=== PATIENT | male | born 1965 | race Caucasian/White ===

== ENCOUNTER 2019-08-15 09:05 | Inpatient (IN) | payer OTHER ==
[~2019-08-15] VITALS: Ht 183 cm; Wt 214.0 kg
--- NOTE | 2019-08-15 09:38 | History & Physical-Hospitalist ---
History of Present Illness HPI/Chief Complaint CC: New onset AF with elevated BNP and dyspnea HPI: This is a 54yoWM clinic patient of Valentin Lance who presented to the [facility] ER for dyspnea. Workup revealed new onset AF rate controlled with elevated BNP. Patient denies use of O2 and no CPAP and patient appears to have OHS since his BMI is 63. Patient denies CP troponin was negative. Patient reluctant to answer any of my questions. He lives with his mother. Source: patient, family, RN/MD Exam Limitations: no limitations Date Seen 08/15/19 Time Seen by a Provider: 11:00 Attending Physician Xochitl Luz Cheryl Arnp Referring Physician Date of Admission Home Medications & Allergies Home Medications Reviewed patient Home Medication Reconciliation performed by pharmacy medication reconciliations dermatology technician and/or nursing. Patients Allergies have been reviewed. Allergies Allergies Coded Allergies No Known Drug Allergies (Unverified08/15/19) Past Avywefx-Vdpaun-Mtxpbx Hx Past Med/Social Hx: Reviewed Nursing Past Med/Soc Hx, Reviewed and Corrections made Patient Social History Marrital Status: single Employed/Student: employed Alcohol Use: Denies Use Smoking Status: Former Smoker Recent Foreign Travel: No Contact w/other who traveled: No Past Medical History Cardiac: Hypertension Review of Systems Constitutional: see HPI Respiratory: dyspnea on exertion Cardiovascular: chest pain Physical Exam Physical Exam Vital Signs Vital Signs - First Documented 08/15/19 08/15/19 08/15/19 10:07 12:00 12:14 Temp 36.4 Pulse 85 Resp 14 B/P (MAP) 128/96 Pulse Ox 98 O2 Delivery Room Air O2 Flow Rate 1.00 FiO2 21 Capillary Refill : Height, Weight, BMI Height: '" Weight: lbs. oz. kg; BMI Method: General Appearance: No Apparent Distress, Chronically ill, Obese Eyes: Right Eye Normal Inspection, Right Eye PERRL HEENT: PERRL/EOMI, Normal ENT Inspection, Pharynx Normal, Moist Mucous Membranes Neck: Full Range of Motion, Normal Inspection, Non Tender Respiratory: Chest Non Tender, Lungs Clear, Normal Breath Sounds, No Accessory Muscle Use, No Respiratory Distress, Decreased Breath Sounds Cardiovascular: No Edema, No Gallop, No JVD, No Murmur, Normal Peripheral Pulses, Irregularly Irregular Gastrointestinal: Normal Bowel Sounds, No Organomegaly, No Pulsatile Mass, Non Tender, Soft Back: Normal Inspection, No CVA Tenderness, No Vertebral Tenderness Extremity: Normal Capillary Refill, Normal Inspection, Normal Range of Motion, Non Tender, No Calf Tenderness, No Pedal Edema Neurologic/Psychiatric: Alert, Oriented x3, No Motor/Sensory Deficits, Normal Mood/Affect Skin: Normal Color, Warm/Dry Lymphatic: No Adenopathy Results Results/Procedures Labs Laboratory Tests 08/15/19 12:21 Patient resulted labs reviewed. Assessment/Plan Admission Diagnosis Assessment: New onset AF with dyspnea Suspicious for OHS HTN DM Plan: Cardiology eval Admission Status: Inpatient Order (span 2 midnights) Reason for Inpatient Admission: New AF with BNP elevation Diagnosis/Problems Diagnosis/Problems (1) Atrial fibrillation with normal ventricular rate XOCHITL LUZ DO Aug 15, 2019 09:38
[2019-08-15 10:07] VITALS: BP 128/96
[2019-08-15 10:15] VITALS: BP 117/80
[2019-08-15] MEDS ORDERED: GLIP10TA13 PO (11:14)
[2019-08-15] MEDS ORDERED: FURO40TA4 PO (11:14)
[2019-08-15] MEDS ORDERED: METO100T12 PO (11:14)
[2019-08-15] MEDS ORDERED: LISI40TA PO (11:14)
[2019-08-15] MEDS ORDERED: PRAV40TA2 PO (11:14)
[2019-08-15] MEDS ORDERED: AMLO10TA7 PO (11:14)
[2019-08-15] MEDS ORDERED: METF-399 PO (11:14)
[2019-08-15] MEDS ORDERED: HYDR25TA4 PO (11:14)
[2019-08-15] MEDS: NS IV 1000 ML 1,000 ML IV SCH (11:37)
[2019-08-15] MEDS ORDERED: ASPI-983 PO (11:46)
[2019-08-15] MEDS ORDERED: MULT1TAB69 PO (11:46)
[2019-08-15] MEDS ORDERED: TURM538C PO (11:46)
[2019-08-15] MEDS ORDERED: GLUC-113 PO (11:46)
--- NOTE | 2019-08-15 11:46 | NUR ---
PATIENT STATES HE GAVE A LIST OF MEDICATIONS TO DAVID FROM HIS PHONE, HIS PHONE HAS SINCE DONE AN UPDATE AND HE IS NOT ABLE TO RETRIEVE THE LIST. HE STATES I WILL HAVE TO GET THE LIST FROM [facility] BECAUSE WITHOUT THE LIST ON HIS PHONE HE DOES NOT KNOW WHAT HE TAKES. I HAVE REQUESTED A LIST BE FAXED FROM [facility]. I UPDATED THE MED REC WITH WHAT HAS BEEN FILLED RECENTLY AT [facility] AND THE OT MEDS HE COULD REMEMBER TO LIST. I WILL FINALIZE THE MED REC WHEN I RECEIVE LIST FROM [facility]. THERE WAS NOT A MED LIST ON HIS CHART. Addendum: 08/15/19 at 1347 by ANSLEY SHEPHERD [facility] RECEIVED THE LIST FROM [facility] AT THIS TIME AND COMPARED IT WITH THE EXT MED HX. THE EXT MED HX SHOWS WHERE THE PATIENT HAS FILLED SEVERAL MEDICATIONS FOR 90 DAYS IN MAY AND THEN 10 DAYS LATER FILLED DOUBLE THE STRENGTH OF FUROSEMIDE AND IN JUNE FILLED DOUBLE THE STRENGTH OF LISINOPRIL, METFORMIN, AND GLIPIZIDE. HE STATES [facility] FILLED THE METFORMIN INCORRECTLY AND THEY WERE LOWERING HIS METFORMIN DOSE TO 500MG BID, HE DOES NOT KNOW WHY THE FILLED THE 1000MG BUT HE CUTS THEM IN HALF. OTHERWISE HE STATES HE TAKES THEM PRESCRIBED ON THE BOTTLES. THE MOST RECENTLY FILLED MEDS ON THE EXT MED HX MATCH THE LIST FROM [facility] EXCEPT FOR ON THE METOPROLOL. [facility] STATES 50MG TAB 2 TABS BID HOWEVER [facility] FILLED A 100MG TAB 2 TABS BID. I DISCUSSED THIS IN DETAIL WITH THE PATIENT AND HE IS PRETTY SURE HE TAKES IT PRESCRIBED ON THE BOTTLE. I UPDATED THE MED REC WITH THE MOST RECENTLY FILLED DIRECTIONS. THE TOPIRAMATE WAS LAST FILLED 100MG #90 11-18-18 - HE STATES HE HAS HAD 25MG TABS IN THE PAST WELL AND HAS BEEN PRESCRIBED THIS FOR WEIGHT LOSS. WHEN HE WAS TAKING IT DURING THE DAY IT PUT HIM IN A FOG SO FOR A LONG TIME HE STOPPED TAKING IT ALL TOGETHER. HE STATES NOW HE TAKES 100MG AT HS AND DOES NOT HAVE TROUBLE WITH THE FOG FEELING DURING THE DAY. HE HAD 25MG TABS LEFTOVER FROM BEFORE AND TOOK 4 OF THEM UNTIL THEY WERE GONE SO HE STATES HE IS NOT OUT OF THESE AND HAS BEEN TAKING THEM BUT THAT IS WHY HE HAS NOT FILLED THEM RECENTLY. HE TAKES THE FOLLOWING OTC: [employer] DAILY ASPIRIN 325MG DAILY GLUCOSAMINE AND CHONDROITIN TURMERIC DAILY
[2019-08-15 12:00] VITALS: BP 124/79
[2019-08-15 12:14] VITALS: BP 128/96
[2019-08-15 12:28] LABS: BASOPHILS % (AUTO) 0 % (0-10); EOSINOPHILS # (AUTO) 0.2 10^3/uL (0.0-0.3); EOSINOPHILS % (AUTO) 3 % (0-10); HEMATOCRIT 40 % (40-54); HEMOGLOBIN 12.8 G/DL (13.3-17.7); LYMPHOCYTES # (AUTO) 0.8 X 10^3 (1.0-4.0); LYMPHOCYTES % (AUTO) 11 % (12-44); MEAN CORPUSCULAR HEMOGLOBIN 29 PG (25-34); MEAN CORPUSCULAR HGB CONC 32 G/DL (32-36); MEAN CORPUSCULAR VOLUME 91 FL (80-99); MEAN PLATELET VOLUME 10.5 FL (7.4-10.4); MONOCYTES # (AUTO) 0.6 X 10^3 (0.0-1.0); MONOCYTES % (AUTO) 9 % (0-12); NEUTROPHILS # (AUTO) 5.3 X 10^3 (1.8-7.8); NEUTROPHILS % (AUTO) 76 % (42-75); PLATELET COUNT 218 10^3/uL (130-400); RED CELL DISTRIBUTION WIDTH 15.9 % (10.0-14.5)
--- NOTE | 2019-08-15 12:38 | NUR ---
VERBAL ORDERS RECEIVED FROM DR KEYS. WRITTEN DOWN AND REPEATED BACK TO DR KEYS.
[2019-08-15] MEDS ORDERED: FUROSEMIDE 40 MG/4 ML INJ (LASIX) IVP NR (12:45)
[2019-08-15] MEDS ORDERED: AMIODARONE FOR BOLUS 150 MG in D5W 100 ML IVPB 100 ML IV NR (12:45)
[2019-08-15 12:50] LABS: ALANINE AMINOTRANSFERASE 31 U/L (0-55); ALBUMIN 3.8 GM/DL (3.2-4.5); ALKALINE PHOSPHATASE 88 U/L (40-136); BILIRUBIN,TOTAL 0.3 MG/DL (0.1-1.0); BUN/CREATININE RATIO 20; CALCIUM 8.5 MG/DL (8.5-10.1); CARBON DIOXIDE 25 MMOL/L (21-32); CHLORIDE 103 MMOL/L (98-107); CREATININE SERUM 1.19 MG/DL (0.60-1.30); GFR ESTIMATED > 60; GLUCOSE 129 MG/DL (70-105); POTASSIUM 3.9 MMOL/L (3.6-5.0); SODIUM 138 MMOL/L (135-145)
[2019-08-15] MEDS: AMIODARONE INJECTION 450 MG in D5W IV SOLUTION (EXCEL) 250 ML IV SCH ×2 (12:59→21:05)
--- NOTE | 2019-08-15 13:14 | Consultation-Cardiology ---
HPI-Cardiology Cardiology Consultation: Date of Consultation 08/15/19 Date of Admission Attending Physician Xochitl Luz DO Admitting Physician Paula Blandon Consulting Physician Attila BAXTER MD HPI: Time Seen by a Provider: 12:30 Chief Complaint: Chest pain This is a 54-year-old gentleman who has history of diabetes and tobacco use. Morbidly obese. Presented to [facility] for shortness of breath as well as chest pain. He was found to have new onset atrial fibrillation. He was transferred to [facility] for further management. When I saw the patient he was not having any further chest pain. Shortness of breath had improved. No palpitations. Substernal chest pain. No significant radiation. No exacerbating or relieving factors. Moderate to severe intensity. Intermittent. No significant pertinent family history. Denies smoking however chews tobacco. Review of Systems-Cardiology Review of Systems Constitutional: As described under HPI; No As described under HPI, No no symptoms reported, No chills, No fever, No lightheadedness Eyes: No As described under HPI, No no symptoms reported, No blindness, No blurred vision, No contact lenses, No drainage, No decreased acuity, No foreign body sensation, No pain, No vision change Ears/Nose/Throat: No As described under HPI, No no symptoms reported, No chronic hearing loss, No ear discharge, No ear pain, No nasal drainage, No ulcerations Respiratory: No no symptoms reported; As described under HPI; No As described under HPI, No cough, No orthopnea; shortness of breath; No SOB with excertion Cardiovascular: No no symptoms reported; As described under HPI; No As described under HPI; chest pain; No edema, No irregular heart rate, No lightheadedness, No palpitations Gastrointestinal: No no symptoms reported, No As described under HPI, No abdomen distended, No abdominal pain, No blood streaked bowels, No constipation, No diarrhea, No nausea, No vomiting, No stool coloration changes Genitourinary: No As described under HPI, No burning, No dysuria, No discharge, No frequency, No flank pain, No hematuria, No urgency Skin: No rash, No skin related problems, No ulcerations Psychiatric/Neurological: No anxiety, No depression, No seizure, No focal weakness, No syncope Hematologic: No bleeding abnormalities EUJ-Nmqnzu-Zrhama Hx Patient Social History Recent Foreign Travel: No Recent Infectious Disease Expo: No Past Medical History PMH As described under Assessment. Allergies and Home Medications Allergies Coded Allergies: No Known Drug Allergies (Unverified , 08/15/19) Home Medications Amlodipine Besylate 10 Mg Tablet, 10 MG PO DAILY, (Reported) Aspirin 325 Mg Tablet.dr, 325 MG PO DAILY, (Reported) Furosemide 40 Mg Tablet, 40 MG PO DAILY, (Reported) Glipizide 10 Mg Tablet, 10 MG PO BID, (Reported) Gluc 2Kcl/Chondr/Maximo Hy/Hy AC 1 Each Capsule, 1 CAP PO DAILY, (Reported) Hydrochlorothiazide 25 Mg Tablet, 25 MG PO DAILY, (Reported) Lisinopril 40 Mg Tablet, 40 MG PO DAILY, (Reported) Metformin HCl 1,000 Mg Tablet, 500 MG PO BID, (Reported) TAKES 1/2 (1000MG) TABLET Metoprolol Tartrate 100 Mg Tablet, 200 MG PO BID, (Reported) TAKES 2 (100MG) TABLETS Multivitamin 1 Each Tablet, 1 TAB PO DAILY, (Reported) Pravastatin Sodium 40 Mg Tablet, 40 MG PO HS, (Reported) Topiramate 100 Mg Tablet, 100 MG PO HS, (Reported) Turmeric Root Extract 538 Mg Capsule, 538 MG PO DAILY, (Reported) Patient Home Medication List Home Medication List Reviewed: Yes Physical Exam-Cardiology Physical Exam Vital Signs/I&O 08/16/19 08/16/19 08/16/19 08/16/19 04:00 04:00 07:00 08:00 Temp 36.0 Pulse 83 105 Resp 16 B/P (MAP) 126/95 (105) Pulse Ox 96 98 96 O2 Delivery Nasal Cannula Nasal Cannula Nasal Cannula O2 Flow Rate 1.00 2.00 1.00 08/16/19 08/16/19 08/16/19 08/16/19 08:00 08:00 09:00 09:13 Temp 36.3 Pulse 81 Resp 14 B/P (MAP) 147/106 (120) Pulse Ox 100 100 O2 Delivery Nasal Cannula Nasal Cannula Nasal Cannula O2 Flow Rate 2.00 1.00 2.00 FiO2 97 08/16/19 08/16/19 08/16/19 08/16/19 09:17 10:00 12:00 12:00 Pulse 75 86 Resp 8 19 B/P (MAP) 166/106 (126) 138/102 (114) Pulse Ox 96 96 96 O2 Delivery Nasal Cannula Nasal Cannula Nasal Cannula Nasal Cannula O2 Flow Rate 1.00 1.00 1.00 1.00 08/16/19 12:00 Temp 36.1 08/16/19 00:00 Intake Total 650 ml Output Total 2500 ml Balance -1850 ml Capillary Refill : Constitutional: appears stated age; No apparent distress; well-developed, well- nourished HEENT: PERRL; No discharge; hearing is well preserved, oral hygience is good; No ulceration, No xanthelasmas are seen Neck: No carotid bruit; carotid pulses are 2 + bilaterally Respiratory: chest is bilaterally symmetric, lungs clear to auscultation Cardiovascular: irregularly irregular, S1 and S2 Gastrointestinal: soft, distended; No spleenomegaly Rectal: deferred Extremities: normal range of motion, non-tender, normal inspection; No clubbing, No cyanosis; no lower extremity edema bilateral; No significant edema Neurologic/Psychiatric: no motor/sensory deficits, alert, normal mood/affect, oriented x 3, power is 5/5 both on sides Skin: normal color, warm/dry; No rash, No ulcerations Data Review Labs Laboratory Tests 08/15/19 18:30: Troponin I 0.116H 08/15/19 20:52: Glucometer 184H 08/16/19 00:22: Troponin I 0.089H, White Blood Count 7.4, Red Blood Count 4.43, Hemoglobin 12.6L , Hematocrit 41, Mean Corpuscular Volume 91, Mean Corpuscular Hemoglobin 28, Mean Corpuscular Hemoglobin Concent 31L, Red Cell Distribution Width 16.1H, Platelet Count 239, Mean Platelet Volume 10.2, Neutrophils (%) (Auto) 76H, Lymphocytes (%) (Auto) 12, Monocytes (%) (Auto) 8, Eosinophils (%) (Auto) 3, B asophils (%) (Auto) 0, Neutrophils # (Auto) 5.7, Lymphocytes # (Auto) 0.9L, Monocytes # (Auto) 0.6, Eosinophils # (Auto) 0.3, Basophils # (Auto) 0.0, Sodium Level 140, Potassium Level 3.6, Chloride Level 101, Carbon Dioxide Level 26, A nion Gap 13, Blood Urea Nitrogen 24H, Creatinine 1.26, Estimat Glomerular Filtration Rate 60, BUN/Creatinine Ratio 19, Glucose Level 154H, Calcium Level 8.6, Corrected Calcium 8.8, Total Bilirubin 0.4, Aspartate Amino Transf (AST/SGOT) 16, Alanine Aminotransferase (ALT/SGPT) 31, Alkaline Phosphatase 82, Total Protein 7.0, Albumin 3.8 08/16/19 11:45: Glucometer 136H ECG Impression ECG Initial ECG Impression: Atrial Fibrillation A/P-Cardiology Assessment/Admission Diagnosis Chest pain, Diabetes, Acute congestive heart failure, New onset atrial fibrillation, Tobacco use, Hypertension, Hyperlipidemia Plan Chest pain, check serial troponin. EKG shows atrial fibrillation but no significant ST-T wave abnormalities. Echocardiogram. If positive troponin coronary angiography will be recommended. Diabetes, deferred to the primary team. Patient is at high risk for CAD. Acute congestive heart failure, Lasix. BNP is mildly elevated. Echocardiogram to check for systolic or diastolic congestive heart failure. New onset atrial fibrillation, Xarelto. Start amiodarone infusion. Cardizem CD for rate control. Tobacco use, strongly recommended to quit tobacco use Hypertension, Cardizem. Hyperlipidemia, continue statin therapy. Thank you for your consultation. Please call me if you have any questions. Obdulia Baxter MD, FACP, FACC, FSCAI, FHRS, CCDS Interventional Cardiology Cardiac Electrophysiology Vascular Medicine and Endovascular Interventions Clinical Quality Measures DVT/VTE Risk/Contraindication: Risk Factor Score Per Nursin RFS Level Per Nursing on Admit: 2=Moderate Attila BAXTER MD Aug 15, 2019 13:14
--- NOTE | 2019-08-15 13:21 | Pulmonary Consultation ---
History of Present Illness History of Present Illness Date Seen by Provider: Aug 15, 2019 Time Seen by Provider: 13:19 Date of Admission History of Present Illness 54yo morbidly obese pt presented from [facility] secondary to AFib RVR. Echo shows EF 45%. Pt has not ever had PSG. Allergies and Home Medications Allergies Coded Allergies: No Known Drug Allergies (Unverified , 08/15/19) Home Medications Amlodipine Besylate 10 Mg Tablet, 10 MG PO DAILY, (Reported) Aspirin 81 Mg Tablet.dr, 81 MG PO DAILY, (Reported) Furosemide 40 Mg Tablet, 40 MG PO DAILY, (Reported) Glipizide 10 Mg Tablet, 10 MG PO BID, (Reported) Gluc 2Kcl/Chondr/Maximo Hy/Hy AC 1 Each Capsule, 1 CAP PO DAILY, (Reported) Hydrochlorothiazide 25 Mg Tablet, 25 MG PO DAILY, (Reported) Lisinopril 40 Mg Tablet, 40 MG PO DAILY, (Reported) Metformin HCl 1,000 Mg Tablet, 1,000 MG PO BID, (Reported) Metoprolol Tartrate 100 Mg Tablet, 200 MG PO BID, (Reported) TAKES 2 (100MG) TABLETS Multivitamin 1 Each Tablet, 1 TAB PO DAILY, (Reported) Pravastatin Sodium 40 Mg Tablet, 40 MG PO HS, (Reported) Turmeric Root Extract 538 Mg Capsule, 538 MG PO DAILY, (Reported) Past Xlmjsbl-Fvloij-Gzlghn Hx Patient Social History Recent Foreign Travel: No Contact w/Someone Who Travel: No Recent Infectious Disease Expo: No Sepsis Event Evaluation Height, Weight, BMI Height: '" Weight: lbs. oz. kg; 63.54 BMI Method: Exam Exam Vital Signs Date Time Temp Pulse Resp B/P (MAP) Pulse Ox O2 Delivery O2 Flow Rate FiO2 08/15/19 12:27 76 08/15/19 12:14 36.4 85 98 21 08/15/19 12:00 75 124/79 (94) 96 Room Air 08/15/19 12:00 35.9 08/15/19 10:41 76 08/15/19 10:15 70 10 117/80 (92) 99 Room Air 08/15/19 10:07 36.4 85 14 128/96 98 Room Air Height & Weight Height: '" Weight: lbs. oz. kg; 63.54 BMI Method: Results Lab Laboratory Tests 08/15/19 12:21 Assessment/Plan Assessment/Plan Mobid obesity with OHS -Check ABG -Will need out pt testing Afib RVR -Currently on Amio per cardiology CHF EF 45% -QUAN Falcon DO Aug 15, 2019 13:21
[2019-08-15] MEDS ORDERED: ASPI325T32 PO (13:31)
[2019-08-15] MEDS ORDERED: TOPI100T11 PO (13:34)
[2019-08-15] MEDS ORDERED: RT-ALBUTEROL SULF 2.5 MG/3 ML PRE-MIX VIAL INH PRN (14:00)
--- NOTE | 2019-08-15 14:26 | Diagnostic Imaging Report ---
INDICATION: Dyspnea. TIME OF EXAM: 1:55 PM No prior studies are available for comparison. The heart is enlarged. Lungs are clear. No infiltrates or evidence of congestive failure is seen. No effusion or pneumothorax is detected. IMPRESSION: Cardiomegaly. No other significant abnormality is detected. Dictated by: Dictated on workstation # [id number]
[2019-08-15 14:47] LABS: ABG BASE EXCESS 3.2 MMOL/L (-2.5-2.5); ABG OXYGEN SATURATION 95 % (94-100); ABG PCO2 44 MMHG (35-45); ABG PH 7.41 (7.37-7.43); ABG PO2 69 MMHG (79-93)
[2019-08-15 14:48] LABS: ALLENS TEST POS; INSPIRED O2 1L; PATIENT TEMP 36.3; VENTILATOR NO
--- NOTE | 2019-08-15 15:22 | NUR ---
THIS NURSE NOTIFIED DR KEYS OF PT TROPONIN. NO NEW ORDERS AT THIS TIME. WILL CONTINUE TO MONITOR.
[2019-08-15] MEDS: RIVAROXABAN 20 MG TABLET (XARELTO) PO SCH (17:23)
[2019-08-15] MEDS ORDERED: RIVAROXABAN 15 MG TABLET (XARELTO) PO SCH (19:00)
[2019-08-15 20:00] VITALS: BP 159/93
[2019-08-16] VITALS (15 sets, daily range): BP systolic 119–170; BP diastolic 75–115
[2019-08-16] MEDS: NS IV 1000 ML 1,000 ML IV SCH ×2 (00:22→16:16)
[2019-08-16 00:37] LABS: BASOPHILS % (AUTO) 0 % (0-10); EOSINOPHILS # (AUTO) 0.3 10^3/uL (0.0-0.3); EOSINOPHILS % (AUTO) 3 % (0-10); HEMATOCRIT 41 % (40-54); HEMOGLOBIN 12.6 G/DL (13.3-17.7); LYMPHOCYTES # (AUTO) 0.9 X 10^3 (1.0-4.0); LYMPHOCYTES % (AUTO) 12 % (12-44); MEAN CORPUSCULAR HEMOGLOBIN 28 PG (25-34); MEAN CORPUSCULAR HGB CONC 31 G/DL (32-36); MEAN CORPUSCULAR VOLUME 91 FL (80-99); MEAN PLATELET VOLUME 10.2 FL (7.4-10.4); MONOCYTES # (AUTO) 0.6 X 10^3 (0.0-1.0); MONOCYTES % (AUTO) 8 % (0-12); NEUTROPHILS # (AUTO) 5.7 X 10^3 (1.8-7.8); NEUTROPHILS % (AUTO) 76 % (42-75); PLATELET COUNT 239 10^3/uL (130-400); RED CELL DISTRIBUTION WIDTH 16.1 % (10.0-14.5); WHITE BLOOD COUNT 7.4 10^3/uL (4.3-11.0)
[2019-08-16 01:01] LABS: ALBUMIN 3.8 GM/DL (3.2-4.5); BILIRUBIN,TOTAL 0.4 MG/DL (0.1-1.0); CALCIUM 8.6 MG/DL (8.5-10.1); CREATININE SERUM 1.26 MG/DL (0.60-1.30); POTASSIUM 3.6 MMOL/L (3.6-5.0)
--- NOTE | 2019-08-16 05:55 | Pulmonary Progress Note ---
Subjective Time Seen by a Provider: 05:55 Subjective/Events-last exam Still on Amio gtt. No complications noted. Sepsis Event Evaluation Height, Weight, BMI Height: '" Weight: lbs. oz. kg; 63.54 BMI Method: Exam Exam Vital Signs Date Time Temp Pulse Resp B/P (MAP) Pulse Ox O2 Delivery O2 Flow Rate FiO2 08/16/19 04:00 36.0 83 16 126/95 (105) 98 Nasal Cannula 2.00 08/16/19 04:00 96 Nasal Cannula 1.00 08/16/19 01:00 84 08/16/19 00:00 79 14 119/75 (90) 98 Nasal Cannula 2.00 08/16/19 00:00 96 Nasal Cannula 1.00 08/15/19 22:20 Nasal Cannula 2.00 08/15/19 21:00 Nasal Cannula 2.00 96 08/15/19 20:00 84 23 159/93 (115) 94 Room Air 08/15/19 20:00 36.3 08/15/19 20:00 96 Nasal Cannula 1.00 08/15/19 19:00 80 08/15/19 16:00 36.2 08/15/19 16:00 96 Nasal Cannula 1.00 08/15/19 16:00 90 32 97 Room Air 08/15/19 12:27 76 08/15/19 12:14 36.4 85 98 21 08/15/19 12:00 93 Nasal Cannula 1.00 08/15/19 12:00 75 124/79 (94) 96 Room Air 08/15/19 12:00 35.9 08/15/19 10:41 76 08/15/19 10:25 91 Room Air 08/15/19 10:15 70 10 117/80 (92) 99 Room Air 08/15/19 10:07 36.4 85 14 128/96 98 Room Air I & O 08/16/19 07:00 Intake Total 650 ml Output Total 2500 ml Balance -1850 ml Height & Weight Height: '" Weight: lbs. oz. kg; 63.54 BMI Method: General Appearance: No Apparent Distress, Chronically ill, Obese HEENT: PERRL/EOMI, Normal ENT Inspection, Pharynx Normal, Moist Mucous Membranes Neck: Full Range of Motion, Normal Inspection, Non Tender Respiratory: Chest Non Tender, Lungs Clear, Normal Breath Sounds, No Accessory Muscle Use, No Respiratory Distress, Decreased Breath Sounds Cardiovascular: No Edema, No Gallop, No JVD, No Murmur, Normal Peripheral Pulses, Irregularly Irregular Capillary Refill: Less Than 3 Seconds Extremity: Normal Capillary Refill, Normal Inspection, Normal Range of Motion, Non Tender, No Calf Tenderness, No Pedal Edema Neurologic/Psychiatric: Alert, Oriented x3, No Motor/Sensory Deficits, Normal Mood/Affect Skin: Normal Color, Warm/Dry Lymphatic: No Adenopathy Results Lab Laboratory Tests 08/15/19 12:21 08/16/19 00:22 Assessment/Plan Assessment/Plan Mobid obesity with OHS -ABG-- C02 44 -Will need out pt PSG Afib RVR -Currently on Amio per cardiology CHF EF 45% -QUAN Falcon DO Aug 16, 2019 05:55
[2019-08-16] MEDS: DILTIAZEM 120 MG (CARDIZEM CD) CAP PO SCH ×2 (08:00→12:10)
--- NOTE | 2019-08-16 09:05 | NUR ---
This nurse notified of patients blood pressure 152/102, order received to give patient amlodipine 5mg PO one time now.
[2019-08-16] MEDS ORDERED: amLODIPine 5 MG (NORVASC) TAB ONE (09:13)
[2019-08-16] MEDS ORDERED: amLODIPine 5 MG (NORVASC) TAB PO NR (09:15)
--- NOTE | 2019-08-16 11:15 | Progress Note - Hospitalist ---
Subjective HPI/CC On Admission Date Seen by Provider: Aug 16, 2019 Time Seen by Provider: 10:00 CC: New onset AF with elevated BNP and dyspnea HPI: This is a 54yoWM clinic patient of Valentin Natalio who presented to the [facility] ER f or dyspnea. Workup revealed new onset AF rate controlled with elevated BNP. Patient denies use of O2 and no CPAP and patient appears to have OHS since his BMI is 63. Patient denies CP troponin was negative. Patient reluctant to answer any of my questions. He lives with his mother. Subjective/Events-last exam patient complains of being hungry this Morning. In addition he notes that his back and feet hurt. He has been awake since 1230 this morning. Blood pressure is slightly elevated this morning. Review of Systems Cardiovascular: Edema Objective Exam Vital Signs Vital Signs Date Time Temp Pulse Resp B/P (MAP) Pulse Ox O2 Delivery O2 Flow Rate FiO2 08/17/19 12:00 94 Room Air 08/17/19 12:00 36.2 84 15 156/100 (118) 08/17/19 09:00 94 08/17/19 04:00 2.00 Capillary Refill : Less Than 3 Seconds General Appearance: No Apparent Distress, WD/WN, Obese HEENT: Normal ENT Inspection Neck: Limited Range of Motion Respiratory: Chest Non Tender, Lungs Clear, Normal Breath Sounds, No Accessory Muscle Use, No Respiratory Distress Cardiovascular: Irregularly Irregular Gastrointestinal: Soft, Distended Rectal: Deferred Back: Normal Inspection, No CVA Tenderness, No Vertebral Tenderness Extremity: Pedal Edema (with chronic venous stasis changes and superficial ulcerations) Neurologic/Psychiatric: Alert, Oriented x3, No Motor/Sensory Deficits, Normal Mood/Affect Results/Procedures Lab Laboratory Tests 08/17/19 03:21 Patient resulted labs reviewed. Assessment/Plan Assessment and Plan Assess & Plan/Chief Complaint new onset A. fib rate controlled currently-with elevated BNP Hypertension Type II diabetes Obstructive sleep apnea Morbid obesity Chronic venous insufficiency Peripheral neuropathy Plan per - will need evaluation for sleep apnea and possible nasal pillows. Patient would benefit from wound care consult because of chronic venous insufficiency and peripheral neuropathy. He is at high risk for complications. Possible CAD - heart cath today Clinical Quality Measures DVT/VTE Risk/Contraindication: Risk Factor Score Per Nursin RFS Level Per Nursing on Admit: 2=Moderate DONNA PICKARD MD Aug 16, 2019 11:15
[2019-08-16] MEDS: AMIODARONE INJECTION 450 MG in D5W IV SOLUTION (EXCEL) 250 ML IV SCH (12:11)
[2019-08-16] MEDS ORDERED: HEParin (CATH LAB) 2,000 ML IV ONE (12:33)
[2019-08-16] MEDS ORDERED: LIDOCAINE 1% INJ 20 ML 20 ML VIAL ONE (12:33)
[2019-08-16] MEDS ORDERED: NS IV 1000 ML 1,000 ML ONE (12:33)
[2019-08-16] MEDS ORDERED: fentaNYL INJECTION 100 MCG/2 ML AMP ONE ×2 (12:41→14:21)
[2019-08-16] MEDS ORDERED: MIDAZOLAM 5 MG/5 ML (VERSED) VIAL ONE ×2 (12:41→13:37)
--- NOTE | 2019-08-16 13:10 | NUR ---
Pt to dental laboratory technician via bed
[2019-08-16] MEDS ORDERED: HEParin 1000 UNIT/ML (10ML VIAL) FOR BOLUS ONE (13:52)
[2019-08-16] MEDS ORDERED: TICAGRELOR 90 MG TABLET (BRILINTA) PO ONE (14:02)
[2019-08-16] MEDS ORDERED: ASPIRIN 81 MG CHEW (CHILDREN'S ASA) ONE (14:02)
[2019-08-16] MEDS ORDERED: NITRO DRIP 25000 MCG/D5W 0 ML IV ONE (14:07)
--- NOTE | 2019-08-16 14:43 | Cardiac Procedure Note-CS/ASA ---
Pre-Procedure Note Pre-Op Procedure Note H&P Reviewed The H&P was reviewed, patient examined and no changes noted. Date H&P Reviewed: Aug 16, 2019 Time H&P Reviewed: 12:30 Conscious Sedation Pre-Proced Time 12:30 ASA Score 3 For ASA 3 and 4: Consider anesthesia and medical clearance. Also, for patients with a history of failed moderate sedation consider anesthesia. Airway Lungs Heart ASA score ASA 1: a normal healthy patient ASA 2: a patient with a mild systemic disease (mid diabetes, controlled hypertension, obesity ASA 3: a patient with a severe systemic disease that limits activity (angina, COPD, prior Myocardial infarction) ASA 4: a patient with an incapacitating disease that is a constant threat to life (CHF, renal failure) ASA 5: a moribund patient not expected to survive 24 hrs. (ruptured aneurysm) ASA 6: a declared brain- patient whose organs are being harvested. For emergent operations, add the letter E after the classification Mallampati Classification Grade 1 Sedation Plan Analgesia, Amnesia, Plan communicated to team members, Discussed options with patient/fam, Discussed risks with patient/fam The patient is an appropriate candidate to undergo the planned procedure, sedation, and anesthesia. The patient immediately re-assessed prior to indication. Attila KEYS MD Aug 16, 2019 14:43
--- NOTE | 2019-08-16 14:56 | Coronary Angiography & PCI ---
Coronary Angiography & PCI DATE OF PROCEDURE: 08/16/19 INDICATION: NSTEMI PREOPERATIVE DIAGNOSIS: Non-STEMI POSTOPERATIVE DIAGNOSIS: Severe RCA and OM1 stenosis treated successfully with drug-eluting stents. HISTORY: This is a 54-year-old gentleman with history of diabetes and chewing tobacco. He presents with non-STEMI. The patient also has new onset atrial fibrillation with controlled rate on Xarelto. Therefore, the patient was scheduled for coronary angiography. PROCEDURES PERFORMED: 1.Coronary angiography. 2.Left heart catheterization. 3.PCI to the distal RCA with drug-eluting stent. 4. PCI to the proximal OM1 with drug-eluting stent COMPLICATIONS: None. SPECIMENS: None. ESTIMATED BLOOD LOSS: 10 mL ANESTHESIA: Conscious sedation ANTICOAGULATION: IV heparin CONTRAST: 185 mL. FLUOROSCOPY: 8.8 minutes. FLOUROSCOPY DOSE: [id number] mgy. PROCEDURE DETAILS: The patient is a 54 male and was brought to the manager cardiac cath after informed consent was taken. All the risks and complications were explained in detail; this included the risk of bleeding, vascular damage, stroke, AR and even . The patient was draped and prepped in the usual sterile fashion. Arnaldo's test was abnormal therefore Access was gained in the right femoral artery with a 5 Emirati sheath. Coronary angiography and left heart catheterization was performed with a JR4 and JL4 catheter. FINDINGS: 1.Left main: Short left main. No disease. 2.LAD: No focal stenosis. Tapering of the LAD in the midsegment is noted with mild disease distally. 3.Left circumflex artery: Severe proximal OM1 stenosis. Stenosis severity 95 percent. There is mild disease distally in the same vessel. No other focal stenosis is noted. 4.RCA: Mild proximal disease. Severe distal stenosis. Stenosis severity 95 percent. Dominant RCA. 5.Left heart catheterization: LV pressure 138/17 mmHg. LVEDP 13 mmHg. Aortic pressure 120/82 mmHg. No gradient across the aortic valve. Borderline LV function with no clear wall motion abnormalities. RECOMMENDATIONS: 1. PCI to distal RCA is recommended. 2. PCI to proximal OM1 is recommended. INTERVENTION DETAILS: The patient was given aspirin 182 mg and Brilinta 180 mg before the PCI. We upgraded to a 6 Emirati sheath. A JR4 guide catheter, BMW guidewire, IV heparin for anticoagulation. ACT was over 220 seconds. The lesion in the distal RCA was crossed with the BMW wire. Direct stenting was performed with a science Linnea 3 x 28 mm stent at 18 priscilla for 40 seconds. Postdilatation was done with an NC Quantum 3.5 x 20 mm balloon. 3 inflations were done within the proximal and midsegment of the stent. These inflations were for 18 priscilla for 34 seconds, 18 priscilla for 26 seconds, 18 priscilla for 31 seconds. Excellent results with no vascular complications. JL4 guide catheter, BMW guidewire. The lesion in OM1 was crossed with the BMW guidewire. The lesion was direct stented with a science Linnea 3 x 15 mm drug- eluting stent at 18 priscilla for 18 seconds. Post-angiogram showed excellent results with no residue stenosis and KENIA-3 flow. The wire and balloon were taken out. Right femoral artery was closed with a minx device. The patient tolerated procedure well and did not have any complication. CONCLUSIONS: 1. Severe distal RCA and proximal OM1 stenosis treated with drug-eluting stents. 2. Continue aggressive secondary prevention measures. 3. Triple therapy including aspirin, xarelto, Plavix for one month followed by long-term Plavix and Xarelto. Obdulia Baxter MD, FACP, FACC, [facility] Interventional Cardiology Attila BAXTER MD Aug 16, 2019 14:56
--- NOTE | 2019-08-16 15:05 | NUR ---
Patient back to room CU4, patient arrived via bed with electronic lab technician RN. Patient is lying flat upon arrival. VSS. heart cath puncture site to right groin has a gauze and tegaderm dressing over it, dressing is clean dry and intact, Site is soft upon palpation. Patients mother is at bedside. Patient instructed on physicians order for bedrest for 4 hours, patient agreed. Bed in lowest position, wheels locked, call light is in reach. will continue to closely monitor
[2019-08-16] MEDS ORDERED: PATIENT MAY USE OWN MEDS, ALL PO SCH (15:15)
--- NOTE | 2019-08-16 15:25 | Cardiology Progress Note ---
Cardiology SOAP Progress Note Subjective: No further chest pain. Objective: I&O/Vital Signs 08/16/19 08/16/19 08/16/19 08/16/19 04:00 04:00 07:00 08:00 Temp 36.0 Pulse 83 105 Resp 16 B/P (MAP) 126/95 (105) Pulse Ox 96 98 96 O2 Delivery Nasal Cannula Nasal Cannula Nasal Cannula O2 Flow Rate 1.00 2.00 1.00 08/16/19 08/16/19 08/16/19 08/16/19 08:00 08:00 09:00 09:13 Temp 36.3 Pulse 81 Resp 14 B/P (MAP) 147/106 (120) Pulse Ox 100 100 O2 Delivery Nasal Cannula Nasal Cannula Nasal Cannula O2 Flow Rate 2.00 1.00 2.00 FiO2 97 08/16/19 08/16/19 08/16/19 08/16/19 09:17 10:00 12:00 12:00 Pulse 75 86 Resp 8 19 B/P (MAP) 166/106 (126) 138/102 (114) Pulse Ox 96 96 96 O2 Delivery Nasal Cannula Nasal Cannula Nasal Cannula Nasal Cannula O2 Flow Rate 1.00 1.00 1.00 1.00 08/16/19 12:00 Temp 36.1 08/16/19 00:00 Intake Total 650 ml Output Total 2500 ml Balance -1850 ml Constitutional: appears stated age; No apparent distress; well-developed, well- nourished Respiratory: chest is bilaterally symmetric, lungs clear to auscultation Cardiovascular: irregularly irregular, S1 and S2 Gastrointestional: soft, distended; No spleenomegaly Extremities: normal range of motion, non-tender, normal inspection; No clubbing, No cyanosis; no lower extremity edema bilateral; No significant edema Neurologic/Psychiatric: no motor/sensory deficits, alert, normal mood/affect, oriented x 3, power is 5/5 both on sides Skin: normal color, warm/dry; No rash, No ulcerations Results/Procedures: Labs Laboratory Tests 08/15/19 18:30: Troponin I 0.116H 08/15/19 20:52: Glucometer 184H 08/16/19 00:22: Troponin I 0.089H, White Blood Count 7.4, Red Blood Count 4.43, Hemoglobin 12.6L , Hematocrit 41, Mean Corpuscular Volume 91, Mean Corpuscular Hemoglobin 28, Mean Corpuscular Hemoglobin Concent 31L, Red Cell Distribution Width 16.1H, Platelet Count 239, Mean Platelet Volume 10.2, Neutrophils (%) (Auto) 76H, Lymphocytes (%) (Auto) 12, Monocytes (%) (Auto) 8, Eosinophils (%) (Auto) 3, Basophils (%) (Auto) 0, Neutrophils # (Auto) 5.7, Lymphocytes # (Auto) 0.9L, Monocytes # (Auto) 0.6, Eosinophils # (Auto) 0.3, Basophils # (Auto) 0.0, Sodium Level 140, Potassium Level 3.6, Chloride Level 101, Carbon Dioxide Level 26, Anion Gap 13, Blood Urea Nitrogen 24H, Creatinine 1.26, Estimat Glomerular Filtration Rate 60, BUN/Creatinine Ratio 19, Glucose Level 154H, Calcium Level 8.6, Corrected Calcium 8.8, Total Bilirubin 0.4, Aspartate Amino Transf ( AST/SGOT) 16, Alanine Aminotransferase (ALT/SGPT) 31, Alkaline Phosphatase 82, Total Protein 7.0, Albumin 3.8 08/16/19 11:45: Glucometer 136H A/P: Assessment/Dx: Non-STEMI Diabetes, Acute systolic congestive heart failure, New onset atrial fibrillation, Tobacco use, Hypertension, Hyperlipidemia Plan: Non-STEMI, coronary angiography today. Informed consent taken. Diabetes, deferred to the primary team. Acute congestive heart failure, Lasix. BNP is mildly elevated. Echocardiogram done 08/15/2019 showed an EF of 40-45 percent. Moderate to severe left atrial dilatation. New onset atrial fibrillation, Xarelto. On amiodarone infusion. Still in atrial fibrillation. Change Cardizem to metoprolol 50 mg. Tobacco use, strongly recommended to quit tobacco use Hypertension, metoprolol/NEGRITO inhibitor. Hyperlipidemia, high-dose statin therapy. Thank you for your consultation. Please call me if you have any questions. Obdulia Baxter MD, FACP, FACC, FSCAI, FHRS, CCDS Interventional Cardiology Cardiac Electrophysiology Vascular Medicine and Endovascular Interventions Attila BAXTER MD Aug 16, 2019 15:25
[2019-08-16] MEDS ORDERED: RIVAROXABAN 20 MG TABLET (XARELTO) PO SCH (17:00)
[2019-08-16] MEDS: RIVAROXABAN 20 MG TABLET (XARELTO) PO SCH (17:17)
--- NOTE | 2019-08-16 17:18 | NUR ---
Telephone orders received from to hold 1700 xarelto dose today, to order Brilinta 90mg to begin at 0800 tomorrow 08/17/2019 and to hold morning aspirin dose for now.
[2019-08-16] MEDS ORDERED: meTOprolol TARTRATE 50 MG (LOPRESSOR) TAB ONE (20:04)
[2019-08-16] MEDS: CLOPIDOGREL 75 MG (PLAVIX) TABLET PO SCH (20:12)
[2019-08-16] MEDS ORDERED: meTOproloL SUCCINATE 50 MG (TOPROL XL) TAB PO ONE (20:14)
[2019-08-16] MEDS ORDERED: meTOproloL SUCCINATE 50 MG (TOPROL XL) TAB PO SCH (20:15)
--- NOTE | 2019-08-16 20:34 | NUR ---
PT'S B/P 160/115 WITH HR 98, THIS RN CALLED DR. KEYS AT THIS TIME. NEW ORDER RECEIVED FOR 50 MG PO METOPROLOL. THIS RN ALSO VERIFIED WITH DR. KEYS THAT PT HAS PLAVIX, BRILINTA AND XARELTO ON HIS E-MAR. VERIFIED THOSE WERE CORRECT BUT THAT ONLY THE PLAVIX WILL BE GIVEN TONIGHT.
[2019-08-16] MEDS ORDERED: NICOTINE 21 MG (NICODERM) PATCH ONE (21:33)
[2019-08-16] MEDS: NICOTINE 21 MG (NICODERM) PATCH TD SCH (21:38)
[2019-08-17 00:20] VITALS: BP 138/90
[2019-08-17] MEDS: NS IV 1000 ML 1,000 ML IV SCH ×2 (02:40→10:10)
[2019-08-17 03:44] LABS: HEMOGLOBIN 12.6 G/DL (13.3-17.7); MEAN PLATELET VOLUME 10.5 FL (7.4-10.4); WHITE BLOOD COUNT 6.7 10^3/uL (4.3-11.0)
[2019-08-17 04:00] VITALS: BP 132/86
[2019-08-17 04:03] LABS: BUN/CREATININE RATIO 15; CALCIUM 8.5 MG/DL (8.5-10.1); CARBON DIOXIDE 23 MMOL/L (21-32); CHLORIDE 104 MMOL/L (98-107); CREATININE SERUM 1.08 MG/DL (0.60-1.30); GFR ESTIMATED > 60; GLUCOSE 181 MG/DL (70-105); POTASSIUM 3.9 MMOL/L (3.6-5.0); SODIUM 138 MMOL/L (135-145)
[2019-08-17] MEDS ORDERED: TICAGRELOR 90 MG TABLET (BRILINTA) PO SCH (08:00)
[2019-08-17] MEDS: NICOTINE 21 MG (NICODERM) PATCH TD SCH (08:10)
[2019-08-17] MEDS: CLOPIDOGREL 75 MG (PLAVIX) TABLET PO SCH (08:10)
--- NOTE | 2019-08-17 08:21 | Pulmonary Progress Note ---
Sepsis Event Evaluation Height, Weight, BMI Height: '" Weight: lbs. oz. kg; 63.54 BMI Method: Exam Exam Vital Signs Date Time Temp Pulse Resp B/P (MAP) Pulse Ox O2 Delivery O2 Flow Rate FiO2 08/17/19 07:00 105 08/17/19 04:00 93 Nasal Cannula 2.00 08/17/19 04:00 36.6 92 16 132/86 (101) 93 Nasal Cannula 2.00 08/17/19 01:00 83 08/17/19 00:20 37.0 98 18 138/90 (106) 94 Room Air 08/17/19 00:00 92 Room Air 08/16/19 21:00 Room Air 97 08/16/19 20:33 85 18 170/90 (116) 93 Room Air 08/16/19 20:00 93 Room Air 08/16/19 20:00 36.7 08/16/19 20:00 93 17 170/90 (116) 94 Room Air 08/16/19 19:30 98 20 160/115 (130) 94 Room Air 08/16/19 19:00 110 08/16/19 19:00 93 20 160/115 (130) 94 Room Air 08/16/19 18:00 90 17 157/113 (128) 96 Nasal Cannula 1.00 08/16/19 17:00 92 27 149/108 (122) 95 Nasal Cannula 1.00 08/16/19 16:30 87 13 137/97 (110) 96 Nasal Cannula 1.00 08/16/19 16:00 36.6 08/16/19 16:00 95 Nasal Cannula 1.00 08/16/19 16:00 85 14 131/111 (118) 95 Nasal Cannula 1.00 08/16/19 15:45 96 19 96 Room Air 08/16/19 15:30 84 19 139/93 (108) 95 Room Air 08/16/19 15:15 89 25 96 Room Air 08/16/19 15:05 102 08/16/19 15:00 96 123/82 (96) Room Air 08/16/19 12:00 36.1 08/16/19 12:00 86 19 138/102 (114) 96 Nasal Cannula 1.00 08/16/19 12:00 96 Nasal Cannula 1.00 08/16/19 10:00 75 8 166/106 (126) 96 Nasal Cannula 1.00 08/16/19 09:17 Nasal Cannula 1.00 08/16/19 09:13 100 Nasal Cannula 2.00 08/16/19 09:00 Nasal Cannula 1.00 97 l I & O 08/17/19 07:00 Intake Total 1990 ml Output Total 650 ml Balance 1340 ml Height & Weight Height: '" Weight: lbs. oz. kg; 63.54 BMI Method: General Appearance: No Apparent Distress, WD/WN, Obese HEENT: Normal ENT Inspection Neck: Limited Range of Motion Respiratory: Chest Non Tender, Lungs Clear, Normal Breath Sounds, No Accessory Muscle Use, No Respiratory Distress Cardiovascular: Irregularly Irregular Capillary Refill: Less Than 3 Seconds Extremity: Pedal Edema (with chronic venous stasis changes and superficial ulcerations) Neurologic/Psychiatric: Alert, Oriented x3, No Motor/Sensory Deficits, Normal Mood/Affect Skin: Normal Color, Warm/Dry Lymphatic: No Adenopathy Results Lab Laboratory Tests 08/15/19 12:21 08/16/19 00:22 08/17/19 03:21 Assessment/Plan Assessment/Plan Mobid obesity with OHS -ABG-- C02 44 -Will need out pt PSG Afib RVR -cardiology following CHF EF 45% -QUAN Falcon DO Aug 17, 2019 08:21
[2019-08-17] MEDS ORDERED: meTOproloL SUCCINATE 50 MG (TOPROL XL) TAB PO SCH (09:00)
[2019-08-17] MEDS ORDERED: lisINopril 40 MG (PRINIVIL) TABLET PO SCH (09:00)
[2019-08-17] MEDS ORDERED: ASPIRIN E.C. 81 MG (ECOTRIN) TAB PO SCH (09:00)
[2019-08-17] MEDS ORDERED: lisINopril 5 MG (PRINIVIL) TABLET PO SCH (09:00)
[2019-08-17 09:44] LABS: CHOLESTEROL 143 MG/DL (< 200); HDL CHOLESTEROL 34 MG/DL (40-60); TRIGLYCERIDES 164 MG/DL (<150); VLDL CHOLESTEROL 33 MG/DL (5-40)
--- NOTE | 2019-08-17 11:08 | Progress Note - Hospitalist ---
Subjective HPI/CC On Admission Date Seen by Provider: Aug 17, 2019 Time Seen by Provider: 09:15 CC: New onset AF with elevated BNP and dyspnea HPI: This is a 54yoWM clinic patient of Valentin Lance who presented to the [facility] ER f or dyspnea. Workup revealed new onset AF rate controlled with elevated BNP. Patient denies use of O2 and no CPAP and patient appears to have OHS since his BMI is 63. Patient denies CP troponin was negative. Patient reluctant to answer any of my questions. He lives with his mother. Subjective/Events-last exam patient feels better this morning. He had 2 drug eluting stents placed yesterday; one in the left circumflex and one in the RCA. he does admit to chewing tobacco and agrees to pursue cessation. He would like to go home today. He remains in A. fib with good rate control. He is off amiodarone.. Blood pressure is improved. Dr. Ross will pursue an overnight sleep study as an outpatient to see if we can get patient set up for a CPAP mask (although the patient is somewhat dedicated to his isabel) medications are reviewed Review of Systems Musculoskeletal: back pain Objective Exam Vital Signs Vital Signs Date Time Temp Pulse Resp B/P (MAP) Pulse Ox O2 Delivery O2 Flow Rate FiO2 08/17/19 12:00 94 Room Air 08/17/19 12:00 36.2 84 15 156/100 (118) 08/17/19 09:00 94 08/17/19 04:00 2.00 Capillary Refill : Less Than 3 Seconds General Appearance: No Apparent Distress, WD/WN, Obese HEENT: Normal ENT Inspection Respiratory: Chest Non Tender, Lungs Clear, Normal Breath Sounds, No Accessory Muscle Use, No Respiratory Distress Cardiovascular: Irregularly Irregular, Other (chronic venous stasis changes) Gastrointestinal: Normal Bowel Sounds, No Pulsatile Mass, Non Tender, Distended Rectal: Deferred Extremity: Inflammation, Pedal Edema Neurologic/Psychiatric: Alert, Oriented x3, No Motor/Sensory Deficits, Normal Mood/Affect Results/Procedures Lab Laboratory Tests 08/17/19 03:21 Patient resulted labs reviewed. Imaging: Reviewed Imaging Report Assessment/Plan Assessment and Plan Assess & Plan/Chief Complaint new onset A. fib rate controlled currently-with elevated BNP coronary artery disease status post 2 drug-eluting stents to the RCA and the left circumflex CHF systolic with an ejection fraction of 45 perce Hypertension Type II diabetes-consideration should be given to changing to SGLT2 medication and/ or byetta as an outpatient if patient can afford Obstructive sleep apnea Morbid obesity Chronic venous insufficiency Peripheral neuropathy Plan per - will need outpatient evaluation for sleep apnea and possible nasal pillows. Patient would benefit from wound care consult because of chronic venous insufficiency and peripheral neuropathy. He is at high risk for complications. Clinical Quality Measures DVT/VTE Risk/Contraindication: Risk Factor Score Per Nursin RFS Level Per Nursing on Admit: 2=Moderate DONNA PICKARD MD Aug 17, 2019 11:08
[2019-08-17 12:00] VITALS: BP 156/100
[2019-08-17] MEDS ORDERED: ASPI325T32 PO (12:57)
[2019-08-17] MEDS ORDERED: RIVA20TA2 PO (12:57)
[2019-08-17] MEDS ORDERED: CLOP75TA28 PO (12:57)
[2019-08-17] MEDS ORDERED: ATOR80TA76 PO (12:57)
--- NOTE | 2019-08-17 13:40 | Discharge Summary ---
Discharge Summary Hospital Course Was the Problem List Reviewed?: Yes Problems/Dx: (1) Atrial fibrillation with normal ventricular rate Status: Acute Hospital Course Date of Admission: Aug 15, 2019 at 09:55 Admission Diagnosis : atrial fibrillation Chest pain Hypertension Family Physician/Provider: Valentin Lance Date of Discharge: 08/17/19 Discharge Diagnosis: [ atrial fibrillation Coronary artery disease status post placement of 2 drug-eluting stents Hypertension Obstructive sleep apnea Type II diabetes Morbid obesity Tobaccoism] Hospital Course: [ ]the patient was admitted in the ICU on telemetry. He was placed on an amiodarone drip without cardioversion. The patient did have an elevated troponin with a depressed ejection fraction of 45 percent so was taken to heart catheter where it was found that he had greater than 95 percent stenosis of the left circumflex artery and the RCA. these lesions were amenable to intervention and a drug-eluting stent was placed in each vessel. The patient tolerated this well. The patient has been instructed to stop chewing tobacco and to follow-up with Dr. Ross for outpatient testing for obstructive sleep apnea. In addition, it is discussed with him the possibility of changing his diabetes medicines for better weight control. He is instructed to hold his metformin for 48 hours. He remained in atrial fibrillation throughout the hospitalization, but had good rate control. He is discharged on previous antihypertensive medications except for the Norvasc. Dr. Batxer-we will see the patient in follow-up in one month and if he has not converted spontaneously then Dr. Baxter will attempt cardioversion. The patient was discharged in stable and improved condition Labs and Pending Lab Test: Laboratory Tests 08/16/19 20:41: Glucometer 163H 08/17/19 03:21: White Blood Count 6.7, Red Blood Count 4.48, Hemoglobin 12.6L, Hematocrit 41, Mean Corpuscular Volume 92, Mean Corpuscular Hemoglobin 28, Mean Corpuscular Hemoglobin Concent 31L, Red Cell Distribution Width 16.0H, Platelet Count 212, Mean Platelet Volume 10.5H, Sodium Level 138, Potassium Level 3.9, Chloride L evel 104, Carbon Dioxide Level 23, Anion Gap 11, Blood Urea Nitrogen 16, Creatinine 1.08, Estimat Glomerular Filtration Rate > 60, BUN/Creatinine Ratio 15, Glucose Level 181H, Calcium Level 8.5, Triglycerides Level 164H, Cholesterol Level 143, LDL Cholesterol Direct 86, VLDL Cholesterol 33, HDL Cholesterol 34L 1/19/20 11:33: Glucometer 162H Home Meds Active Clopidogrel (Clopidogrel Bisulfate) 75 Mg Tablet 75 Mg PO DAILY 90 Days Xarelto Tablet (Rivaroxaban) 20 Mg Tablet 20 Mg PO DAILY@1700 90 Days Atorvastatin Calcium 80 Mg Tablet 80 Mg PO HS 90 Days Aspirin EC (Aspirin) 325 Mg Tablet. 81 Mg PO DAILY 90 Days Reported Topiramate 100 Mg Tablet 100 Mg PO HS Multivitamins (Multivitamin) 1 Each Tablet 1 Tab PO DAILY Turmeric (Turmeric Root Extract) 538 Mg Capsule 538 Mg PO DAILY Glucosamine & Chondroitin Cap (Gluc 2Kcl/Chondr/Maximo Hy/Hy AC) 1 Each Capsule 1 Cap PO DAILY Metoprolol Tartrate 100 Mg Tablet 200 Mg PO BID TAKES 2 (100MG) TABLETS Glipizide 10 Mg Tablet 10 Mg PO BID Furosemide 40 Mg Tablet 40 Mg PO DAILY Metformin HCl 1,000 Mg Tablet 500 Mg PO BID TAKES 1/2 (1000MG) TABLET Hydrochlorothiazide 25 Mg Tablet 25 Mg PO DAILY Lisinopril 40 Mg Tablet 40 Mg PO DAILY Assessment/Pt Instructions atrial fibrillation with fair rate control Coronary artery disease status post drug-eluting stents Hypertension Type II diabetes Obstructive sleep apnea Chronic venous insufficiency Morbid obesity Discharge Planning: >30 minutes discharge planning Discharge Instructions Discharge Diet: ADA Diet, Cardiac Diet Pneumonia Vaccine Order Indica: Yes Consultations DR. Vandana Baxter Discharge Physical Examination Vital Signs Vital Signs Date Time Temp Pulse Resp B/P (MAP) Pulse Ox O2 Delivery O2 Flow Rate FiO2 08/17/19 12:00 94 Room Air 08/17/19 12:00 36.2 84 15 156/100 (118) 08/17/19 09:00 94 08/17/19 04:00 2.00 General Appearance: No Apparent Distress, WD/WN, Obese HEENT: Normal ENT Inspection Respiratory: Chest Non Tender, Lungs Clear, Normal Breath Sounds, No Accessory Muscle Use, No Respiratory Distress Cardiovascular: No Gallop, No Murmur Gastrointestinal: Normal Bowel Sounds, Non Tender, Soft Extremity: Pedal Edema, Other (chronic venous stasis changes) Skin: Normal Color, Warm/Dry Neurologic/Psychiatric: Alert, Oriented x3, No Motor/Sensory Deficits, Normal Mood/Affect, kiln hand II-XII Norm as Tested Allergies: Coded Allergies: No Known Drug Allergies (Unverified , 08/15/19) Discharge Summary Date of Admission Aug 15, 2019 at 09:55 Date of Discharge July Discharge Date: Aug 17, 2019 Discharge Time: 14:00 Admission Diagnosis Assessment: New onset AF with dyspnea Suspicious for OHS HTN DM Plan: Cardiology, pulmonary consults Consults/Procedures Consulations DR. Vee Ross Procedures Echocardiogram Heart Cath Discharge Diagnosis new onset A. fib rate controlled currently-with elevated BNP coronary artery disease status post 2 drug-eluting stents to the RCA and the left circumflex CHF systolic with an ejection fraction of 45 perce Hypertension Type II diabetes-consideration should be given to changing to SGLT2 medication and/ or byetta as an outpatient if patient can afford Obstructive sleep apnea Morbid obesity Chronic venous insufficiency Peripheral neuropathy Plan per and Vandana- will need outpatient evaluation for sleep apnea and possible nasal pillows. Patient would benefit from wound care consult because of chronic venous insufficiency and peripheral neuropathy. He is at high risk for complications. (1) Atrial fibrillation with normal ventricular rate Status: Acute Clinical Quality Measures AMI/AHF: Ejection Fraction: Above/Equal to 40 D/C Medications Addressed: Som inhibitors, Beta nicolasa, Diuretic D/C Inst. for HF given: No DVT/VTE Risk/Contraindication: VTE Addressed: Yes Risk Factor Score Per Nursin RFS Level Per Nursing on Admit: 2=Moderate Smoking Cessation Counseling: Counseling-Symptomatic: 3-10 Minutes DONNA PICKARD MD Aug 17, 2019 13:35
--- NOTE | 2019-08-17 14:05 | Cardiology Progress Note ---
Cardiology SOAP Progress Note Subjective: No further chest pain. Mild shortness of breath. Objective: I&O/Vital Signs 08/17/19 08/17/19 08/17/19 08/17/19 04:00 04:00 07:00 08:00 Temp 36.6 Pulse 92 105 Resp 16 B/P (MAP) 132/86 (101) Pulse Ox 93 93 94 O2 Delivery Nasal Cannula Nasal Cannula Room Air O2 Flow Rate 2.00 2.00 08/17/19 08/17/19 08/17/19 08/17/19 09:00 12:00 12:00 13:00 Temp 36.2 Pulse 84 96 Resp 15 B/P (MAP) 156/100 (118) Pulse Ox 94 94 O2 Delivery Room Air Room Air Room Air FiO2 94 08/17/19 00:00 Intake Total 1750 ml Output Total 650 ml Balance 1100 ml Constitutional: appears stated age; No apparent distress; well-developed, well- nourished Respiratory: chest is bilaterally symmetric, lungs clear to auscultation Cardiovascular: irregularly irregular, S1 and S2 Gastrointestional: soft, distended; No spleenomegaly Extremities: normal range of motion, non-tender, normal inspection; No clubbing, No cyanosis; no lower extremity edema bilateral; No significant edema Neurologic/Psychiatric: no motor/sensory deficits, alert, normal mood/affect, oriented x 3, power is 5/5 both on sides Skin: normal color, warm/dry; No rash, No ulcerations Results/Procedures: Labs Laboratory Tests 08/16/19 20:41: Glucometer 163H 08/17/19 03:21: White Blood Count 6.7, Red Blood Count 4.48, Hemoglobin 12.6L, Hematocrit 41, Mean Corpuscular Volume 92, Mean Corpuscular Hemoglobin 28, Mean Corpuscular Hemoglobin Concent 31L, Red Cell Distribution Width 16.0H, Platelet Count 212, Mean Platelet Volume 10.5H, Sodium Level 138, Potassium Level 3.9, Chloride Level 104, Carbon Dioxide Level 23, Anion Gap 11, Blood Urea Nitrogen 16, Creatinine 1.08, Estimat Glomerular Filtration Rate > 60, BUN/Creatinine Ratio 15, Glucose Level 181H, Calcium Level 8.5, Triglycerides Level 164H, Cholesterol Level 143, LDL Cholesterol Direct 86, VLDL Cholesterol 33, HDL Cholesterol 34L 08/17/19 11:33: Glucometer 162H A/P: Assessment/Dx: Non-STEMI Diabetes, Acute systolic congestive heart failure, New onset atrial fibrillation, Tobacco use, Hypertension, Hyperlipidemia, Likely obstructive sleep apnea, Morbid obesity Plan: Non-STEMI, coronary angiography 08/16/2019 showed severe proximal OM1 stenosis treated with a drug-eluting stent. Severe distal RCA stenosis treated with a drug-eluting stent. Aspirin, Plavix, Xarelto for a month followed by Plavix and Xarelto long-term. Patient can be discharged today to follow-up in office in a month. Diabetes, deferred to the primary team. Acute congestive heart failure, Lasix. BNP is mildly elevated. Echocardiogram done 08/15/2019 showed an EF of 40-45 percent. Moderate to severe left atrial dilatation. New onset atrial fibrillation, Xarelto. DC amiodarone. Persistent atrial fibrillation. Metoprolol. Uninterrupted Xarelto for the next one month and then consider cardioversion. However chances of long-term rhythm control is modest considering morbid obesity, severe obstructive sleep apnea, moderate to severe left atrial dilatation. Tobacco use, strongly recommended to quit tobacco use Hypertension, metoprolol/NEGRITO inhibitor. Hyperlipidemia, high-dose statin therapy. Thank you for your consultation. Please call me if you have any questions. Obdulia Baxter MD, FACP, FACC, FSCAI, RS, CCDS Interventional Cardiology Cardiac Electrophysiology Vascular Medicine and Endovascular Interventions Clinical Quality Measures Smoking Cessation Counseling: Counseling-Symptomatic: 3-10 Minutes Attila BAXTER MD Aug 17, 2019 14:05
[2019-08-17] MEDS ORDERED: glipiZIDE 5 MG (GLUCOTROL) TAB PO SCH (16:30)
[2019-08-17] MEDS ORDERED: toPIRamate 100 MG (TOPAMAX) TAB PO SCH (21:00)
[2019-08-17] MEDS ORDERED: NON-FORMULARY MEDICATION 1 EA EA (Glipizide 10 MG) PO SCH (21:00)
[2019-08-18] MEDS ORDERED: lisINopril 40 MG (PRINIVIL) TABLET PO SCH (09:00)
== END 2019-08-17 13:45 | disposition home or self-care (01) | DRG 246 ==
LOC: ICU 09:55
PROVIDERS: ADMIT Internal Medicine; ATTEND Internal Medicine
PROC: 027135Z Dilation of Coronary Artery, Two Arteries with Two Drug-eluting Intraluminal Devices, Percutaneous Approach (ICD-10-PCS; principal; 2019-08-16)
PROC: 4A023N7 Measurement of Cardiac Sampling and Pressure, Left Heart, Percutaneous Approach (ICD-10-PCS; 2019-08-16)
PROC: B2111ZZ Fluoroscopy of Multiple Coronary Arteries using Low Osmolar Contrast (ICD-10-PCS; 2019-08-16)
PROC: B2151ZZ Fluoroscopy of Left Heart using Low Osmolar Contrast (ICD-10-PCS; 2019-08-16)
DX: I21.4 Non-ST elevation (NSTEMI) myocardial infarction (principal); I11.0 Hypertensive heart disease with heart failure; I50.21 Acute systolic (congestive) heart failure; I25.10 Atherosclerotic heart disease of native coronary artery without angina pectoris; I48.91 Unspecified atrial fibrillation; E66.2 Morbid (severe) obesity with alveolar hypoventilation; Z68.44 Body mass index [BMI] 60.0-69.9, adult; E11.42 Type 2 diabetes mellitus with diabetic polyneuropathy; Z79.84 Long term (current) use of oral hypoglycemic drugs; F17.220 Nicotine dependence, chewing tobacco, uncomplicated; I87.2 Venous insufficiency (chronic) (peripheral); E78.5 Hyperlipidemia, unspecified
CPT/HCPCS: 36415; 71045; 80048; 80053; 80061; 82805; 82962; 83880; 84484; 85025; 85027; 85347; 93005; 93306; 93458

== ENCOUNTER 2019-10-01 09:15 | Emergency (ER) | payer OTHER ==
[~2019-10-01] VITALS: Ht 182 cm; Wt 212.4 kg
[~2019-10-01 09:15] MED LIST: AMLO10TA7 PO; ASPI-983 PO; ASPI325T32 PO; ATOR80TA76 PO; CLOP75TA28 PO; FURO40TA4 PO; GLIP10TA13 PO; GLUC-113 PO; HYDR25TA4 PO; LISI40TA PO; METF-399 PO; METO100T12 PO; MULT1TAB69 PO; PRAV40TA2 PO; RIVA20TA2 PO; TOPI100T11 PO; TURM538C PO
--- NOTE | 2019-10-01 09:55 | ED EENT ---
History of Present Illness General Chief Complaint: Nasal Problems Stated Complaint: NOSE BLEED-12 HRS Nursing Triage Note: ARRIVED VIA AMB TO TRIAGE WITH COMPLAINTS OF A NOSE BLEED X12 HOURS. PT DID NOT TAKE HIS BP MED THIS AM. Source: patient Exam Limitations: no limitations History of Present Illness Date Seen by Provider: Oct 01, 2019 Time Seen by Provider: 09:55 Initial Comments 54-year-old male presents with a nosebleed. Patient reports that started about 12 hours ago. That is been a slow trickle that he is had difficulty getting it to stop. Patient does not have any lightheadedness. Denies any trauma. No other systemic complaints. Allergies and Home Medications Allergies Coded Allergies: No Known Drug Allergies (Unverified , 08/15/19) Home Medications Aspirin 325 Mg Tablet.dr, 81 MG PO DAILY Prescribed by: NISHA REYES on 08/17/19 1257 Atorvastatin Calcium 80 Mg Tablet, 80 MG PO HS Prescribed by: NISHA REYES on 08/17/19 1257 Cephalexin 500 Mg Tablet, 500 MG PO TID Prescribed by: JOELLE CARVAJAL on 10/01/19 1122 Clopidogrel Bisulfate 75 Mg Tablet, 75 MG PO DAILY Prescribed by: NISHA REYES on 08/17/19 1257 Furosemide 40 Mg Tablet, 40 MG PO DAILY, (Reported) Glipizide 10 Mg Tablet, 10 MG PO BID, (Reported) Gluc 2Kcl/Chondr/Maximo Hy/Hy AC 1 Each Capsule, 1 CAP PO DAILY, (Reported) Hydrochlorothiazide 25 Mg Tablet, 25 MG PO DAILY, (Reported) Lisinopril 40 Mg Tablet, 40 MG PO DAILY, (Reported) Metformin HCl 1,000 Mg Tablet, 500 MG PO BID, (Reported) TAKES 1/2 (1000MG) TABLET Metoprolol Tartrate 100 Mg Tablet, 200 MG PO BID, (Reported) TAKES 2 (100MG) TABLETS Multivitamin 1 Each Tablet, 1 TAB PO DAILY, (Reported) Rivaroxaban 20 Mg Tablet, 20 MG PO DAILY@1700 Prescribed by: NISHA REYES on 08/17/19 1257 Topiramate 100 Mg Tablet, 100 MG PO HS, (Reported) Turmeric Root Extract 538 Mg Capsule, 538 MG PO DAILY, (Reported) Patient Home Medication List Home Medication List Reviewed: Yes Review of Systems Review of Systems Constitutional: No chills, No fever, No weakness Ears: No Symptoms Reported Nose: epistaxis Mouth: no symptoms reported Throat: no symptoms reported Respiratory: no symptoms reported Cardiovascular: no symptoms reported Gastrointestinal: no symptoms reported Skin: no symptoms reported Neurological: No Symptoms Reported Past Ytfixmb-Xmevjl-Ivmsev Hx Past Med/Social Hx: Reviewed Nursing Past Med/Soc Hx Patient Social History Recent Foreign Travel: No Contact w/Someone Who Travel: No Recent Infectious Disease Expo: No Past Medical History Hypertension Physical Exam Vital Signs Vital Signs - First Documented 10/01/19 09:37 Temp 36.2 Pulse 107 Resp 16 B/P (MAP) 163/108 (126) Pulse Ox 94 O2 Delivery Room Air Height, Weight, BMI Height: '" Weight: lbs. oz. kg; 64.00 BMI Method: General Appearance: no apparent distress Eyes: bilateral eye normal inspection Nose: active bleeding (right nare) Cardiovascular: normal peripheral pulses, regular rate, rhythm Respiratory: chest non-tender, lungs clear, normal breath sounds Gastrointestinal: non tender Neurologic/Psychiatric: trimmer press clippings II-XII nml as tested, alert, normal mood/affect, oriented x 3 Skin: normal color, warm/dry Procedures/Interventions Nasal : Nasal Location: Right Clots Cleared from Nasal: Patient Blowing Nasal Drops Instilled: Afrin Inspection with: Otoscope Nasal Procedures: Rapid Rhino Progress Patient had a Rhino Rocket placed. Patient did have quite a bit discomfort. However is well positioned. This time there is no acute complications. Rhino Rocket was soaked in [place] a prior to insertion Progress/Results/Core Measures Results/Orders My Orders Orders - CARVAJAL,JOELLE L DO Oxymetazoline 0.05% Nasal [place] (Afrin 0. (10/01/19 21:00) Oxymetazoline 0.05% Nasal [place] (Afrin 0. (10/01/19 10:03) Tranexamic Acid Injection (Cyklokapron I (10/01/19 11:00) Medications Given in ED Current Medications Medications Dose Ordered Sig/Mark Route Start Time Stop Time Status Last Admin Dose Admin Tranexamic Acid 20 mg ONCE ONCE IV 10/01/19 11:00 10/01/19 11:01 DC 10/01/19 11:05 20 MG Vital Signs/I&O 10/01/19 09:37 Temp 36.2 Pulse 107 Resp 16 B/P (MAP) 163/108 (126) Pulse Ox 94 O2 Delivery Room Air Blood Pressure Mean: 126 Progress Progress Note : Time: 11:24 Progress Note We were unable to get bleeding controlled with pressure, Afrin. Patient has onto anticoagulants. Replaced and a Rhino Rocket with [place] a. He will be placed on Keflex 500 mg 3 times a day. We did call and make him an appointment with Dr. Soto's office at 345pm on Sunday.10/03/19 Departure Impression Primary Impression: Epistaxis Disposition: HOME, SELF-CARE Condition: Stable Departure-Patient Inst. Referrals: HONG SANCHEZ (PCP) Primary Care Physician Patient Instructions: Nosebleeds (DC) Add. Discharge Instructions: Please follow-up at the ENT office at 345 on Sunday. Please arrive approximately 30 minutes early. All discharge instructions reviewed with patient and/or family. Voiced understanding. Scripts Cephalexin (Cephalexin) 500 Mg Tablet 500 MG PO TID, #9 TAB 0 Refills Prov: JOELLE CARVAJAL DO 10/01/19 JOELLE CARVAJAL DO Oct 01, 2019 09:55
[2019-10-01] MEDS ORDERED: OXYMETAZOLINE (AFRIN) 0.05% NA 30 ML BTL ONE (10:03)
--- NOTE | 2019-10-01 10:52 | NUR ---
REPORT GIVEN TO TWILA CHIANG
[2019-10-01] MEDS ORDERED: TRANEXAMIC ACID 100 MG/ML 10 ML INJECTION IV ONE (11:00)
[2019-10-01] MEDS ORDERED: CEPH500T PO (11:22)
[2019-10-01 11:43] VITALS: BP 152/88
[2019-10-01] MEDS ORDERED: OXYMETAZOLINE (AFRIN) 0.05% NA 30 ML BTL SCH (21:00)
--- OUTSIDE RECORDS SUMMARY | 2019-10-06 05:46 | XMS REPORT ---
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 618281364193 7 Problem Daytime sleepiness R40.0 Active 1 99390070102 Problem Morbid obesity due to excess calories E66.01 Active 904581963 Problem Hypertension, essential I10 Active 44458335 Problem Type 2 diabetes mellitus without complications E11 .9 Active 658212497 ALLERGIES No Information ENCOUNTERS Encounter Location Date Diagnosis [place] [address] [address] Jul, Coronary artery disease of [place] artery of [place] heart with stable angina pectoris I25.118 ; Family history of colon cancer Z80.0 and Colon cancer screening Z12.11 [place] [address] [address] May, [place] [address] [address] May, Controlled type 2 diabetes mellitus with out complication, without long-term current use of insulin E11.9 [place] [address] [address] May, Controlled type 2 diabetes mellitus with out complication, without long-term current use of insulin E11.9 and Hypertension, benign I10 [place] [address] [address] Jan, [place] [address] [address] Dec, [place] [address] [address] Dec, Type 2 diabetes mellitus without complic ations E11.9 ; Primary insomnia F51.01 and Morbid obesity E66.01 [place] [address] [address] Oct, [place] [address] [address] Oct, [place] [address] [address] Oct, [place] [address] [address] Aug, BMI 50.0-59.9, adult Z68.43 and Morbid o besity due to excess calories E66.01 [place] [address] [address] Jul, Morbid obesity due to excess calories E6 6.01 [place] [address] [address] Jun, Morbid obesity due to excess calories E6 6.01 [place] [address] [address] May, Type 2 diabetes mellitus without complic ations E11.9 and Morbid obesity due to excess calories E66.01 [place] [address] [address] Apr, Type 2 diabetes mellitus without complic ations E11.9 [place] [address] [address] Mar, Hypertension, benign I10 [place] [address] [address] 10 Mar, 2018 Localized edema R60.0 ; Controlled type 2 diabetes mellitus without complication, without long-term current use of insulin E11.9 and Morbid obesity due to excess calories E66.01 [place] [address] [address] Feb, Type 2 diabetes mellitus without complic ations E11.9 and Edema of both legs R60.0 [place] [address] [address] Feb, Type 2 diabetes mellitus without complic ations E11.9 and Edema of both legs R60.0 [place] [address] [address] Oct, Controlled type 2 diabetes mellitus with out complication, without long-term current use of insulin E11.9 and Localized edema R60.0 [place] [address] [address] Sep, Hypertension, essential I10 [place] [address] [address] Apr, Controlled type 2 diabetes mellitus with out complication, without long-term current use of insulin E11.9 [place] [address] [address] Feb, Morbid obesity due to excess calories E6 6.01 [place] [address] [address] Jan, Hypertension, essential I10 and Morbid o besity due to excess calories E66.01 [place] [address] [address] Dec, Controlled type 2 diabetes mellitus with out complication, without long-term current use of insulin E11.9 ; Morbid obesity due to excess calories E66.01 ; Daytime sleepiness R40.0 and Pain in left knee M25.562 [place] [address] [address] Dec, Controlled type 2 diabetes mellitus with out complication, without long-term current use of insulin E11.9 ; Morbid obesity due to excess calories E66.01 ; Daytime sleepiness R40.0 and Pain in left knee M25.562 [place] [address] [place] [address] Jun, Hypertension, benign I10 and Controlled type 2 diabetes mellitus without complication, without long-term current use of insulin E11.9 [facility] [address] [place] [address] [id number] [place] [address] Jan, Uncontrolled type 2 diabetes mellitus wi thout complication, without long-term current use of insulin E11.65 and Hypertension, benign I10 [facility] [address] [address] Jan, Pain in joint, ankle and foot 719.47 ; D iabetes mellitus without mention of complication, type II or unspecified type, not stated as uncontrolled 250.00 and Essential hypertension, benign 401.1 [facility] [address] [address] Jan, Pain in joint, ankle and foot 719.47 ; D iabetes mellitus without mention of complication, type II or unspecified type, not stated as uncontrolled 250.00 and Essential hypertension, benign 401.1 [facility] [address] [id number] [place] [address] Oct, [facility] [address] [address] Oct, [facility] [address] [address] Aug, [facility] [address] [place] [id number] [place] [address] Aug, [facility] [address] [place] [id number] [place] [address] Aug, [facility] [address] [address] Aug, [facility] [address] [address] Jun, [facility] [address] [place] [id number] [place] [address] Jun, [facility] [address] [address] [id number] [place] [address] Jun, [facility] [address] [facility] [id number] [place] [address] Jun, [facility] [address] [id number] [place] [address] May, [facility] [address] [id number] [place] [address] May, [facility] [address] [id number] [place] [address] Dec, [facility] [address] [id number] [place] [address] Dec, [facility] [address] [id number] [place] [address] Dec, [facility] [address] [id number] [place] [address] Dec, [facility] [address] [id number] [place] [address] November, [facility] [address] [id number] [place] [address] November, [facility] [address] [id number] [place] [address] November, [facility] [address] [id number] [place] [address] November, [facility] [address] [id number] [place] [address] November, [facility] [address] [id number] [place] [address] November, [facility] [address] [id number] [place] [address] November, [facility] [address] [id number] [place] [address] November, [facility] [address] [id number] [place] [address] November, [facility] [address] [id number] [place] [address] November, [facility] [address] [id number] [place] [address] Oct, [facility] [address] [id number] [place] [address] Oct, [facility] [address] [id number] [place] [address] Oct, [facility] [address] [id number] [place] [address] Aug, [facility] [address] [id number] [place] [address] Aug, [facility] [address] [id number] [place] [address] Jul, [facility] [address] [place] [id number] [place] [address] Jul, [facility] [address] [id number] [place] [address] Jul, [facility] [address] [place] [id number] [place] [address] Jul, [facility] [address] [id number] [place] [address] Jun, [facility] [address] [id number] [place] [address] Jun, [facility] [address] [id number] [place] [address] Jun, [facility] [address] [id number] [place] [address] Jun, [facility] [address] [id number] [place] [address] Jun, [facility] [address] [id number] [place] [address] Jun, [facility] [address] [id number] [place] [address] Jun, IMMUNIZATIONS No Known Immunizations SOCIAL HISTORY Never Assessed REASON FOR VISIT PLAN OF CARE VITAL SIGNS MEDICATIONS No Known Medications RESULTS No Results PROCEDURES Procedure Date Ordered Result Body Site THER/PROPH/DIAG INJ, SC/IM Aug 28, 2013 INSTRUCTIONS MEDICATIONS ADMINISTERED No Known Medications MEDICAL (GENERAL) HISTORY Type Description Date Medical History Hypertension Medical History Diabetes type 2 Medical History Hyperlipidemia Medical History testicular hypofuction Surgical History heart stent 07/2019 Hospitalization History Arm fracture 1972
--- OUTSIDE RECORDS SUMMARY | 2019-10-06 05:46 | XMS REPORT ---
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 Active 859801789393 7 Problem Daytime sleepiness R40.0 Active 1 69840530656 Problem Morbid obesity due to excess calories E66.01 Active 485705103 Problem Hypertension, essential I10 Active 50497289 Problem Type 2 diabetes mellitus without complications E11 .9 Active 205905108 ALLERGIES No Information ENCOUNTERS Encounter Location Date Diagnosis [place] [address] [address] Jul, Coronary artery disease of [place] artery of [place] heart with stable angina pectoris I25.118 ; Family history of colon cancer Z80.0 and Colon cancer screening Z12.11 [place] [address] [address] May, [place] [address] [address] May, Controlled type 2 diabetes mellitus with out complication, without long-term current use of insulin E11.9 [place] [address] [address] May, Controlled type 2 diabetes mellitus with out complication, without long-term current use of insulin E11.9 and Hypertension, benign I10 [place] [address] [address] Jan, [facility] [address] [address] Dec, [place] [address] [address] Dec, Type 2 diabetes mellitus without complic ations E11.9 ; Primary insomnia F51.01 and Morbid obesity E66.01 [place] [address] [address] Oct, [place] [address] [address] Oct, [place] [address] [address] Oct, [place] [address] [address] Aug, BMI 50.0-59.9, adult Z68.43 and Morbid o besity due to excess calories E66.01 [place] [address] [address] Jul, Morbid obesity due to excess calories E6 6.01 [place] [address] [address] Jun, Morbid obesity due to excess calories E6 6.01 [place] [address] [address] May, Type 2 diabetes mellitus without complic ations E11.9 and Morbid obesity due to excess calories E66.01 [place] [address] [address] Apr, Type 2 diabetes mellitus without complic ations E11.9 [place] [address] [address] Mar, Hypertension, benign I10 [place] [address] [address] Mar, Localized edema R60.0 ; Controlled type 2 diabetes mellitus without complication, without long-term current use of insulin E11.9 and Morbid obesity due to excess calories E66.01 [place] [address] [address] Feb, Type 2 diabetes mellitus without complic ations E11.9 and Edema of both legs R60.0 [place] [address] [address] Feb, Type 2 diabetes mellitus without complic ations E11.9 and Edema of both legs R60.0 [place] [address] [address] Oct, Controlled type 2 diabetes mellitus with out complication, without long-term current use of insulin E11.9 and Localized edema R60.0 [place] [address] [address] Sep, Hypertension, essential I10 [place] [address] [address] Apr, Controlled type 2 diabetes mellitus with out complication, without long-term current use of insulin E11.9 [place] [address] [address] Feb, Morbid obesity due to excess calories E6 6.01 [place] [address] [address] Jan, Hypertension, essential I10 and Morbid o besity due to excess calories E66.01 [place] [address] [address] Dec, Controlled type 2 diabetes mellitus with out complication, without long-term current use of insulin E11.9 ; Morbid obesity due to excess calories E66.01 ; Daytime sleepiness R40.0 and Pain in left knee M25.562 [place] [address] [address] Dec, Controlled type 2 diabetes mellitus with out complication, without long-term current use of insulin E11.9 ; Morbid obesity due to excess calories E66.01 ; Daytime sleepiness R40.0 and Pain in left knee M25.562 [facility] [address] [address] Jun, Hypertension, benign I10 and Controlled type 2 diabetes mellitus without complication, without long-term current use of insulin E11.9 [facility] [address] [address] Jan, Uncontrolled type 2 diabetes mellitus wi thout complication, without long-term current use of insulin E11.65 and Hypertension, benign I10 [facility] [address] [address] Jan, Pain in joint, ankle and foot 719.47 ; D iabetes mellitus without mention of complication, type II or unspecified type, not stated as uncontrolled 250.00 and Essential hypertension, benign 401.1 [place] [address] [address] Jan, Pain in joint, ankle and foot 719.47 ; D iabetes mellitus without mention of complication, type II or unspecified type, not stated as uncontrolled 250.00 and Essential hypertension, benign 401.1 [facility] [address] [address] Oct, [facility] [address] [address] Oct, [facility] [address] [address] Aug, [facility] [address] [address] Aug, [facility] [address] [address] Aug, [facility] [address] [address] Aug, [facility] [address] [address] Jun, [facility] [address] [address] Jun, [facility] [address] [facility] [id number] [place] [place] [address] Jun, [facility] [address] [facility] [facility] [id number] [place] [address] Jun, [facility] [address] [id number] [place] [address] May, [facility] [address] [id number] [place] [address] May, [facility] [address] [id number] [place] [address] Dec, [facility] [address] [id number] [place] [address] Dec, [facility] [address] [id number] [place] [address] Dec, [facility] [address] [id number] [place] [address] Dec, [facility] [address] [id number] [place] [address] November, [facility] [address] [id number] [place] [address] November, [facility] [address] [id number] [place] [address] November, [facility] [address] [id number] [place] [address] November, [facility] [address] [id number] [place] [address] November, [facility] [address] [id number] [place] [address] November, [facility] [address] [id number] [place] [address] November, [facility] [address] [id number] [place] [address] November, [facility] [address] [id number] [place] [address] November, [facility] [address] [id number] [place] [address] November, [facility] [address] [id number] [place] [address] Oct, [facility] [address] [id number] [place] [address] Oct, [facility] [address] [id number] [place] [address] Oct, [facility] [address] [id number] [place] [address] Aug, [facility] [address] [id number] [place] [address] Aug, [facility] [address] [id number] [place] [address] Jul, [facility] [address] [id number] [place] [address] Jul, [facility] [address] [id number] [place] [address] Jul, [facility] [address] [id number] [place] [address] Jul, [facility] [address] [id number] [place] [address] Jun, [facility] [address] [id number] [place] [address] Jun, [facility] [address] [id number] [place] [address] Jun, [facility] [address] [place] [id number] [place] [address] Jun, [facility] [address] [id number] [place] [address] Jun, [facility] [address] [id number] [place] [address] Jun, [facility] [address] [id number] [place] [address] Jun, IMMUNIZATIONS No Known Immunizations SOCIAL HISTORY Never Assessed REASON FOR VISIT PLAN OF CARE VITAL SIGNS Height 73 in 2013-09-24 Weight 445.4 lbs 2013-09-24 Temperature 97.9 degrees Fahrenheit 2013-09-24 Blood pressure systolic 172 mmHg 2013-09-24 Blood pressure diastolic 110 mmHg 2013-09-24 MEDICATIONS No Known Medications RESULTS No Results PROCEDURES Procedure Date Ordered Result Body Site THER/PROPH/DIAG INJ, SC/IM Sep 24, 2013 INSTRUCTIONS MEDICATIONS ADMINISTERED No Known Medications MEDICAL (GENERAL) HISTORY Type Description Date Medical History Hypertension Medical History Diabetes type 2 Medical History Hyperlipidemia Medical History testicular hypofuction Surgical History heart stent 07/2019 Hospitalization History Arm fracture 1972
--- OUTSIDE RECORDS SUMMARY | 2019-10-06 05:46 | XMS REPORT ---
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 Active 803063516315 7 Problem Daytime sleepiness R40.0 Active 1 79872431095 Problem Morbid obesity due to excess calories E66.01 Active 811413708 Problem Hypertension, essential I10 Active 16032104 Problem Type 2 diabetes mellitus without complications E11 .9 Active 355019536 ALLERGIES No Information ENCOUNTERS Encounter Location Date Diagnosis [place] [address] [address] Jul, Coronary artery disease of [place] artery of [place] heart with stable angina pectoris I25.118 ; Family history of colon cancer Z80.0 and Colon cancer screening Z12.11 [place] [address] [address] May, [place] [address] [address] May, Controlled type 2 diabetes mellitus with out complication, without long-term current use of insulin E11.9 [place] [address] [address] May, Controlled type 2 diabetes mellitus with out complication, without long-term current use of insulin E11.9 and Hypertension, benign I10 [place] [address] [address] Jan, [facility] [address] [address] Dec, [place] [address] [address] Dec, Type 2 diabetes mellitus without complic ations E11.9 ; Primary insomnia F51.01 and Morbid obesity E66.01 [place] [address] [address] Oct, [place] [address] [address] Oct, [place] [address] [address] Oct, [place] [address] [address] Aug, BMI 50.0-59.9, adult Z68.43 and Morbid o besity due to excess calories E66.01 [place] [address] [address] Jul, Morbid obesity due to excess calories E6 6.01 [place] [address] [address] Jun, Morbid obesity due to excess calories E6 6.01 [place] [address] [address] May, Type 2 diabetes mellitus without complic ations E11.9 and Morbid obesity due to excess calories E66.01 [place] [address] [address] Apr, Type 2 diabetes mellitus without complic ations E11.9 [place] [address] [address] Mar, Hypertension, benign I10 [place] [address] [address] Mar, Localized edema R60.0 ; Controlled type 2 diabetes mellitus without complication, without long-term current use of insulin E11.9 and Morbid obesity due to excess calories E66.01 [place] [address] [address] Feb, Type 2 diabetes mellitus without complic ations E11.9 and Edema of both legs R60.0 [place] [address] [address] Feb, Type 2 diabetes mellitus without complic ations E11.9 and Edema of both legs R60.0 [place] [address] [address] Oct, Controlled type 2 diabetes mellitus with out complication, without long-term current use of insulin E11.9 and Localized edema R60.0 [place] [address] [address] Sep, Hypertension, essential I10 [place] [address] [address] Apr, Controlled type 2 diabetes mellitus with out complication, without long-term current use of insulin E11.9 [place] [address] [address] Feb, Morbid obesity due to excess calories E6 6.01 [place] [address] [address] Jan, Hypertension, essential I10 and Morbid o besity due to excess calories E66.01 [place] [address] [address] Dec, Controlled type 2 diabetes mellitus with out complication, without long-term current use of insulin E11.9 ; Morbid obesity due to excess calories E66.01 ; Daytime sleepiness R40.0 and Pain in left knee M25.562 [place] [address] [address] Dec, Controlled type 2 diabetes mellitus with out complication, without long-term current use of insulin E11.9 ; Morbid obesity due to excess calories E66.01 ; Daytime sleepiness R40.0 and Pain in left knee M25.562 [facility] [address] [address] Jun, Hypertension, benign I10 and Controlled type 2 diabetes mellitus without complication, without long-term current use of insulin E11.9 [facility] [address] [address] Jan, Uncontrolled type 2 diabetes mellitus wi thout complication, without long-term current use of insulin E11.65 and Hypertension, benign I10 [facility] [address] [address] Jan, Pain in joint, ankle and foot 719.47 ; D iabetes mellitus without mention of complication, type II or unspecified type, not stated as uncontrolled 250.00 and Essential hypertension, benign 401.1 [place] [address] [address] Jan, Pain in joint, ankle and foot 719.47 ; D iabetes mellitus without mention of complication, type II or unspecified type, not stated as uncontrolled 250.00 and Essential hypertension, benign 401.1 [facility] [address] [address] Oct, [facility] [address] [address] Oct, [facility] [address] [address] Aug, [facility] [address] [address] Aug, [facility] [address] [address] Aug, [facility] [address] [address] Aug, [facility] [address] [address] Jun, [facility] [address] [address] Jun, [facility] [address] [facility] [id number] [place] [address] Jun, [facility] [address] [facility] [id number] [place] [address] Jun, [facility] [address] [id number] [place] [address] May, [facility] [address] [id number] [place] [address] May, [facility] [address] [id number] [place] [address] Dec, [facility] [address] [id number] [place] [address] Dec, [facility] [address] [id number] [place] [address] Dec, [facility] [address] [id number] [place] [address] Dec, [facility] [address] [id number] [place] [address] November, [facility] [address] [id number] [place] [address] November, [facility] [address] [id number] [place] [address] November, [facility] [address] [id number] [place] [address] November, [facility] [address] [id number] [place] [address] November, [facility] [address] [id number] [place] [address] November, [facility] [address] [id number] [place] [address] November, [facility] [address] [id number] [place] [address] November, [facility] [address] [id number] [place] [address] November, [facility] [address] [id number] [place] [address] November, [facility] [address] [id number] [place] [address] Oct, [facility] [address] [id number] [place] [address] Oct, [facility] [address] [id number] [place] [address] Oct, [facility] [address] [id number] [place] [address] Aug, [facility] [address] [id number] [place] [address] Aug, [facility] [address] [id number] [place] [address] Jul, [facility] [address] [id number] [place] [address] Jul, [facility] [address] [id number] [place] [address] Jul, [facility] [address] [id number] [place] [address] Jul, [facility] [address] [id number] [place] [address] Jun, [facility] [address] [id number] [place] [address] Jun, [facility] [address] [id number] [place] [address] Jun, [facility] [address] [place] [id number] [place] [address] Jun, [facility] [address] [id number] [place] [address] Jun, [facility] [address] [id number] [place] [address] Jun, [facility] [address] [facility] [id number] [place] [address] Jun, IMMUNIZATIONS No Known Immunizations SOCIAL HISTORY Never Assessed REASON FOR VISIT PLAN OF CARE VITAL SIGNS MEDICATIONS No Known Medications RESULTS No Results PROCEDURES Procedure Date Ordered Result Body Site THER/PROPH/DIAG INJ, SC/IM December 16, 2013 INSTRUCTIONS MEDICATIONS ADMINISTERED No Known Medications MEDICAL (GENERAL) HISTORY Type Description Date Medical History Hypertension Medical History Diabetes type 2 Medical History Hyperlipidemia Medical History testicular hypofuction Surgical History heart stent 07/2019 Hospitalization History Arm fracture 1972
--- OUTSIDE RECORDS SUMMARY | 2019-10-06 05:46 | XMS REPORT ---
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 Active 988278271894 7 Problem Daytime sleepiness R40.0 Active 1 57015125553 Problem Morbid obesity due to excess calories E66.01 Active 073264723 Problem Hypertension, essential I10 Active 26146902 Problem Type 2 diabetes mellitus without complications E11 .9 Active 684604238 ALLERGIES No Information ENCOUNTERS Encounter Location Date Diagnosis [place] [address] [address] Jul, 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 ; Family history of colon cancer Z80.0 and Colon cancer screening Z12.11 [place] [address] [address] May, [place] [address] [address] May, Controlled type 2 diabetes mellitus with out complication, without long-term current use of insulin E11.9 [place] [address] [address] May, Controlled type 2 diabetes mellitus with out complication, without long-term current use of insulin E11.9 and Hypertension, benign I10 [place] [address] [address] Jan, [facility] [address] [address] Dec, [place] [address] [address] Dec, Type 2 diabetes mellitus without complic ations E11.9 ; Primary insomnia F51.01 and Morbid obesity E66.01 [place] [address] [address] Oct, [place] [address] [address] Oct, [place] [address] [address] Oct, [place] [address] [address] Aug, BMI 50.0-59.9, adult Z68.43 and Morbid o besity due to excess calories E66.01 [place] [address] [address] Jul, Morbid obesity due to excess calories E6 6.01 [place] [address] [address] Jun, Morbid obesity due to excess calories E6 6.01 [place] [address] [address] May, Type 2 diabetes mellitus without complic ations E11.9 and Morbid obesity due to excess calories E66.01 [place] [address] [address] Apr, Type 2 diabetes mellitus without complic ations E11.9 [place] [address] [address] Mar, Hypertension, benign I10 [place] [address] [address] Mar, Localized edema R60.0 ; Controlled type 2 diabetes mellitus without complication, without long-term current use of insulin E11.9 and Morbid obesity due to excess calories E66.01 [place] [address] [address] Feb, Type 2 diabetes mellitus without complic ations E11.9 and Edema of both legs R60.0 [place] [address] [address] Feb, Type 2 diabetes mellitus without complic ations E11.9 and Edema of both legs R60.0 [place] [address] [address] Oct, Controlled type 2 diabetes mellitus with out complication, without long-term current use of insulin E11.9 and Localized edema R60.0 [place] [address] [address] Sep, Hypertension, essential I10 [place] [address] [address] Apr, Controlled type 2 diabetes mellitus with out complication, without long-term current use of insulin E11.9 [place] [address] [address] Feb, Morbid obesity due to excess calories E6 6.01 [place] [address] [address] Jan, Hypertension, essential I10 and Morbid o besity due to excess calories E66.01 [place] [address] [address] Dec, Controlled type 2 diabetes mellitus with out complication, without long-term current use of insulin E11.9 ; Morbid obesity due to excess calories E66.01 ; Daytime sleepiness R40.0 and Pain in left knee M25.562 [place] [address] [address] Dec, Controlled type 2 diabetes mellitus with out complication, without long-term current use of insulin E11.9 ; Morbid obesity due to excess calories E66.01 ; Daytime sleepiness R40.0 and Pain in left knee M25.562 [facility] [address] [address] Jun, Hypertension, benign I10 and Controlled type 2 diabetes mellitus without complication, without long-term current use of insulin E11.9 [facility] [address] [address] Jan, Uncontrolled type 2 diabetes mellitus wi thout complication, without long-term current use of insulin E11.65 and Hypertension, benign I10 [facility] [address] [address] Jan, Pain in joint, ankle and foot 719.47 ; D iabetes mellitus without mention of complication, type II or unspecified type, not stated as uncontrolled 250.00 and Essential hypertension, benign 401.1 [place] [address] [address] Jan, Pain in joint, ankle and foot 719.47 ; D iabetes mellitus without mention of complication, type II or unspecified type, not stated as uncontrolled 250.00 and Essential hypertension, benign 401.1 [facility] [address] [address] Oct, [facility] [address] [address] Oct, [facility] [address] [address] Aug, [facility] [address] [address] Aug, [facility] [address] [address] Aug, [facility] [address] [address] Aug, [facility] [address] [address] Jun, [facility] [address] [address] Jun, [facility] [address] [facility] [id number] [facility] [place] [address] Jun, [facility] [address] [facility] [id number] [facility] [place] [address] Jun, [facility] [address] [id number] [facility] [place] [address] May, [facility] [address] [id number] [place] [address] May, [facility] [address] [id number] [place] [address] Dec, [facility] [address] [id number] [place] [address] Dec, [facility] [address] [id number] [place] [address] Dec, [facility] [address] [id number] [place] [address] Dec, [facility] [address] [id number] [place] [address] November, [facility] [address] [id number] [place] [address] November, [facility] [address] [id number] [place] [address] November, [facility] [address] [id number] [place] [address] November, [facility] [address] [id number] [place] [address] November, [facility] [address] [id number] [place] [address] November, [facility] [address] [id number] [place] [address] November, [facility] [address] [id number] [place] [address] November, [facility] [address] [id number] [place] [address] November, [facility] [address] [id number] [place] [address] November, [facility] [address] [id number] [place] [address] Oct, [facility] [address] [id number] [place] [address] Oct, [facility] [address] [id number] [place] [address] Oct, [facility] [address] [id number] [place] [address] Aug, [facility] [address] [id number] [place] [address] Aug, [facility] [address] [id number] [place] [address] Jul, [facility] [address] [id number] [place] [address] Jul, [facility] [address] [id number] [place] [address] Jul, [facility] [address] [id number] [place] [address] Jul, [facility] [address] [id number] [place] [address] Jun, [facility] [address] [id number] [place] [address] Jun, [facility] [address] [id number] [place] [address] Jun, [facility] [address] [place] [id number] [place] [address] Jun, [facility] [address] [id number] [place] [address] Jun, [facility] [address] [id number] [place] [address] Jun, [facility] [address] [facility] [id number] [place] [address] Jun, IMMUNIZATIONS No Known Immunizations SOCIAL HISTORY Never Assessed REASON FOR VISIT PLAN OF CARE VITAL SIGNS MEDICATIONS No Known Medications RESULTS No Results PROCEDURES No Known procedures INSTRUCTIONS MEDICATIONS ADMINISTERED No Known Medications MEDICAL (GENERAL) HISTORY Type Description Date Medical History Hypertension Medical History Diabetes type 2 Medical History Hyperlipidemia Medical History testicular hypofuction Surgical History heart stent 07/2019 Hospitalization History Arm fracture 1972
--- OUTSIDE RECORDS SUMMARY | 2019-10-06 05:47 | XMS REPORT ---
Author Author Benny PEÑALOZA Organization [facility] Address [address] [place] [address] Care Team Providers Care Dovetailer Name Role Phone ANABELA GERMÁN Unavailable PROBLEMS Type Condition ICD9-CM Code BNW21-CN Code Onset Dates Condition S tatus SNOMED Code Problem Hypertension, benign I10 Active 98766535 Problem Type 2 diabetes mellitus without complications E11 .9 Active 445957324 Problem Primary insomnia F51.01 Active 397 2004 Problem Controlled type 2 diabetes m ellitus without complication, without long- term current use of insulin E11.9 Active 962831755 Problem Daytime sleepiness R40.0 Active 1 14973430103 Problem Morbid obesity due to excess calories E66.01 Active 526290088 Problem Hypertension, essential I10 Active 95645531 ALLERGIES No Information ENCOUNTERS Encounter Location Date Diagnosis [facility] [address] [place] [id number] [place] [address] Jan, [facility] [address] [facility] [id number] [address] [place] [address] Dec, [facility] [address] [place] [id number] [address] [place] [address] Dec, Type 2 diabetes mellitus wit hout complications E11.9 ; Primary insomnia F51.01 and Morbid obesity E66.01 [facility] [address] [facility] [id number] [address] [place] [address] Oct, [facility] [address] [place] [id number] [address] [place] [address] Oct, [facility] [address] [place] [id number] [address] [place] [address] Oct, [facility] [address] [facility] [id number] [address] [place] [address] Aug, BMI 50.0-59.9, adult Z68.43 and Morbid obesity due to excess calories E66.01 [place] [address] [facility] [id number] [address] [place] [address] Jul, Morbid obesity due to excess calories E66.01 [place] [address] [facility] [id number] [address] [place] [address] Jun, Morbid obesity due to excess calories E66.01 [place] [address] [facility] [id number] [address] [place] [address] May, Type 2 diabetes mellitus wit hout complications E11.9 and Morbid obesity due to excess calories E66.01 [place] [address] [place] [id number] [address] [place] [address] Apr, Type 2 diabetes mellitus wit hout complications E11.9 [place] [address] [place] [id number] [address] [place] [address] Mar, Hypertension, benign I10 [place] [address] [facility] [id number] [address] [place] [address] 10 Mar, 2018 Localized edema R60.0 ; Cont rolled type 2 diabetes mellitus without complication, without long-term current use of insulin E11.9 and Morbid obesity due to excess calories E66.01 [place] [address] [place] [id number] [address] [place] [address] Feb, Type 2 diabetes mellitus wit hout complications E11.9 and Edema of both legs R60.0 [place] [address] [facility] [id number] [address] [place] [address] Feb, Type 2 diabetes mellitus wit hout complications E11.9 and Edema of both legs R60.0 [place] [address] [facility] [id number] [address] [place] [address] Oct, Controlled type 2 diabetes m ellitus without complication, without long-term current use of insulin E11.9 and Localized edema R60.0 [place] [address] [place] [id number] [address] [place] [address] Sep, Hypertension, essential I10 [place] [address] [id number] [address] [place] [address] Apr, Controlled type 2 diabetes m malik without complication, without long-term current use of insulin E11.9 [place] [address] [id number] [address] [place] [address] Feb, Morbid obesity due to excess calories E66.01 [place] [address] [id number] [address] [place] [address] Jan, Hypertension, essential I10 and Morbid obesity due to excess calories E66.01 [place] [address] [id number] [address] [place] [address] Dec, Controlled type 2 diabetes m malik without complication, without long-term current use of insulin E11.9 ; Morbid obesity due to excess calories E66.01 ; Daytime sleepiness R40.0 and Pain in left knee M25.562 [place] [address] [id number] [address] [place] [address] Dec, Controlled type 2 diabetes [place] gan without complication, without long-term current use of insulin E11.9 ; Morbid obesity due to excess calories E66.01 ; Daytime sleepiness R40.0 and Pain in left knee M25.562 [place] [address] [id number] [address] [place] [address] Jun, Hypertension, benign I10 and Controlled type 2 diabetes mellitus without complication, without long-term current use of insulin E11.9 [place] [address] [id number] [address] [place] [address] Jan, Uncontrolled type 2 diabetes mellitus without complication, without long-term current use of insulin E11.65 and Hypertension, benign I10 [place] [address] [id number] [address] [place] [address] Jan, Pain in joint, ankle and kaylee t 719.47 ; Diabetes mellitus without mention of complication, type II or unspecified type, not stated as uncontrolled 250.00 and Essential hypertension, benign 401.1 [facility] [address] [id number] [address] [place] [address] Jan, Pain in joint, ankle and kaylee t 719.47 ; Diabetes mellitus without mention of complication, type II or unspecified type, not stated as uncontrolled 250.00 and Essential hypertension, benign 401.1 [facility] [address] [id number] [address] [place] [address] Oct, [facility] [address] [id number] [address] [place] [address] Oct, [facility] [address] [id number] [address] [place] [address] Aug, [facility] [address] [id number] [address] [place] [address] Aug, [facility] [address] [id number] [address] [place] [address] Aug, [facility] [address] [id number] [address] [place] [address] Aug, [facility] [address] [id number] [address] [place] [address] Jun, [facility] [address] [id number] [address] [place] [address] Jun, [facility] [address] [id number] [address] [place] [address] Jun, [facility] [address] [id number] [address] [place] [address] Jun, [facility] [address] [id number] [address] [place] [address] May, [facility] [address] [id number] [address] [place] [address] May, [facility] [address] [id number] [address] [place] [address] Dec, [facility] [address] [id number] [address] [place] [address], [place] [address] Dec, [facility] [address] [id number] [address] [place] [address], [place] [address] Dec, [facility] [address] [id number] [address] [place] [address], [place] [address] Dec, [facility] [address] [id number] [address] [place] [address], [place] [address] November, [facility] [address] [id number] [address] [place] [address], [place] [address] November, [facility] [address] [id number] [address] [place] [address], [place] [address] November, [facility] [address] [id number] [address] [place] [address], [place] [address] November, [facility] [address] [id number] [address] [place] [address], [place] [address] November, [facility] [address] [id number] [address] [place] [address], [place] [address] November, [facility] [address] [id number] [address] [place] [address], [place] [address] November, [facility] [address] [id number] [address] [place] [address], [place] [address] November, [facility] [address] [id number] [address] [place] [address], [place] [address] November, [facility] [address] [id number] [address] [place] [address], [place] [address] November, [facility] [address] [id number] [address] [place] [address], [place] [address] Oct, [facility] [address] [id number] [address] [place] [address], [place] [address] Oct, [facility] [address] [id number] [address] [place] [address] Oct, [facility] [address] [id number] [address] [place] [address] Aug, [facility] [address] [id number] [address] [place] [address] Aug, [facility] [address] [id number] [address] [place] [address] Jul, [facility] [address] [id number] [address] [place] [address] Jul, [facility] [address] [id number] [address] [place] [address] Jul, [facility] [address] [id number] [address] [place] [address] Jul, [facility] [address] [id number] [address] [place] [address] Jun, [facility] [address] [id number] [address] [place] [address] Jun, [facility] [address] [id number] [address] [place] [address] Jun, [facility] [address] [id number] [address] [place] [address] Jun, [facility] [address] [id number] [address] [place] [address] Jun, [facility] [address] [id number] [address] [place] [address] Jun, [facility] [address] [id number] [address] [place] [address] Jun, IMMUNIZATIONS No Known Immunizations SOCIAL HISTORY Never Assessed REASON FOR VISIT PLAN OF CARE VITAL SIGNS Height 73 in 2014-01-16 Weight 437.7 lbs 2014-01-16 Temperature 98.3 degrees Fahrenheit 2014-01-16 Heart Rate 80 bpm 2014-01-16 Respiratory Rate 20 2014-01-16 Blood pressure systolic 182 mmHg 2014-01-16 Blood pressure diastolic 98 mmHg 2014-01-16 MEDICATIONS Unknown Medications RESULTS No Results PROCEDURES Procedure Date Ordered Result Body Site THER/PROPH/DIAG INJ, SC/IM January 16, 2014 GLYCATED HEMOGLOBIN TEST January 16, 2014 INSTRUCTIONS MEDICATIONS ADMINISTERED No Known Medications MEDICAL (GENERAL) HISTORY Type Description Date Medical History Hypertension Medical History Diabetes type 2 Medical History Hyperlipidemia Medical History testicular hypofuction Surgical History No Surgical history information Hospitalization History Arm fracture 1972
--- OUTSIDE RECORDS SUMMARY | 2019-10-06 05:47 | XMS REPORT ---
Author Author Benny PEÑALOZA Organization [facility] Address [address] [place] [address] Care Team Providers Care Medical Records Receptionist Name Role Phone GERMÁN PEÑALOZA Unavailable PROBLEMS Type Condition ICD9-CM Code UTU09-IR Code Onset Dates Condition S tatus SNOMED Code Problem Hypertension, benign I10 Active 95705034 Problem Type 2 diabetes mellitus without complications E11 .9 Active 776527714 Problem Primary insomnia F51.01 Active 397 2004 Problem Controlled type 2 diabetes m ellitus without complication, without long- term current use of insulin E11.9 Active 012143524 Problem Daytime sleepiness R40.0 Active 1 73730194841 Problem Morbid obesity due to excess calories E66.01 Active 256269032 Problem Hypertension, essential I10 Active 32799230 ALLERGIES No Information ENCOUNTERS Encounter Location Date Diagnosis [place] [address] [address] May, [place] [address] [address] May, Controlled type 2 diabetes mellitus with out complication, without long-term current use of insulin E11.9 [place] [address] [address] May, Controlled type 2 diabetes mellitus with out complication, without long-term current use of insulin E11.9 and Hypertension, benign I10 [place] [address] [address] Jan, [place] [address] [address] Dec, [place] [address] [address] Dec, Type 2 diabetes mellitus without complic ations E11.9 ; Primary insomnia F51.01 and Morbid obesity E66.01 [place] [address] [address] Oct, [place] [address] [address] Oct, [place] [address] [address] Oct, [place] [address] [address] Aug, BMI 50.0-59.9, adult Z68.43 and Morbid o besity due to excess calories E66.01 [place] [address] [address] Jul, Morbid obesity due to excess calories E6 6.01 [place] [address] [address] Jun, Morbid obesity due to excess calories E6 6.01 [place] [address] [address] May, Type 2 diabetes mellitus without complic ations E11.9 and Morbid obesity due to excess calories E66.01 [place] [address] [address] Apr, Type 2 diabetes mellitus without complic ations E11.9 [place] [address] [address] Mar, Hypertension, benign I10 [place] [address] [address] 10 Mar, 2018 Localized edema R60.0 ; Controlled type 2 diabetes mellitus without complication, without long-term current use of insulin E11.9 and Morbid obesity due to excess calories E66.01 [place] [address] [address] Feb, Type 2 diabetes mellitus without complic ations E11.9 and Edema of both legs R60.0 [place] [address] [address] Feb, Type 2 diabetes mellitus without complic ations E11.9 and Edema of both legs R60.0 [place] [address] [place] [id number] Oct, Controlled type 2 diabetes mellitus with out complication, without long-term current use of insulin E11.9 and Localized edema R60.[address] [address] Sep, Hypertension, essential I10 [address] [address] Apr, Controlled type 2 diabetes mellitus with out complication, without long-term current use of insulin E11.[address] [address] Feb, Morbid obesity due to excess calories E6 6.[address] [address] Jan, Hypertension, essential I10 and Morbid o besity due to excess calories E66.[address] [address] Dec, Controlled type 2 diabetes mellitus with out complication, without long-term current use of insulin E11.9 ; Morbid obesity due to excess calories E66.01 ; Daytime sleepiness R40.0 and Pain in left knee M25.[address] [address] Dec, Controlled type 2 diabetes mellitus with out complication, without long-term current use of insulin E11.9 ; Morbid obesity due to excess calories E66.01 ; Daytime sleepiness R40.0 and Pain in left knee M25.[address] [address] Jun, Hypertension, benign I10 and Controlled type 2 diabetes mellitus without complication, without long-term current use of insulin E11.[address] [address] Jan, Uncontrolled type 2 diabetes mellitus wi out complication, without long-term current use of insulin E11.65 and Hypertension, benign I10 [facility] [address] [address] Jan, Pain in joint, ankle and foot 719.47 ; D iabetes mellitus without mention of complication, type II or unspecified type, not stated as uncontrolled 250.00 and Essential hypertension, benign 401.1 [facility] [address] [address] Jan, Pain in joint, ankle and foot 719.47 ; D iabetes mellitus without mention of complication, type II or unspecified type, not stated as uncontrolled 250.00 and Essential hypertension, benign 401.1 [facility] [address] [address] Oct, [facility] [address] [address] Oct, [facility] [address] [address] Aug, [facility] [address] [address] Aug, [facility] [address] [address] Aug, [facility] [address] [address] Aug, [facility] [address] [address] Jun, [facility] [address] [address] Jun, [facility] [address] [address] Jun, [facility] [address] [address] Jun, [facility] [address] [address] May, [facility] [address] [id number] [place] [address] May, [facility] [address] [facility] [id number] [place] [address] Dec, [facility] [address] [id number] [place] [address] Dec, [facility] [address] [id number] [place] [address] Dec, [facility] [address] [id number] [facility] [place] [address] Dec, [facility] [address] [id number] [place] [address] November, [facility] [address] [id number] [place] [address] November, [facility] [address] [id number] [place] [address] November, [facility] [address] [id number] [place] [address] November, [facility] [address] [id number] [place] [address] November, [facility] [address] [id number] [place] [address] November, [facility] [address] [id number] [place] [address] November, [facility] [address] [facility] [id number] [place] [address] November, [facility] [address] [id number] [place] [address] November, [facility] [address] [id number] [place] [address] November, [facility] [address] [id number] [place] [address] Oct, [facility] [address] [place] [id number] [place] [address] Oct, [facility] [address] [place] [id number] [place] [address] Oct, [facility] [address] [place] [id number] [place] [address] Aug, [facility] [address] [place] [id number] [place] [address] Aug, [facility] [address] [place] [id number] [place] [address] Jul, [facility] [address] [place] [id number] [place] [address] Jul, [facility] [address] [place] [id number] [place] [address] Jul, [facility] [address] [place] [id number] [place] [address] Jul, [facility] [address] [place] [id number] [place] [address] Jun, [facility] [address] [place] [id number] [place] [address] Jun, [facility] [address] [place] [id number] [place] [address] Jun, [facility] [address] [place] [id number] [place] [address] Jun, [facility] [address] [place] [id number] [place] [address] Jun, [facility] [address] [place] [id number] [place] [address] Jun, [facility] [address] [place] [id number] [place] [address] Jun, IMMUNIZATIONS No Known Immunizations SOCIAL HISTORY Never Assessed REASON FOR VISIT PLAN OF CARE VITAL SIGNS MEDICATIONS Unknown Medications RESULTS No Results PROCEDURES No Known procedures INSTRUCTIONS MEDICATIONS ADMINISTERED No Known Medications MEDICAL (GENERAL) HISTORY Type Description Date Medical History Hypertension Medical History Diabetes type 2 Medical History Hyperlipidemia Medical History testicular hypofuction Surgical History No Surgical history information Hospitalization History Arm fracture 1972
--- OUTSIDE RECORDS SUMMARY | 2019-10-06 05:47 | XMS REPORT ---
Author Author Benny PEÑALOZA Organization [facility] Address [address] [place] [address] Care Team Providers Care Malt Specifications Control Assistant Name Role Phone ANABELA GERMÁN Unavailable PROBLEMS Type Condition ICD9-CM Code NBC10-HR Code Onset Dates Condition S tatus SNOMED Code Problem Hypertension, benign I10 Active 89633587 Problem Type 2 diabetes mellitus without complications E11 .9 Active 137898489 Problem Primary insomnia F51.01 Active 397 2004 Problem Controlled type 2 diabetes m ellitus without complication, without long- term current use of insulin E11.9 Active 418557339 Problem Daytime sleepiness R40.0 Active 1 76658978777 Problem Morbid obesity due to excess calories E66.01 Active 507265629 Problem Hypertension, essential I10 Active 41429999 ALLERGIES No Information ENCOUNTERS Encounter Location Date Diagnosis [facility] [address] [place] [id number] [place] [address] Jan, [facility] [address] [facility] [id number] [address] [place] [address] Dec, [facility] [address] [place] [id number] [place] [address] Dec, Type 2 diabetes mellitus wit hout complications E11.9 ; Primary insomnia F51.01 and Morbid obesity E66.01 [facility] [address] [facility] [id number] [address] [place] [address] Oct, [facility] [address] [place] [id number] [place] [address] Oct, [facility] [address] [place] [id number] [place] [address] Oct, [facility] [address] [facility] [id number] [address] [place] [address] Aug, BMI 50.0-59.9, adult Z68.43 and Morbid obesity due to excess calories E66.01 [place] [address] [facility] [id number] [address] [place] [address] Jul, Morbid obesity due to excess calories E66.01 [place] [address] [facility] [id number] [address] [place] [address] Jun, Morbid obesity due to excess calories E66.01 [place] [address] [facility] [id number] [address] [place] [address] May, Type 2 diabetes mellitus wit hout complications E11.9 and Morbid obesity due to excess calories E66.01 [place] [address] [place] [id number] [place] [address] Apr, Type 2 diabetes mellitus wit hout complications E11.9 [place] [address] [place] [id number] [place] [address] Mar, Hypertension, benign I10 [place] [address] [facility] [id number] [address] [place] [address] 10 Mar, 2018 Localized edema R60.0 ; Cont rolled type 2 diabetes mellitus without complication, without long-term current use of insulin E11.9 and Morbid obesity due to excess calories E66.01 [place] [address] [place] [id number] [place] [address] Feb, Type 2 diabetes mellitus wit hout complications E11.9 and Edema of both legs R60.0 [place] [address] [facility] [id number] [address] [place] [address] Feb, Type 2 diabetes mellitus wit hout complications E11.9 and Edema of both legs R60.0 [place] [address] [facility] [id number] [address] [place] [address] Oct, Controlled type 2 diabetes m ellitus without complication, without long-term current use of insulin E11.9 and Localized edema R60.0 [place] [address] [place] [id number] [place] [address] Sep, Hypertension, essential I10 [place] [address] [id number] [address] [place] [address] Apr, Controlled type 2 diabetes m malik without complication, without long-term current use of insulin E11.9 [place] [address] [id number] [address] [place] [address] Feb, Morbid obesity due to excess calories E66.01 [place] [address] [id number] [address] [place] [address] Jan, Hypertension, essential I10 and Morbid obesity due to excess calories E66.01 [place] [address] [id number] [address] [place] [address] Dec, Controlled type 2 diabetes m malik without complication, without long-term current use of insulin E11.9 ; Morbid obesity due to excess calories E66.01 ; Daytime sleepiness R40.0 and Pain in left knee M25.562 [place] [address] [id number] [address] [place] [address] Dec, Controlled type 2 diabetes [place] gan without complication, without long-term current use of insulin E11.9 ; Morbid obesity due to excess calories E66.01 ; Daytime sleepiness R40.0 and Pain in left knee M25.562 [place] [address] [id number] [address] [place] [address] Jun, Hypertension, benign I10 and Controlled type 2 diabetes mellitus without complication, without long-term current use of insulin E11.9 [place] [address] [id number] [address] [place] [address] Jan, Uncontrolled type 2 diabetes mellitus without complication, without long-term current use of insulin E11.65 and Hypertension, benign I10 [place] [address] [id number] [address] [place] [address] Jan, Pain in joint, ankle and kaylee t 719.47 ; Diabetes mellitus without mention of complication, type II or unspecified type, not stated as uncontrolled 250.00 and Essential hypertension, benign 401.1 [facility] [address] [id number] [address] [place] [address] Jan, Pain in joint, ankle and kaylee t 719.47 ; Diabetes mellitus without mention of complication, type II or unspecified type, not stated as uncontrolled 250.00 and Essential hypertension, benign 401.1 [facility] [address] [id number] [address] [place] [address] Oct, [facility] [address] [id number] [address] [place] [address] Oct, [facility] [address] [id number] [address] [place] [address] Aug, [facility] [address] [id number] [address] [place] [address] Aug, [facility] [address] [id number] [address] [place] [address] Aug, [facility] [address] [id number] [address] [place] [address] Aug, [facility] [address] [id number] [address] [place] [address] Jun, [facility] [address] [id number] [address] [place] [address] Jun, [facility] [address] [id number] [address] [place] [address] Jun, [facility] [address] [id number] [address] [place] [address] Jun, [facility] [address] [id number] [address] [place] [address] May, [facility] [address] [id number] [address] [place] [address] May, [facility] [address] [id number] [address] [place] [address] Dec, [facility] [address] [id number] [address] [place] [address], [place] [address] Dec, [facility] [address] [id number] [address] [place] [address], [place] [address] Dec, [facility] [address] [id number] [address] [place] [address], [place] [address] Dec, [facility] [address] [id number] [address] [place] [address], [place] [address] November, [facility] [address] [id number] [address] [place] [address], [place] [address] November, [facility] [address] [id number] [address] [place] [address], [place] [address] November, [facility] [address] [id number] [address] [place] [address], [place] [address] November, [facility] [address] [id number] [address] [place] [address], [place] [address] November, [facility] [address] [id number] [address] [place] [address], [place] [address] November, [facility] [address] [id number] [address] [place] [address], [place] [address] November, [facility] [address] [id number] [address] [place] [address], [place] [address] November, [facility] [address] [id number] [address] [place] [address], [place] [address] November, [facility] [address] [id number] [address] [place] [address], [place] [address] November, [facility] [address] [id number] [address] [place] [address], [place] [address] Oct, [facility] [address] [id number] [address] [place] [address], [place] [address] Oct, [facility] [address] [id number] [address] [place] [address] Oct, [facility] [address] [id number] [address] [place] [address] Aug, [facility] [address] [id number] [address] [place] [address] Aug, [facility] [address] [id number] [address] [place] [address] Jul, [facility] [address] [id number] [address] [place] [address] Jul, [facility] [address] [id number] [address] [place] [address] Jul, [facility] [address] [id number] [address] [place] [address] Jul, [facility] [address] [id number] [address] [place] [address] Jun, [facility] [address] [id number] [address] [place] [address] Jun, [facility] [address] [id number] [address] [place] [address] Jun, [facility] [address] [id number] [address] [place] [address] Jun, [facility] [address] [id number] [address] [place] [address] Jun, [facility] [address] [id number] [address] [place] [address] Jun, [facility] [address] [id number] [address] [place] [address] Jun, IMMUNIZATIONS No Known Immunizations SOCIAL HISTORY [...]
--- OUTSIDE RECORDS SUMMARY | 2019-10-06 05:47 | XMS REPORT ---
Author Author Benny PEÑALOZA Organization [facility] Address [address] [place] [address] Care Team Providers Care [employer] Instructor Name Role Phone ANABELA GERMÁN Unavailable PROBLEMS Type Condition ICD9-CM Code SUP38-UE Code Onset Dates Condition S tatus SNOMED Code Problem Hypertension, benign I10 Active 22428975 Problem Type 2 diabetes mellitus without complications E11 .9 Active 161046927 Problem Primary insomnia F51.01 Active 397 2004 Problem Controlled type 2 diabetes m ellitus without complication, without long- term current use of insulin E11.9 Active 526100320 Problem Daytime sleepiness R40.0 Active 1 02472078490 Problem Morbid obesity due to excess calories E66.01 Active 608281155 Problem Hypertension, essential I10 Active 82894812 ALLERGIES No Information ENCOUNTERS Encounter Location Date Diagnosis [facility] [address] [place] [id number] [address] [place] [address] Jan, [facility] [address] [facility] [id number] [address] [place] [address] Dec, [facility] [address] [id number] [address] [place] [address] Dec, Type 2 diabetes mellitus wit hout complications E11.9 ; Primary insomnia F51.01 and Morbid obesity E66.01 [facility] [address] [facility] [id number] [address] [place] [address] Oct, [facility] [address] [id number] [address] [place] [address] Oct, [facility] [address] [id number] [address] [place] [address] Oct, [facility] [address] [facility] [id number] [address] [place] [address] Aug, BMI 50.0-59.9, adult Z68.43 and Morbid obesity due to excess calories E66.01 [place] [address] [facility] [id number] [address] [place] [address] Jul, Morbid obesity due to excess calories E66.01 [place] [address] [facility] [id number] [address] [place] [address] Jun, Morbid obesity due to excess calories E66.01 [place] [address] [facility] [id number] [address] [place] [address] May, Type 2 diabetes mellitus wit hout complications E11.9 and Morbid obesity due to excess calories E66.01 [place] [address] [id number] [address] [place] [address] Apr, Type 2 diabetes mellitus wit hout complications E11.9 [place] [address] [id number] [address] [place] [address] Mar, Hypertension, benign I10 [place] [address] [facility] [id number] [address] [place] [address] 10 Mar, 2018 Localized edema R60.0 ; Cont rolled type 2 diabetes mellitus without complication, without long-term current use of insulin E11.9 and Morbid obesity due to excess calories E66.01 [place] [address] [place] [id number] [address] [place] [address] Feb, Type 2 diabetes mellitus wit hout complications E11.9 and Edema of both legs R60.0 [place] [address] [facility] [id number] [address] [place] [address] Feb, Type 2 diabetes mellitus wit hout complications E11.9 and Edema of both legs R60.0 [place] [address] [facility] [id number] [address] [place] [address] Oct, Controlled type 2 diabetes m ellitus without complication, without long-term current use of insulin E11.9 and Localized edema R60.0 [place] [address] [place] [id number] [address] [place] [address] Sep, Hypertension, essential I10 [place] [address] [id number] [address] [place] [address] Apr, Controlled type 2 diabetes m malik without complication, without long-term current use of insulin E11.9 [place] [address] [id number] [address] [place] [address] Feb, Morbid obesity due to excess calories E66.01 [place] [address] [id number] [address] [place] [phone] Jan, Hypertension, essential I10 and Morbid obesity due to excess calories E66.01 [place] [address] [id number] [address] [place] [address] Dec, Controlled type 2 diabetes m malik without complication, without long-term current use of insulin E11.9 ; Morbid obesity due to excess calories E66.01 ; Daytime sleepiness R40.0 and Pain in left knee M25.562 [place] [address] [id number] [address] [place] [address] Dec, Controlled type 2 diabetes [place] [address] without complication, without long-term current use of insulin E11.9 ; Morbid obesity due to excess calories E66.01 ; Daytime sleepiness R40.0 and Pain in left knee M25.562 [place] [address] [id number] [address] [place] [address] Jun, Hypertension, benign I10 and Controlled type 2 diabetes mellitus without complication, without long-term current use of insulin E11.9 [place] [address] [id number] [address] [place] [address] Jan, Uncontrolled type 2 diabetes mellitus without complication, without long-term current use of insulin E11.65 and Hypertension, benign I10 [place] [address] [id number] [address] [place] [address] Jan, Pain in joint, ankle and kaylee t 719.47 ; Diabetes mellitus without mention of complication, type II or unspecified type, not stated as uncontrolled 250.00 and Essential hypertension, benign 401.1 [facility] [address] [id number] [address] [place] [address] Jan, Pain in joint, ankle and kaylee t 719.47 ; Diabetes mellitus without mention of complication, type II or unspecified type, not stated as uncontrolled 250.00 and Essential hypertension, benign 401.1 [facility] [address] [id number] [address] [place] [address] Oct, [facility] [address] [id number] [address] [place] [address] Oct, [facility] [address] [id number] [address] [place] [address] Aug, [facility] [address] [id number] [address] [place] [address] Aug, [facility] [address] [id number] [address] [place] [address] Aug, [facility] [address] [id number] [address] [place] [address] Aug, [facility] [address] [id number] [address] [place] [address] Jun, [facility] [address] [id number] [address] [place] [address] Jun, [facility] [address] [id number] [address] [place] [address] Jun, [facility] [address] [id number] [address] [place] [address] Jun, [facility] [address] [id number] [address] [place] [address] May, [facility] [address] [id number] [address] [place] [address] May, [facility] [address] [id number] [address] [place] [address] Dec, [facility] [address] [id number] [address] [place] [address], [place] [address] Dec, [facility] [address] [id number] [address] [place] [address], [place] [address] Dec, [facility] [address] [id number] [address] [place] [address], [place] [address] Dec, [facility] [address] [id number] [address] [place] [address], [place] [address] November, [facility] [address] [id number] [address] [place] [address], [place] [address] November, [facility] [address] [id number] [address] [place] [address], [place] [address] November, [facility] [address] [id number] [address] [place] [address], [place] [address] November, [facility] [address] [id number] [address] [place] [address], [place] [address] November, [facility] [address] [id number] [address] [place] [address], [place] [address] November, [facility] [address] [id number] [address] [place] [address], [place] [address] November, [facility] [address] [id number] [address] [place] [address], [place] [address] November, [facility] [address] [id number] [address] [place] [address], [place] [address] November, [facility] [address] [id number] [address] [place] [address], [place] [address] November, [facility] [address] [id number] [address] [place] [address], [place] [address] Oct, [facility] [address] [id number] [address] [place] [address], [place] [address] Oct, [facility] [address] [id number] [address] [place] [address] Oct, [facility] [address] [id number] [address] [place] [address] Aug, [facility] [address] [id number] [address] [place] [address] Aug, [facility] [address] [id number] [address] [place] [address] Jul, [facility] [address] [id number] [address] [place] [address] Jul, [facility] [address] [id number] [address] [place] [address] Jul, [facility] [address] [id number] [address] [place] [address] Jul, [facility] [address] [id number] [address] [place] [address] Jun, [facility] [address] [id number] [address] [place] [address] Jun, [facility] [address] [id number] [address] [place] [address] Jun, [facility] [address] [id number] [address] [place] [address] Jun, [facility] [address] [id number] [address] [place] [address] Jun, [facility] [address] [id number] [address] [place] [address] Jun, [facility] [address] [id number] [address] [place] [address] Jun, IMMUNIZATIONS No Known Immunizations SOCIAL HISTORY [...]
--- OUTSIDE RECORDS SUMMARY | 2019-10-06 05:47 | XMS REPORT ---
Author Author Benny Cerda Doctor Organization [facility] Address Unknown Phone Unavailable Care Team Providers Care Real Estate Underwriter Name Role Phone Migration, Doctor Unavailable Unavailable PROBLEMS Type Condition ICD9-CM Code FBK87-FU Code Onset Dates Condition S tatus SNOMED Code Problem Hypertension, essential I10 Active 04838454 Problem Type 2 diabetes mellitus without complications E11 .9 Active 917654389 Problem Hypertension, benign I10 Active 61835108 Problem Controlled type 2 diabetes m ellitus without complication, without long- term current use of insulin E11.9 Active 707604670 Problem Daytime sleepiness R40.0 Active 1 14215857267 Problem Morbid obesity due to excess calories E66.01 Active 743459222 ALLERGIES No Information ENCOUNTERS Encounter Location Date Diagnosis [facility] [address] [facility] [id number] [address] [place] [address] Dec, [facility] [address] [facility] [id number] [address] [place] [address] Oct, [facility] [address] [facility] [id number] [address] [place] [address] Oct, [facility] [address] [facility] [id number] [address] [place] [address] Oct, [facility] [address] [facility] [id number] [address] [place] [address] Aug, BMI 50.0-59.9, adult Z68.43 and Morbid obesity due to excess calories E66.01 [facility] [address] [facility] [id number] [address] [place] [address] Jul, Morbid obesity due to excess calories E66.01 [facility] [address] [facility] [id number] [address] [place] [address] Jun, Morbid obesity due to excess calories E66.01 [facility] [address] [id number] [address] [place] [address] May, Type 2 diabetes mellitus wit hout complications E11.9 and Morbid obesity due to excess calories E66.01 [facility] [address] [id number] [address] [place] [address] 08 Apr, 2018 Type 2 diabetes mellitus wit hout complications E11.9 [facility] [address] [id number] [address] [place] [address] Mar, Hypertension, benign I10 [facility] [address] [id number] [address] [place] [address] Mar, Localized edema R60.0 ; Cont rolled type 2 diabetes mellitus without complication, without long-term current use of insulin E11.9 and Morbid obesity due to excess calories E66.01 [facility] [address] [facility] [id number] [address] [place] [address] Feb, Type 2 diabetes mellitus wit hout complications E11.9 and Edema of both legs R60.0 [facility] [address] [id number] [address] [place] [address] Feb, Type 2 diabetes mellitus wit hout complications E11.9 and Edema of both legs R60.0 [facility] [address] [id number] [address] [place] [address] Oct, Controlled type 2 diabetes m ellitus without complication, without long-term current use of insulin E11.9 and Localized edema R60.0 [facility] [address] [id number] [address] [place] [phone] Sep, Hypertension, essential I10 [facility] [address] [id number] [address] [place] [address] Apr, Controlled type 2 diabetes m ellitus without complication, without long-term current use of insulin E11.9 [facility] [address] [id number] [address] [place] [address] Feb, Morbid obesity due to excess calories E66.01 [facility] [address] [id number] [address] [place] [address] Jan, Hypertension, essential I10 and Morbid obesity due to excess calories E66.01 [place] [address] [facility] [id number] [address] [place] [address] Dec, Controlled type 2 diabetes m malik without complication, without long-term current use of insulin E11.9 ; Morbid obesity due to excess calories E66.01 ; Daytime sleepiness R40.0 and Pain in left knee M25.562 [place] [address] [facility] [id number] [address] [place] [address] Dec, Controlled type 2 diabetes m malik without complication, without long-term current use of insulin E11.9 ; Morbid obesity due to excess calories E66.01 ; Daytime sleepiness R40.0 and Pain in left knee M25.562 [place] [address] [place] [id number] [address] [place] [address] Jun, Hypertension, benign I10 and Controlled type 2 diabetes mellitus without complication, without long-term current use of insulin E11.9 [place] [address] [facility] [id number] [address] [place] [address] Jan, Uncontrolled type 2 diabetes mellitus without complication, without long-term current use of insulin E11.65 and Hypertension, benign I10 [place] [id number] [place] [address] Jan, Pain in joint, ankle and kaylee t 719.47 ; Diabetes mellitus without mention of complication, type II or unspecified type, not stated as uncontrolled 250.00 and Essential hypertension, benign 401.1 [place] [address] [facility] [id number] [address] [place] [address] Jan, Pain in joint, ankle and kaylee t 719.47 ; Diabetes mellitus without mention of complication, type II or unspecified type, not stated as uncontrolled 250.00 and Essential hypertension, benign 401.1 [place] [address] [place] [id number] [address] [place] [address] Oct, [facility] [address] [id number] [address] [place] [address], [place] [address] Oct, [facility] [address] [id number] [address] [place] [address], [place] [address] Aug, 2014 [facility] [address] [id number] [address] [place] [address], [place] [address] Aug, 2014 [facility] [address] [id number] [address] [place] [address], [place] [address] Aug, 2014 [facility] [address] [id number] [address] [place] [address], [place] [address] Aug, 2014 [facility] [address] [id number] [address] [place] [address], [place] [address] Jun, [facility] [address] [id number] [address] [place] [address], [place] [address] Jun, [facility] [address] [id number] [address] [place] [address], [place] [address] Jun, [facility] [address] [id number] [address] [place] [address], [place] [address] Jun, [facility] [address] [id number] [address] [place] [address], [place] [address] May, [facility] [address] [id number] [address] [place] [address], [place] [address] May, [facility] [address] [id number] [address] [place] [address], [place] [address] Dec, [facility] [address] [id number] [address] [place] [address], [place] [address] Dec, [facility] [address] [id number] [address] [place] [address], [place] [address] Dec, [facility] [address] [id number] [address] [place] [address], [place] [address] Dec, [facility] [address] [id number] [address] [place] [address], [place] [address] November, [facility] [address] [id number] [address] [place] [address], [place] [address] November, [facility] [address] [id number] [address] [place] [address], [place] [address] November, [facility] [address] [id number] [address] [place] [address], [place] [address] November, [facility] [address] [id number] [address] [place] [address], [place] [address] November, [facility] [address] [id number] [address] [place] [address], [place] [address] November, [facility] [address] [id number] [address] [place] [address], [place] [address] November, [facility] [address] [id number] [address] [place] [address], [place] [address] November, [facility] [address] [id number] [address] [place] [address], [place] [address] November, [facility] [address] [id number] [address] [place] [address], [place] [address] November, [facility] [address] [id number] [address] [place] [address], [place] [address] Oct, [facility] [address] [id number] [address] [place] [address], [place] [address] Oct, [facility] [address] [id number] [address] [place] [address], [place] [address] Oct, [facility] [address] [id number] [address] [place] [address], [place] [address] Aug, [facility] [address] [id number] [address] [place] [address], [place] [address] Aug, [facility] [address] [id number] [address] [place] [address], [place] [address] Jul, [facility] [address] [id number] [address] [place] [address] Jul, [facility] [address] [id number] [address] [place] [address] Jul, [facility] [address] [id number] [address] [place] [address] Jul, [facility] [address] [id number] [address] [place] [address] Jun, [facility] [address] [id number] [address] [place] [address] Jun, [facility] [address] [id number] [address] [place] [address] Jun, [facility] [address] [id number] [address] [place] [address] Jun, [facility] [address] [id number] [address] [place] [address] Jun, [facility] [address] [id number] [address] [place] [address] Jun, [facility] [address] [id number] [address] [place] [phone] Jun, IMMUNIZATIONS No Known Immunizations SOCIAL HISTORY Never Assessed REASON FOR VISIT EMR-[facility] [place] PLAN OF CARE VITAL SIGNS MEDICATIONS Unknown Medications RESULTS No Results PROCEDURES No Known procedures INSTRUCTIONS MEDICATIONS ADMINISTERED No Known Medications MEDICAL (GENERAL) HISTORY Type Description Date Medical History Hypertension Medical History Diabetes type 2 Medical History Hyperlipidemia Medical History testicular hypofuction Surgical History No know Surgical history Hospitalization History Arm fracture 1972
--- OUTSIDE RECORDS SUMMARY | 2019-10-06 05:47 | XMS REPORT ---
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 372306130027 7 Problem Daytime sleepiness R40.0 Active 1 84635859782 Problem Morbid obesity due to excess calories E66.01 Active 285321494 Problem Hypertension, essential I10 Active 02138572 Problem Type 2 diabetes mellitus without complications E11 .9 Active 315044560 ALLERGIES No Information ENCOUNTERS Encounter Location Date Diagnosis [place] [address] [address] Jul, Coronary artery disease of [place] artery of [place] heart with stable angina pectoris I25.118 ; Family history of colon cancer Z80.0 and Colon cancer screening Z12.11 [place] [address] [address] May, [place] [address] [address] May, Controlled type 2 diabetes mellitus with out complication, without long-term current use of insulin E11.9 [place] [address] [address] May, Controlled type 2 diabetes mellitus with out complication, without long-term current use of insulin E11.9 and Hypertension, benign I10 [place] [address] [address] Jan, [facility] [address] [address] Dec, [place] [address] [address] Dec, Type 2 diabetes mellitus without complic ations E11.9 ; Primary insomnia F51.01 and Morbid obesity E66.01 [place] [address] [address] Oct, [place] [address] [address] Oct, [place] [address] [address] Oct, [place] [address] [address] Aug, BMI 50.0-59.9, adult Z68.43 and Morbid o besity due to excess calories E66.01 [place] [address] [address] Jul, Morbid obesity due to excess calories E6 6.01 [place] [address] [address] Jun, Morbid obesity due to excess calories E6 6.01 [place] [address] [address] May, Type 2 diabetes mellitus without complic ations E11.9 and Morbid obesity due to excess calories E66.01 [place] [address] [address] Apr, Type 2 diabetes mellitus without complic ations E11.9 [place] [address] [address] Mar, Hypertension, benign I10 [place] [address] [address] Mar, Localized edema R60.0 ; Controlled type 2 diabetes mellitus without complication, without long-term current use of insulin E11.9 and Morbid obesity due to excess calories E66.01 [place] [address] [address] Feb, Type 2 diabetes mellitus without complic ations E11.9 and Edema of both legs R60.0 [place] [address] [address] Feb, Type 2 diabetes mellitus without complic ations E11.9 and Edema of both legs R60.0 [place] [address] [address] Oct, Controlled type 2 diabetes mellitus with out complication, without long-term current use of insulin E11.9 and Localized edema R60.0 [place] [address] [address] Sep, Hypertension, essential I10 [place] [address] [address] Apr, Controlled type 2 diabetes mellitus with out complication, without long-term current use of insulin E11.9 [place] [address] [address] Feb, Morbid obesity due to excess calories E6 6.01 [place] [address] [address] Jan, Hypertension, essential I10 and Morbid o besity due to excess calories E66.01 [place] [address] [address] Dec, Controlled type 2 diabetes mellitus with out complication, without long-term current use of insulin E11.9 ; Morbid obesity due to excess calories E66.01 ; Daytime sleepiness R40.0 and Pain in left knee M25.562 [place] [address] [address] Dec, Controlled type 2 diabetes mellitus with out complication, without long-term current use of insulin E11.9 ; Morbid obesity due to excess calories E66.01 ; Daytime sleepiness R40.0 and Pain in left knee M25.562 [facility] [address] [address] Jun, Hypertension, benign I10 and Controlled type 2 diabetes mellitus without complication, without long-term current use of insulin E11.9 [facility] [address] [address] Jan, Uncontrolled type 2 diabetes mellitus wi thout complication, without long-term current use of insulin E11.65 and Hypertension, benign I10 [facility] [address] [address] Jan, Pain in joint, ankle and foot 719.47 ; D iabetes mellitus without mention of complication, type II or unspecified type, not stated as uncontrolled 250.00 and Essential hypertension, benign 401.1 [place] [address] [address] Jan, Pain in joint, ankle and foot 719.47 ; D iabetes mellitus without mention of complication, type II or unspecified type, not stated as uncontrolled 250.00 and Essential hypertension, benign 401.1 [facility] [address] [address] Oct, [facility] [address] [address] Oct, [facility] [address] [address] Aug, [facility] [address] [address] Aug, [facility] [address] [address] Aug, [facility] [address] [address] Aug, [facility] [address] [address] Jun, [facility] [address] [address] Jun, [facility] [address] [facility] [id number] [place] [address] Jun, [facility] [address] [facility] [id number] [place] [address] Jun, [facility] [address] [id number] [place] [address] May, [facility] [address] [id number] [place] [address] May, [facility] [address] [id number] [place] [address] Dec, [facility] [address] [id number] [place] [address] Dec, [facility] [address] [id number] [place] [address] Dec, [facility] [address] [id number] [place] [address] Dec, [facility] [address] [id number] [place] [address] November, [facility] [address] [id number] [place] [address] November, [facility] [address] [id number] [place] [address] November, [facility] [address] [id number] [place] [address] November, [facility] [address] [id number] [place] [address] November, [facility] [address] [id number] [place] [address] November, [facility] [address] [id number] [place] [address] November, [facility] [address] [id number] [place] [address] November, [facility] [address] [id number] [place] [address] November, [facility] [address] [id number] [place] [address] November, [facility] [address] [id number] [place] [address] Oct, [facility] [address] [id number] [place] [address] Oct, [facility] [address] [id number] [place] [address] Oct, [facility] [address] [id number] [place] [address] Aug, [facility] [address] [id number] [place] [address] Aug, [facility] [address] [id number] [place] [address] Jul, [facility] [address] [id number] [place] [address] Jul, [facility] [address] [id number] [place] [address] Jul, [facility] [address] [id number] [place] [address] Jul, [facility] [address] [id number] [place] [address] Jun, [facility] [address] [id number] [place] [address] Jun, [facility] [address] [id number] [place] [address] Jun, [facility] [address] [place] [id number] [place] [address] Jun, [facility] [address] [id number] [place] [address] Jun, [facility] [address] [id number] [place] [address] Jun, [facility] [place] [address] [facility] [id number] [place] [address] Jun, IMMUNIZATIONS No Known Immunizations SOCIAL HISTORY Never Assessed REASON FOR VISIT PLAN OF CARE VITAL SIGNS Height 73 in 2013-10-29 Weight 442.1 lbs 2013-10-29 Temperature 97.1 degrees Fahrenheit 2013-10-29 Heart Rate 84 bpm 2013-10-29 Respiratory Rate 20 2013-10-29 Blood pressure systolic 182 mmHg 2013-10-29 Blood pressure diastolic 100 mmHg 2013-10-29 MEDICATIONS No Known Medications RESULTS No Results PROCEDURES Procedure Date Ordered Result Body Site THER/PROPH/DIAG INJ, SC/IM October 29, 2013 ASSAY OF TOTAL TESTOSTERONE October 29, 2013 INSTRUCTIONS MEDICATIONS ADMINISTERED No Known Medications MEDICAL (GENERAL) HISTORY Type Description Date Medical History Hypertension Medical History Diabetes type 2 Medical History Hyperlipidemia Medical History testicular hypofuction Surgical History heart stent 07/2019 Hospitalization History Arm fracture 1972
--- OUTSIDE RECORDS SUMMARY | 2019-10-06 05:47 | XMS REPORT ---
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 stable angina pectoris I25.118 Active 286050958847 7 Problem Daytime sleepiness R40.0 Active 1 53366563706 Problem Morbid obesity due to excess calories E66.01 Active 481953696 Problem Hypertension, essential I10 Active 73711787 Problem Type 2 diabetes mellitus without complications E11 .9 Active 141475336 ALLERGIES No Information ENCOUNTERS Encounter Location Date Diagnosis [place] [address] [address] Jul, Coronary artery disease of eek artery of eek heart with stable angina pectoris I25.118 ; Family history of colon cancer Z80.0 and Colon cancer screening Z12.11 [place] [address] [address] May, [place] [address] [address] May, Controlled type 2 diabetes mellitus with out complication, without long-term current use of insulin E11.9 [place] [address] [address] May, Controlled type 2 diabetes mellitus with out complication, without long-term current use of insulin E11.9 and Hypertension, benign I10 [place] [address] [address] Jan, [facility] [address] [address] Dec, [place] [address] [address] Dec, Type 2 diabetes mellitus without complic ations E11.9 ; Primary insomnia F51.01 and Morbid obesity E66.01 [place] [address] [address] Oct, [place] [address] [address] Oct, [place] [address] [address] Oct, [place] [address] [address] Aug, BMI 50.0-59.9, adult Z68.43 and Morbid o besity due to excess calories E66.01 [place] [address] [address] Jul, Morbid obesity due to excess calories E6 6.01 [place] [address] [address] Jun, Morbid obesity due to excess calories E6 6.01 [place] [address] [address] May, Type 2 diabetes mellitus without complic ations E11.9 and Morbid obesity due to excess calories E66.01 [place] [address] [address] Apr, Type 2 diabetes mellitus without complic ations E11.9 [place] [address] [address] Mar, Hypertension, benign I10 [place] [address] [address] Mar, Localized edema R60.0 ; Controlled type 2 diabetes mellitus without complication, without long-term current use of insulin E11.9 and Morbid obesity due to excess calories E66.01 [place] [address] [address] Feb, Type 2 diabetes mellitus without complic ations E11.9 and Edema of both legs R60.0 [place] [address] [address] Feb, Type 2 diabetes mellitus without complic ations E11.9 and Edema of both legs R60.0 [place] [address] [address] Oct, Controlled type 2 diabetes mellitus with out complication, without long-term current use of insulin E11.9 and Localized edema R60.0 [place] [address] [address] Sep, Hypertension, essential I10 [place] [address] [address] Apr, Controlled type 2 diabetes mellitus with out complication, without long-term current use of insulin E11.9 [place] [address] [address] Feb, Morbid obesity due to excess calories E6 6.01 [place] [address] [address] Jan, Hypertension, essential I10 and Morbid o besity due to excess calories E66.01 [place] [address] [address] Dec, Controlled type 2 diabetes mellitus with out complication, without long-term current use of insulin E11.9 ; Morbid obesity due to excess calories E66.01 ; Daytime sleepiness R40.0 and Pain in left knee M25.562 [place] [address] [address] Dec, Controlled type 2 diabetes mellitus with out complication, without long-term current use of insulin E11.9 ; Morbid obesity due to excess calories E66.01 ; Daytime sleepiness R40.0 and Pain in left knee M25.562 [facility] [address] [address] Jun, Hypertension, benign I10 and Controlled type 2 diabetes mellitus without complication, without long-term current use of insulin E11.9 [facility] [address] [address] Jan, Uncontrolled type 2 diabetes mellitus wi thout complication, without long-term current use of insulin E11.65 and Hypertension, benign I10 [facility] [address] [address] Jan, Pain in joint, ankle and foot 719.47 ; D iabetes mellitus without mention of complication, type II or unspecified type, not stated as uncontrolled 250.00 and Essential hypertension, benign 401.1 [place] [address] [address] Jan, Pain in joint, ankle and foot 719.47 ; D iabetes mellitus without mention of complication, type II or unspecified type, not stated as uncontrolled 250.00 and Essential hypertension, benign 401.1 [facility] [address] [address] Oct, [facility] [address] [address] Oct, [facility] [address] [address] Aug, [facility] [address] [address] Aug, [facility] [address] [address] Aug, [facility] [address] [address] Aug, [facility] [address] [address] Jun, [facility] [address] [address] Jun, [facility] [address] [facility] [id number] [place] [address] Jun, [facility] [address] [facility] [id number] [place] [address] Jun, [facility] [address] [id number] [place] [address] May, [facility] [address] [id number] [place] [address] May, [facility] [address] [id number] [place] [address] Dec, [facility] [address] [id number] [place] [address] Dec, [facility] [address] [id number] [place] [address] Dec, [facility] [address] [id number] [place] [address] Dec, [facility] [address] [id number] [place] [address] November, [facility] [address] [id number] [place] [address] November, [facility] [address] [id number] [place] [address] November, [facility] [address] [id number] [place] [address] November, [facility] [address] [id number] [place] [address] November, [facility] [address] [id number] [place] [address] November, [facility] [address] [id number] [place] [address] November, [facility] [address] [id number] [place] [address] November, [facility] [address] [id number] [place] [address] November, [facility] [address] [id number] [place] [address] November, [facility] [address] [id number] [place] [address] Oct, [facility] [address] [id number] [place] [address] Oct, [facility] [address] [id number] [place] [address] Oct, [facility] [address] [id number] [place] [address] Aug, [facility] [address] [id number] [place] [address] Aug, [facility] [address] [id number] [place] [address] Jul, [facility] [address] [id number] [place] [address] Jul, [facility] [address] [id number] [place] [address] Jul, [facility] [address] [id number] [place] [address] Jul, [facility] [address] [id number] [place] [address] Jun, [facility] [address] [id number] [place] [address] Jun, [facility] [address] [id number] [place] [address] Jun, [facility] [address] [place] [id number] [place] [address] Jun, [facility] [address] [id number] [place] [address] Jun, [facility] [address] [id number] [place] [address] Jun, [facility] [address] [facility] [id number] [place] [address] Jun, IMMUNIZATIONS No Known Immunizations SOCIAL HISTORY [...]
--- OUTSIDE RECORDS SUMMARY | 2019-10-06 05:47 | XMS REPORT ---
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 Name Role Phone ANABELA GERMÁN Unavailable PROBLEMS Type Condition ICD9-CM Code VEN12-OH Code Onset Dates Condition S tatus SNOMED Code Problem Hypertension, benign I10 Active 06995146 Problem Type 2 diabetes mellitus without complications E11 .9 Active 569853374 Problem Primary insomnia F51.01 Active 397 2004 Problem Controlled type 2 diabetes m ellitus without complication, without long- term current use of insulin E11.9 Active 546151812 Problem Daytime sleepiness R40.0 Active 1 92665829139 Problem Morbid obesity due to excess calories E66.01 Active 485897755 Problem Hypertension, essential I10 Active 27842471 ALLERGIES No Information ENCOUNTERS Encounter Location Date Diagnosis [place] [address] [address] [place] [id number] [address] [place] [address] Dec, [place] [address] [address] [place] [id number] [address] [place] [address] Dec, Type 2 diabetes mellitus wit hout complications E11.9 ; Primary insomnia F51.01 and Morbid obesity E66.01 [facility] [id number] [place] [address] Oct, [facility] [address] [place] [id number] [address] [place] [address] Oct, [facility] [address] [place] [id number] [address] [place] [address] Oct, [place] [address] [place] [id number] [address] [place] [address] Aug, BMI 50.0-59.9, adult Z68.43 and Morbid obesity due to excess calories E66.01 [place] [address] [id number] [address] [place] [address] Jul, Morbid obesity due to excess calories E66.01 [facility] [address] [id number] [address] [place] [address] Jun, Morbid obesity due to excess calories E66.01 [facility] [address] [id number] [address] [place] [address] May, Type 2 diabetes mellitus wit hout complications E11.9 and Morbid obesity due to excess calories E66.01 [facility] [address] [id number] [address] [place] [address] Apr, Type 2 diabetes mellitus wit hout complications E11.9 [place] [address] [facility] [id number] [address] [place] [address] Mar, Hypertension, benign I10 [place] [address] [facility] [id number] [address] [place] [address] Mar, Localized edema R60.0 ; Cont rolled type 2 diabetes mellitus without complication, without long-term current use of insulin E11.9 and Morbid obesity due to excess calories E66.01 [place] [address] [id number] [address] [place] [address] Feb, Type 2 diabetes mellitus wit hout complications E11.9 and Edema of both legs R60.0 [place] [address] N [facility] [id number] [address] [place] [address] Feb, Type 2 diabetes mellitus wit hout complications E11.9 and Edema of both legs R60.0 [facility] [address] [id number] [address] [place] [address] Oct, Controlled type 2 diabetes m ellitus without complication, without long-term current use of insulin E11.9 and Localized edema R60.0 [facility] [address] [facility] [id number] [address] [place] [address] Sep, Hypertension, essential I10 [facility] [address] [facility] [id number] [address] [place] [address] Apr, Controlled type 2 diabetes m malik without complication, without long-term current use of insulin E11.9 [place] [address] [address] [place] [id number] [address] [place] [address] Feb, Morbid obesity due to excess calories E66.01 [place] [address] [place] [id number] [address] [place] [address] Jan, Hypertension, essential I10 and Morbid obesity due to excess calories E66.01 [place] [address] [address] [facility] [id number] [address] [place] [address] Dec, Controlled type 2 diabetes m malik without complication, without long-term current use of insulin E11.9 ; Morbid obesity due to excess calories E66.01 ; Daytime sleepiness R40.0 and Pain in left knee M25.562 [place] [address] [place] [address] Dec, Controlled type 2 diabetes m malik without complication, without long-term current use of insulin E11.9 ; Morbid obesity due to excess calories E66.01 ; Daytime sleepiness R40.0 and Pain in left knee M25.562 [place] [address] [address] Jun, Hypertension, benign I10 and Controlled type 2 diabetes mellitus without complication, without long-term current use of insulin E11.9 [place] [address] [place] [id number] [address] [place] [address] Jan, Uncontrolled type 2 diabetes mellitus without complication, without long-term current use of insulin E11.65 and Hypertension, benign I10 [place] [address] [place] [id number] [address] [place] [address] Jan, Pain in joint, ankle and kaylee t 719.47 ; Diabetes mellitus without mention of complication, type II or unspecified type, not stated as uncontrolled 250.00 and Essential hypertension, benign 401.1 [place] [address] [place] [id number] [place] [address] Jan, Pain in joint, ankle and kaylee t 719.47 ; Diabetes mellitus without mention of complication, type II or unspecified type, not stated as uncontrolled 250.00 and Essential hypertension, benign 401.1 [facility] [address] [id number] [address] [place] [address] Oct, [facility] [address] [id number] [address] [place] [address] Oct, [facility] [address] [id number] [address] [place] [address] Aug, [facility] [address] [id number] [address] [place] [address] Aug, [facility] [address] [id number] [address] [place] [address] Aug, [facility] [address] [id number] [address] [place] [address] Aug, [facility] [address] [id number] [address] [place] [address] Jun, [facility] [address] [id number] [address] [place] [address] Jun, [facility] [address] [id number] [address] [place] [address] Jun, [facility] [address] [id number] [address] [place] [address] Jun, [facility] [address] [id number] [address] [place] [address] May, [facility] [address] [id number] [address] [place] [address] May, [facility] [address] [id number] [address] [place] [address] Dec, [facility] [address] [id number] [address] [place] [address] Dec, [facility] [address] [id number] [address] [place] [address], [place] [address] Dec, [facility] [address] [id number] [address] [place] [address], [place] [address] Dec, [facility] [address] [id number] [address] [place] [address], [place] [address] November, [facility] [address] [id number] [address] [place] [address], [place] [address] November, [facility] [address] [id number] [address] [place] [address], [place] [address] November, [facility] [address] [id number] [address] [place] [address], [place] [address] November, [facility] [address] [id number] [address] [place] [address], [place] [address] November, [facility] [address] [id number] [address] [place] [address], [place] [address] November, [facility] [address] [id number] [address] [place] [address], [place] [address] November, [facility] [address] [id number] [address] [place] [address], [place] [address] November, [facility] [address] [id number] [address] [place] [address], [place] [address] November, [facility] [address] [id number] [address] [place] [address], [place] [address] November, [facility] [address] [id number] [address] [place] [address], [place] [address] Oct, [facility] [address] [id number] [address] [place] [address], [place] [address] Oct, [facility] [address] [id number] [address] [place] [address], [place] [address] Oct, [facility] [address] [id number] [address] [place] [address] Aug, [facility] [address] [id number] [address] [place] [address] Aug, [facility] [address] [id number] [address] [place] [address] Jul, [facility] [address] [id number] [address] [place] [address] Jul, [facility] [address] [id number] [address] [place] [address] Jul, [facility] [address] [id number] [address] [place] [address] Jul, [facility] [address] [id number] [address] [place] [address] Jun, [facility] [address] [id number] [address] [place] [address] Jun, [facility] [address] [id number] [address] [place] [address] Jun, [facility] [address] [id number] [address] [place] [address] Jun, [facility] [address] [id number] [address] [place] [address] Jun, [facility] [address] [id number] [address] [place] [address] Jun, [facility] [address] [id number] [address] [place] [address] Jun, IMMUNIZATIONS No Known Immunizations SOCIAL HISTORY [...]
--- OUTSIDE RECORDS SUMMARY | 2019-10-06 05:48 | XMS REPORT ---
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 Name Role Phone ANABELA GERMÁN Unavailable PROBLEMS Type Condition ICD9-CM Code DCU53-[place] Code Onset Dates Condition S tatus SNOMED Code Problem Hypertension, essential I10 Active 33579999 Problem Morbid obesity due to excess calories E66.01 Active 299649382 Problem Hypertension, benign I10 Active 51958149 Problem Daytime sleepiness R40.0 Active 1 [id number] Problem Controlled type 2 diabetes m ellitus without complication, without long- term current use of insulin E11.9 Active 749619297 ALLERGIES No Information ENCOUNTERS Encounter Location Date Diagnosis [place] [address] [address] [place] [address] May, [place] [address] [address] [facility] [id number] [address] [place] [address] 08 Apr, 2018 Type 2 diabetes mellitus wit hout complications E11.9 [place] [address] [address] [place] [id number] [address] [place] [address] 19 Mar, 2018 Hypertension, benign I10 [place] [address] [address] [place] [id number] [address] [place] [address] 10 Mar, 2018 Localized edema R60.0 ; Cont rolled type 2 diabetes mellitus without complication, without long-term current use of insulin E11.9 and Morbid obesity due to excess calories E66.01 [place] [address] [facility] [id number] [address] [place] [address] 30 Feb, 2018 Type 2 diabetes mellitus wit hout complications E11.9 and Edema of both legs R60.0 [place] [address] [address] [facility] [id number] [address] [place] [address] Feb, Type 2 diabetes mellitus wit hout complications E11.9 and Edema of both legs R60.0 [place] [address] [facility] [id number] [address] [place] [address] Oct, Controlled type 2 diabetes m malik without complication, without long-term current use of insulin E11.9 and Localized edema R60.0 [place] [address] [place] [id number] [address] [place] [phone] Sep, Hypertension, essential I10 [place] [address] [place] [id number] [place] [address] Apr, Controlled type 2 diabetes m malik without complication, without long-term current use of insulin E11.9 [place] [address] [place] [id number] [address] [place] [address] Feb, Morbid obesity due to excess calories E66.01 [place] [address] [place] [id number] [address] [place] [address] Jan, Hypertension, essential I10 and Morbid obesity due to excess calories E66.01 [place] [address] [place] [id number] [address] [place] [address] Dec, Controlled type 2 diabetes antonieta gan without complication, without long-term current use of insulin E11.9 ; Morbid obesity due to excess calories E66.01 ; Daytime sleepiness R40.0 and Pain in left knee M25.562 [place] [address] [place] [id number] [address] [place] [address] Dec, Controlled type 2 diabetes m malik without complication, without long-term current use of insulin E11.9 ; Morbid obesity due to excess calories E66.01 ; Daytime sleepiness R40.0 and Pain in left knee M25.562 [place] [address] [place] [id number] [address] [place] [address] Jun, Hypertension, benign I10 and Controlled type 2 diabetes mellitus without complication, without long-term current use of insulin E11.9 [place] [address] [place] [id number] [address] [place] [address] Jan, Uncontrolled type 2 diabetes mellitus without complication, without long-term current use of insulin E11.65 and Hypertension, benign I10 [facility] [address] [id number] [address] [place] [address] Jan, Pain in joint, ankle and kaylee t 719.47 ; Diabetes mellitus without mention of complication, type II or unspecified type, not stated as uncontrolled 250.00 and Essential hypertension, benign 401.1 [facility] [address] [id number] [address] [place] [address] Jan, Pain in joint, ankle and kaylee t 719.47 ; Diabetes mellitus without mention of complication, type II or unspecified type, not stated as uncontrolled 250.00 and Essential hypertension, benign 401.1 [facility] [address] [id number] [address] [place] [address] Oct, [facility] [address] [id number] [address] [place] [address] Oct, [facility] [address] [id number] [address] [place] [address] Aug, [facility] [address] [id number] [address] [place] [address] Aug, [facility] [address] [id number] [address] [place] [address] Aug, [facility] [address] [id number] [address] [place] [address] Aug, [facility] [address] [id number] [address] [place] [phone] Jun, [facility] [address] [id number] [address] [place] [address] Jun, [facility] [address] [id number] [address] [place] [phone] Jun, [facility] [address] [facility] [id number] [address] [place] [address] Jun, [facility] [address] [id number] [address] [place] [address], [place] [address] May, [facility] [address] [id number] [address] [place] [address], [place] [address] May, [facility] [address] [id number] [address] [place] [address], [place] [address] Dec, [facility] [address] [id number] [address] [place] [address], [place] [address] Dec, [facility] [address] [id number] [address] [place] [address], [place] [address] Dec, [facility] [address] [id number] [address] [place] [address], [place] [address] Dec, [facility] [address] [id number] [address] [place] [address], [place] [address] November, [facility] [address] [id number] [address] [place] [address], [place] [address] November, [facility] [address] [id number] [address] [place] [address], [place] [address] November, [facility] [address] [id number] [address] [place] [address], [place] [address] November, [facility] [address] [id number] [address] [place] [address], [place] [address] November, [facility] [address] [id number] [address] [place] [address], [place] [address] November, [facility] [address] [id number] [address] [place] [address], [place] [address] November, [facility] [address] [id number] [address] [place] [address], [place] [address] November, [facility] [address] [id number] [address] [place] [address], [place] [address] November, [facility] [address] [id number] [address] [place] [address] November, [facility] [address] [id number] [address] [place] [address], [place] [address] Oct, [facility] [address] [id number] [address] [place] [address], [place] [address] Oct, [facility] [address] [id number] [address] [place] [address], [place] [address] Oct, [facility] [address] [id number] [address] [place] [address], [place] [address] Aug, [facility] [address] [id number] [address] [place] [address], [place] [address] Aug, [facility] [address] [id number] [address] [place] [address], [place] [address] Jul, [facility] [address] [id number] [address] [place] [address], [place] [address] Jul, [facility] [address] [id number] [address] [place] [address], [place] [address] Jul, [facility] [address] [id number] [address] [place] [address], [place] [address] Jul, [facility] [address] [id number] [address] [place] [address], [place] [address] Jun, [facility] [address] [id number] [address] [place] [address], [place] [address] Jun, [facility] [address] [id number] [address] [place] [address], [place] [address] Jun, [facility] [address] [id number] [address] [place] [address], [place] [address] Jun, [facility] [address] [id number] [address] [place] [address], [place] [address] Jun, [facility] [address] [id number] [address] [place] [address], [place] [address] Jun, [facility] [address] [facility] [id number] [address] [place] [address] Jun, IMMUNIZATIONS No Known Immunizations SOCIAL HISTORY Never Assessed REASON FOR VISIT med refill PLAN OF CARE VITAL SIGNS MEDICATIONS Medication Instructions Dosage Frequency Start Date End Date Duration S tat Lasix 40 mg Orally Once a day 1 tablet 24h Feb, 90 d ays Active RESULTS No Results PROCEDURES No Known procedures INSTRUCTIONS MEDICATIONS ADMINISTERED No Known Medications MEDICAL (GENERAL) HISTORY Type Description Date Medical History Hypertension Medical History Diabetes type 2 Medical History Hyperlipidemia Medical History testicular hypofuction Surgical History No Surgical history information Hospitalization History Arm fracture 1972
--- OUTSIDE RECORDS SUMMARY | 2019-10-06 05:48 | XMS REPORT ---
Author Author Benny PEÑALOZA Organization [facility] Address [address] [place] [address] Care Team Providers Care Interventional Pain Physician Name Role Phone GERMÁN PEÑALOZA Unavailable PROBLEMS Type Condition ICD9-CM Code KSB14-UP Code Onset Dates Condition S tatus SNOMED Code Problem Type 2 diabetes mellitus without complications E11 .9 Active 520521108 Problem Hypertension, essential I10 Active 44300521 Problem Controlled type 2 diabetes m ellitus without complication, without long- term current use of insulin E11.9 Active 139207131 Problem Hypertension, benign I10 Active 78060888 Problem Morbid obesity due to excess calories E66.01 Active 972954210 Problem Daytime sleepiness R40.0 Active 1 [id number] ALLERGIES No Known Allergies ENCOUNTERS Encounter Location Date Diagnosis [place] [id number] [facility] [id number] [address] [place] [address] Jul, [place] [address] [address] [facility] [id number] [address] [place] [address] Jun, Morbid obesity due to excess calories E66.01 [place] [address] [address] [facility] [id number] [address] [place] [address] May, Type 2 diabetes mellitus wit hout complications E11.9 and Morbid obesity due to excess calories E66.01 [place] [address] [facility] [id number] [address] [place] [address] Apr, Type 2 diabetes mellitus wit hout complications E11.9 [place] [facility] [id number] [address] [place] [address] Mar, Hypertension, benign I10 [place] [address] [facility] [id number] [address] [place] [address] 10 Mar, 2018 Localized edema R60.0 ; Cont rolled type 2 diabetes mellitus without complication, without long-term current use of insulin E11.9 and Morbid obesity due to excess calories E66.01 [facility] [address] [id number] [address] [place] [address] Feb, Type 2 diabetes mellitus wit hout complications E11.9 and Edema of both legs R60.0 [facility] [address] [id number] [address] [place] [address] Feb, Type 2 diabetes mellitus wit hout complications E11.9 and Edema of both legs R60.0 [facility] [address] [id number] [address] [place] [address] Oct, Controlled type 2 diabetes m ellitus without complication, without long-term current use of insulin E11.9 and Localized edema R60.0 [facility] [address] [id number] [address] [place] [address] Sep, Hypertension, essential I10 [place] [address] [id number] [address] [place] [address] Apr, Controlled type 2 diabetes m ellitus without complication, without long-term current use of insulin E11.9 [place] [address] [id number] [address] [place] [address] Feb, Morbid obesity due to excess calories E66.01 [facility] [address] [id number] [address] [place] [address] Jan, Hypertension, essential I10 and Morbid obesity due to excess calories E66.01 [facility] [address] [id number] [address] [place] [address] Dec, Controlled type 2 diabetes m ellitus without complication, without long-term current use of insulin E11.9 ; Morbid obesity due to excess calories E66.01 ; Daytime sleepiness R40.0 and Pain in left knee M25.562 [facility] [address] [id number] [address] [place] [address] Dec, Controlled type 2 diabetes m ellitus without complication, without long-term current use of insulin E11.9 ; Morbid obesity due to excess calories E66.01 ; Daytime sleepiness R40.0 and Pain in left knee M25.562 [facility] [address] [facility] [id number] [address] [place] [address] Jun, Hypertension, benign I10 and Controlled type 2 diabetes mellitus without complication, without long-term current use of insulin E11.9 [facility] [address] [facility] [id number] [address] [place] [address] Jan, Uncontrolled type 2 diabetes mellitus without complication, without long-term current use of insulin E11.65 and Hypertension, benign I10 [facility] [address] [facility] [id number] [address] [place] [address] Jan, Pain in joint, ankle and kaylee t 719.47 ; Diabetes mellitus without mention of complication, type II or unspecified type, not stated as uncontrolled 250.00 and Essential hypertension, benign 401.1 [facility] [address] [facility] [id number] [address] [place] [address] Jan, Pain in joint, ankle and kaylee t 719.47 ; Diabetes mellitus without mention of complication, type II or unspecified type, not stated as uncontrolled 250.00 and Essential hypertension, benign 401.1 [facility] [address] [facility] [id number] [address] [place] [address] Oct, [facility] [address] [facility] [id number] [address] [place] [address] Oct, [facility] [address] [facility] [id number] [address] [place] [address] Aug, [facility] [address] [facility] [id number] [address] [place] [address] Aug, [facility] [address] [facility] [id number] [address] [place] [address] Aug, [facility] [address] [facility] [id number] [address] [place] [address] Aug, [facility] [address] [id number] [address] [place] [address], [place] [address] Jun, [facility] [address] [id number] [address] [place] [address], [place] [address] Jun, [facility] [address] [id number] [address] [place] [address], [place] [address] Jun, [facility] [address] [id number] [address] [place] [address], [place] [address] Jun, [facility] [address] [id number] [address] [place] [address], [place] [address] May, [facility] [address] [id number] [address] [place] [address], [place] [address] May, [facility] [address] [id number] [address] [place] [address], [place] [address] Dec, [facility] [address] [id number] [address] [place] [address], [place] [address] Dec, [facility] [address] [id number] [address] [place] [address], [place] [address] Dec, [facility] [address] [id number] [address] [place] [address], [place] [address] Dec, [facility] [address] [id number] [address] [place] [address], [place] [address] November, [facility] [address] [id number] [address] [place] [address], [place] [address] November, [facility] [address] [id number] [address] [place] [address], [place] [address] November, [facility] [address] [id number] [address] [place] [address], [place] [address] November, [facility] [address] [id number] [address] [place] [address], [place] [address] November, [facility] [address] [id number] [address] [place] [address], [place] [address] November, [facility] [address] [id number] [address] [place] [address], [place] [address] November, [facility] [address] [id number] [address] [place] [address], [place] [address] November, [facility] [address] [id number] [address] [place] [address], [place] [address] November, [facility] [address] [id number] [address] [place] [address], [place] [address] November, [facility] [address] [id number] [address] [place] [address], [place] [address] Oct, [facility] [address] [id number] [address] [place] [address], [place] [address] Oct, [facility] [address] [id number] [address] [place] [address], [place] [address] Oct, [facility] [address] [id number] [address] [place] [address], [place] [address] Aug, [facility] [address] [id number] [address] [place] [address], [place] [address] Aug, [facility] [address] [id number] [address] [place] [address], [place] [address] Jul, [facility] [address] [id number] [address] [place] [address], [place] [address] Jul, [facility] [address] [id number] [address] [place] [address], [place] [address] Jul, [facility] [address] [id number] [address] [place] [address], [place] [address] Jul, [facility] [address] [id number] [address] [place] [address], [place] [address] Jun, [facility] [address] [id number] [address] [place] [address], [place] [address] Jun, [facility] [address] [id number] [address] [place] [address] Jun, [facility] [address] [facility] [id number] [address] [place] [address] Jun, [facility] [address] [facility] [id number] [address] [place] [address] Jun, [facility] [address] [facility] [id number] [address] [place] [address] Jun, [facility] [address] [facility] [id number] [address] [place] [address] Jun, IMMUNIZATIONS No Known Immunizations SOCIAL HISTORY Never Assessed REASON FOR VISIT Obesity LOTUS Read PLAN OF CARE Activity Details Follow Up 4 Weeks Reason:obesity VITAL SIGNS Height 73 in 2018-07-08 Weight 460.0 lbs 2018-07-08 Temperature 98.2 degrees Fahrenheit 2018-07-08 Heart Rate 80 bpm 2018-07-08 Respiratory Rate 20 2018-07-08 BMI 60.68 kg/m2 2018-07-08 Blood pressure systolic 148 mmHg 2018-07-08 Blood pressure diastolic 70 mmHg 2018-07-08 MEDICATIONS Medication Instructions Dosage Frequency Start Date End Date Duration S tatus Topamax 25 MG TAKE ONE TABLET BY MOUTH TWICE A DAY 90 Active Metformin HCl 1000 MG Orally Twice a day 1 tablet with meals 12h Jan, 30 day(s) Active Aspirin 325 MG 1 tablet 24h Jun, Not -Taking Lisinopril 40 MG TAKE ONE TABLET BY MOUTH DAILY 90 Active Pravastatin Sodium 40 MG TAKE ONE TABLET BY MOUTH DAILY 90 Active Percocet 5-325 MG Orally every 6 hrs 1 tablet as needed 6h 30 Apr, 2017 Not-Taking Hydrochlorothiazide 25 MG TAKE ONE TABLET BY MOUTH DAILY 90 Active GlipiZIDE 5 MG TAKE ONE TABLET BY MOUTH TWICE A DAY 90 Active Amlodipine Besylate 10 MG TAKE ONE TABLET BY MOUTH DAILY 90 Active Pravastatin Sodium 40 TAKE ONE TABLET BY MOUTH DAILY 90 Not-Taking Phentermine HCl 37.5 MG Orally Once a day 1 capsule 24h Active Metoprolol Tartrate 100 mg Orally Twice a day 1 Tablet 12h 20 2013 90 days Active Lasix 40 mg Orally Once a day [...]
--- OUTSIDE RECORDS SUMMARY | 2019-10-06 05:48 | XMS REPORT ---
Author Author Benny PEÑALOZA Organization [facility] Address [address] [place] [address] Care Team Providers Care Drupal Programmer Name Role Phone GERMÁN PEÑALOZA Unavailable PROBLEMS Type Condition ICD9-CM Code GLV98-VW Code Onset Dates Condition S tatus SNOMED Code Problem Hypertension, essential I10 Active 28380566 Problem Morbid obesity due to excess calories E66.01 Active 872880393 Problem Hypertension, benign I10 Active 23922905 Problem Daytime sleepiness R40.0 Active 1 31284347640 Problem Controlled type 2 diabetes m ellitus without complication, without long- term current use of insulin E11.9 Active 598776015 ALLERGIES No Information ENCOUNTERS Encounter Location Date Diagnosis [place] [address] [facility] [id number] [address] [place] [phone] May, [place] [address] [facility] [id number] [address] [place] [phone] Mar, Hypertension, benign I10 [place] [address] [facility] [id number] [address] [place] [phone] 10 Mar, 2018 Localized edema R60.0 ; Cont rolled type 2 diabetes mellitus without complication, without long-term current use of insulin E11.9 and Morbid obesity due to excess calories E66.01 [place] [address] [facility] [id number] [address] [place] [phone] Feb, Type 2 diabetes mellitus wit hout complications E11.9 and Edema of both legs R60.0 [place] [address] [facility] [id number] [address] [place] [phone] Feb, Type 2 diabetes mellitus wit hout complications E11.9 and Edema of both legs R60.0 [place] [address] [facility] [id number] [address] [place] [address] Oct, Controlled type 2 diabetes m ellitus without complication, without long-term current use of insulin E11.9 and Localized edema R60.0 [place] [id number] [place] [address] Sep, Hypertension, essential I10 [place] [address] [place] [id number] [address] [place] [address] Apr, Controlled type 2 diabetes m ellitus without complication, without long-term current use of insulin E11.9 [place] [address] [place] [id number] [address] [place] [address] Feb, Morbid obesity due to excess calories E66.01 [place] [address] [place] [id number] [address] [place] [address] Jan, Hypertension, essential I10 and Morbid obesity due to excess calories E66.01 [place] [address] [address] Dec, Controlled type 2 diabetes m talitus without complication, without long-term current use of insulin E11.9 ; Morbid obesity due to excess calories E66.01 ; Daytime sleepiness R40.0 and Pain in left knee M25.562 [place] [address] [place] [address] Dec, Controlled type 2 diabetes m ellitus without complication, without long-term current use of insulin E11.9 ; Morbid obesity due to excess calories E66.01 ; Daytime sleepiness R40.0 and Pain in left knee M25.562 [place] [address] [place] [id number] [address] [place] [address] Jun, Hypertension, benign I10 and Controlled type 2 diabetes mellitus without complication, without long-term current use of insulin E11.9 [place] [address] [place] [id number] [address] [place] [address] Jan, Uncontrolled type 2 diabetes mellitus without complication, without long-term current use of insulin E11.65 and Hypertension, benign I10 [place] [address] [id number] [address] [place] [address] Jan, Pain in joint, ankle and kaylee t 719.47 ; Diabetes mellitus without mention of complication, type II or unspecified type, not stated as uncontrolled 250.00 and Essential hypertension, benign 401.1 [facility] [address] [id number] [address] [place] [phone] Jan, Pain in joint, ankle and kaylee t 719.47 ; Diabetes mellitus without mention of complication, type II or unspecified type, not stated as uncontrolled 250.00 and Essential hypertension, benign 401.1 [facility] [address] [id number] [address] [place] [phone] Oct, [facility] [address] [id number] [address] [place] [address] Oct, [facility] [address] [id number] [address] [place] [phone] Aug, [facility] [address] [id number] [address] [place] [address] Aug, [facility] [address] [id number] [address] [place] [phone] Aug, [facility] [address] [id number] [address] [place] [phone] Aug, [facility] [address] [id number] [address] [place] [phone] Jun, [facility] [address] [id number] [address] [place] [phone] Jun, [facility] [address] [id number] [address] [place] [phone] Jun, [facility] [address] [id number] [address] [place] [phone] Jun, [facility] [address] [id number] [address] [place] [phone] May, [facility] [address] [id number] [address] [place] [address], [place] [address] May, [facility] [address] [id number] [address] [place] [address], [place] [address] Dec, [facility] [address] [id number] [address] [place] [address], [place] [address] Dec, [facility] [address] [id number] [address] [place] [address], [place] [address] Dec, [facility] [address] [id number] [address] [place] [address], [place] [address] Dec, [facility] [address] [id number] [address] [place] [address], [place] [address] November, [facility] [address] [id number] [address] [place] [address], [place] [address] November, [facility] [address] [id number] [address] [place] [address], [place] [address] November, [facility] [address] [id number] [address] [place] [address], [place] [address] November, [facility] [address] [id number] [address] [place] [address], [place] [address] November, [facility] [address] [id number] [address] [place] [address], [place] [address] November, [facility] [address] [id number] [address] [place] [address], [place] [address] November, [facility] [address] [id number] [address] [place] [address], [place] [address] November, [facility] [address] [id number] [address] [place] [address], [place] [address] November, [facility] [address] [id number] [address] [place] [address], [place] [address] November, [facility] [address] [id number] [address] [place] [address], [place] [address] Oct, [facility] [address] [id number] [address] [place] [phone] Oct, [facility] [address] [id number] [address] [place] [phone] Oct, [facility] [address] [id number] [address] [place] [phone] Aug, [facility] [address] [id number] [address] [place] [phone] Aug, [facility] [address] [id number] [address] [place] [address], [place] [address] Jul, [facility] [address] [id number] [address] [place] [phone] Jul, [facility] [address] [id number] [address] [place] [phone] Jul, [facility] [address] [id number] [address] [place] [phone] Jul, [facility] [address] [id number] [address] [place] [phone] Jun, [facility] [address] [id number] [address] [place] [id number] Jun, [facility] [address] [id number] [address] [place] [phone] Jun, [facility] [address] [id number] [address] [place] [phone] Jun, [facility] [address] [id number] [address] [place] [phone] Jun, [facility] [address] [id number] [address] [place] [phone] Jun, [facility] [address] [id number] [address] [place] [phone] Jun, IMMUNIZATIONS No Known Immunizations SOCIAL HISTORY Never Assessed REASON FOR VISIT Lab (walk-in) PLAN OF CARE VITAL SIGNS MEDICATIONS Unknown Medications RESULTS No Results PROCEDURES Procedure Date Ordered Result Body Site LIPID PANEL Mar 28, 2018 COMPREHEN METABOLIC PANEL Mar 28, 2018 ASSAY THYROID STIM HORMONE Mar 28, 2018 COMPLETE CBC W/AUTO DIFF WBC Mar 28, 2018 VENIPUNCT, ROUTINE* Mar 28, 2018 NATRIURETIC PEPTIDE Mar 28, 2018 INSTRUCTIONS MEDICATIONS ADMINISTERED No Known Medications MEDICAL (GENERAL) HISTORY Type Description Date Medical History Hypertension Medical History Diabetes type 2 Medical History Hyperlipidemia Medical History testicular hypofuction Surgical History No Surgical history information Hospitalization History Arm fracture 1972
--- OUTSIDE RECORDS SUMMARY | 2019-10-06 05:48 | XMS REPORT ---
Author Author Benny PEÑALOZA Organization [facility] Address [address] [place] [address] Care Team Providers Care Board Handler Name Role Phone GERMÁN PEÑALOZA Unavailable PROBLEMS Type Condition ICD9-CM Code [id number] Code Onset Dates Condition S tatus SNOMED Code Problem Type 2 diabetes mellitus without complications E11 .9 Active 398059924 Problem Hypertension, essential I10 Active 06777623 Problem Controlled type 2 diabetes m ellitus without complication, without long- term current use of insulin E11.9 Active 009874116 Problem Hypertension, benign I10 Active 32246635 Problem Morbid obesity due to excess calories E66.01 Active 346033052 Problem Daytime sleepiness R40.0 Active 1 [id number] ALLERGIES No Known Allergies ENCOUNTERS Encounter Location Date Diagnosis [place] [address] [address] [place] [id number] [address] [place] [phone] Jun, [place] [address] [address] [place] [id number] [address] [place] [address] May, Type 2 diabetes mellitus wit hout complications E11.9 and Morbid obesity due to excess calories E66.01 [place] [address] [facility] [id number] [address] [place] [address] Apr, Type 2 diabetes mellitus wit hout complications E11.9 [place] [address] [facility] [id number] [address] [place] [address] Mar, Hypertension, benign I10 [place] [address] [facility] [id number] [address] [place] [phone] 10 Mar, 2018 Localized edema R60.0 ; Cont rolled type 2 diabetes mellitus without complication, without long-term current use of insulin E11.9 and Morbid obesity due to excess calories E66.01 [place] [address] [id number] [address] [place] [address] Feb, Type 2 diabetes mellitus wit hout complications E11.9 and Edema of both legs R60.0 [place] [address] [id number] [address] [place] [address] Feb, Type 2 diabetes mellitus wit hout complications E11.9 and Edema of both legs R60.0 [place] [address] [id number] [address] [place] [address] Oct, Controlled type 2 diabetes m ellitus without complication, without long-term current use of insulin E11.9 and Localized edema R60.0 [place] [address] [id number] [address] [place] [phone] Sep, Hypertension, essential I10 [place] [address] [facility] [id number] [address] [place] [address] Apr, Controlled type 2 diabetes m talitus without complication, without long-term current use of insulin E11.9 [place] [address] [facility] [id number] [address] [place] [address] Feb, Morbid obesity due to excess calories E66.01 [place] [address] [facility] [id number] [address] [place] [address] Jan, Hypertension, essential I10 and Morbid obesity due to excess calories E66.01 [place] [address] [facility] [id number] [address] [place] [address] Dec, Controlled type 2 diabetes m talitus without complication, without long-term current use of insulin E11.9 ; Morbid obesity due to excess calories E66.01 ; Daytime sleepiness R40.0 and Pain in left knee M25.562 [place] [address] [id number] [address] [place] [address] Dec, Controlled type 2 diabetes m ellitus without complication, without long-term current use of insulin E11.9 ; Morbid obesity due to excess calories E66.01 ; Daytime sleepiness R40.0 and Pain in left knee M25.562 [place] [address] [id number] [address] [place] [address] Jun, Hypertension, benign I10 and Controlled type 2 diabetes mellitus without complication, without long-term current use of insulin E11.9 [facility] [address] [facility] [id number] [address] [place] [phone] Jan, Uncontrolled type 2 diabetes mellitus without complication, without long-term current use of insulin E11.65 and Hypertension, benign I10 [facility] [address] [facility] [id number] [address] [place] [address] Jan, Pain in joint, ankle and kaylee t 719.47 ; Diabetes mellitus without mention of complication, type II or unspecified type, not stated as uncontrolled 250.00 and Essential hypertension, benign 401.1 [facility] [address] [facility] [id number] [address] [place] [address] Jan, Pain in joint, ankle and kaylee t 719.47 ; Diabetes mellitus without mention of complication, type II or unspecified type, not stated as uncontrolled 250.00 and Essential hypertension, benign 401.1 [facility] [address] [facility] [id number] [address] [place] [address] Oct, [facility] [address] [facility] [id number] [address] [place] [phone] Oct, [facility] [address] [facility] [id number] [address] [place] [address] Aug, [facility] [address] [facility] [id number] [address] [place] [phone] Aug, [facility] [address] [facility] [id number] [address] [place] [phone] Aug, [facility] [address] [facility] [id number] [address] [place] [phone] Aug, [facility] [address] [facility] [id number] [address] [place] [address] Jun, [facility] [address] [facility] [id number] [address] [place] [address] Jun, [facility] [address] [id number] [address] [place] [address], [place] [address] Jun, [facility] [address] [id number] [address] [place] [address], [place] [address] Jun, [facility] [address] [id number] [address] [place] [address], [place] [address] May, [facility] [address] [id number] [address] [place] [address], [place] [address] May, [facility] [address] [id number] [address] [place] [address], [place] [address] Dec, [facility] [address] [id number] [address] [place] [address], [place] [address] Dec, [facility] [address] [id number] [address] [place] [address], [place] [address] Dec, [facility] [address] [id number] [address] [place] [address], [place] [address] Dec, [facility] [address] [id number] [address] [place] [address], [place] [address] November, [facility] [address] [id number] [address] [place] [address], [place] [address] November, [facility] [address] [id number] [address] [place] [address], [place] [address] November, [facility] [address] [id number] [address] [place] [address], [place] [address] November, [facility] [address] [id number] [address] [place] [address], [place] [address] November, [facility] [address] [id number] [address] [place] [address], [place] [address] November, [facility] [address] [id number] [address] [place] [address], [place] [address] November, [facility] [address] [id number] [address] [place] [address], [place] [address] November, [facility] [address] [id number] [address] [place] [address], [place] [address] November, [facility] [address] [id number] [address] [place] [address], [place] [address] November, [facility] [address] [id number] [address] [place] [address], [place] [address] Oct, [facility] [address] [id number] [address] [place] [address], [place] [address] Oct, [facility] [address] [id number] [address] [place] [address], [place] [address] Oct, [facility] [address] [id number] [address] [place] [address], [place] [address] Aug, [facility] [address] [id number] [address] [place] [address], [place] [address] Aug, [facility] [address] [id number] [address] [place] [address], [place] [address] Jul, [facility] [address] [id number] [address] [place] [address], [place] [address] Jul, [facility] [address] [id number] [address] [place] [address], [place] [address] Jul, [facility] [address] [id number] [address] [place] [address], [place] [address] Jul, [facility] [address] [id number] [address] [place] [address], [place] [address] Jun, [facility] [address] [id number] [address] [place] [address], [place] [address] Jun, [facility] [address] [id number] [address] [place] [address], [place] [address] Jun, [facility] [address] [id number] [address] [place] [address], [place] [address] Jun, [facility] [address] [facility] [id number] [address] [place] [address] Jun, [facility] [address] [facility] [id number] [address] [place] [phone] Jun, [facility] [address] [facility] [id number] [address] [place] [address] Jun, IMMUNIZATIONS No Known Immunizations SOCIAL HISTORY Never Assessed REASON FOR VISIT Diabetes LOTUS Read PLAN OF CARE Activity Details Follow Up 4 Weeks Reason:obesity VITAL SIGNS Height 73 in 2018-06-10 Weight 463.8 lbs 2018-06-10 Temperature 98.0 degrees Fahrenheit 2018-06-10 Heart Rate 88 bpm 2018-06-10 Respiratory Rate 20 2018-06-10 BMI 61.18 kg/m2 2018-06-10 Blood pressure systolic 158 mmHg 2018-06-10 Blood pressure diastolic 70 mmHg 2018-06-10 MEDICATIONS Medication Instructions Dosage Frequency Start Date End Date Duration S tatus GlipiZIDE 5 MG TAKE ONE TABLET BY MOUTH TWICE A DAY 90 Active Topamax 25 MG TAKE ONE TABLET BY MOUTH TWICE A DAY 90 Active Topamax 25 TAKE ONE TABLET BY MOUTH TWICE A DAY 30 Active Metformin HCl 1000 MG Orally Twice a day 1 tablet with meals 12h Jan, 30 day(s) Active Pravastatin Sodium 40 MG TAKE ONE TABLET BY MOUTH DAILY 90 Active Lasix 40 mg Orally Once a day 1 tablet 24h Feb, 90 d ays Active Phentermine HCl 15 MG Orally Once a day 1 capsule 24h Active Hydrochlorothiazide 25 MG TAKE ONE TABLET BY MOUTH DAILY 90 Active Lisinopril 40 MG TAKE ONE TABLET BY MOUTH DAILY 90 Active Amlodipine Besylate 10 MG TAKE ONE TABLET BY MOUTH DAILY 90 Active Percocet 5-325 MG Orally every 6 hrs 1 tablet as needed 6h 30 Apr, 2017 Not-Taking Aspirin 325 MG 1 tablet 24h Jun, Act alvin Metoprolol Tartrate 100 mg Orally Twice a day 1 Tablet 12h 20 2013 90 days Active Pravastatin Sodium 40 TAKE ONE TABLET BY MOUTH DAILY 90 Not-Taking RESULTS Name Result Date Reference Range A1C (IN HOUSE) A1C IN HOUSE 7.0 4.3 - 5.6 % Previous A1c 6.9 Lot [id number] Exp date 09/2019 PROCEDURES Procedure Date Ordered Result Body Site GLYCATED HEMOGLOBIN TEST Jun 10, 2018 INSTRUCTIONS MEDICATIONS ADMINISTERED No Known Medications MEDICAL (GENERAL) HISTORY Type Description Date Medical History Hypertension Medical History Diabetes type 2 Medical History Hyperlipidemia Medical History testicular hypofuction Surgical History No Surgical history information Hospitalization History Arm fracture 1972
--- OUTSIDE RECORDS SUMMARY | 2019-10-06 05:48 | XMS REPORT ---
Author Author Benny PEÑALOZA Organization [facility] Address [address] [place] [address] Care Team Providers Care Bead Wire Taper Name Role Phone GERMÁN PEÑALOZA Unavailable PROBLEMS Type Condition ICD9-CM Code [id number] Code Onset Dates Condition S tatus SNOMED Code Problem Hypertension, essential I10 Active 30094139 Problem Morbid obesity due to excess calories E66.01 Active 921152247 Problem Hypertension, benign I10 Active 22710886 Problem Daytime sleepiness R40.0 Active 1 21395974279 Problem Controlled type 2 diabetes m ellitus without complication, without long- term current use of insulin E11.9 Active 033944233 ALLERGIES No Known Allergies ENCOUNTERS Encounter Location Date Diagnosis [place] [address] [address] [place] [id number] [address] [place] [address] May, [place] [address] [facility] [id number] [address] [place] [address] Mar, Hypertension, benign I10 [place] [address] [facility] [id number] [address] [place] [address] 10 Mar, 2018 Localized edema R60.0 ; Cont rolled type 2 diabetes mellitus without complication, without long-term current use of insulin E11.9 and Morbid obesity due to excess calories E66.01 [place] [id number] [facility] [id number] [address] [place] [address] Feb, Type 2 diabetes mellitus wit hout complications E11.9 and Edema of both legs R60.0 [place] [address] [facility] [id number] [address] [place] [address] Feb, Type 2 diabetes mellitus wit hout complications E11.9 and Edema of both legs R60.0 [place] [address] [address] [place] [id number] [address] [place] [address] Oct, Controlled type 2 diabetes m ellitus without complication, without long-term current use of insulin E11.9 and Localized edema R60.0 [place] [id number] [place] [address] Sep, Hypertension, essential I10 [place] [address] [address] [place] [id number] [address] [place] [address] Apr, Controlled type 2 diabetes m ellitus without complication, without long-term current use of insulin E11.9 [place] [address] [place] [id number] [address] [place] [address] Feb, Morbid obesity due to excess calories E66.01 [place] [address] [address] Jan, Hypertension, essential I10 and Morbid obesity due to excess calories E66.01 [place] [address] [address] Dec, Controlled type 2 diabetes m ellitus without complication, without long-term current use of insulin E11.9 ; Morbid obesity due to excess calories E66.01 ; Daytime sleepiness R40.0 and Pain in left knee M25.562 [place] [address] [place] [address] Dec, Controlled type 2 diabetes m ellitus without complication, without long-term current use of insulin E11.9 ; Morbid obesity due to excess calories E66.01 ; Daytime sleepiness R40.0 and Pain in left knee M25.562 [place] [address] [place] [address] Jun, Hypertension, benign I10 and Controlled type 2 diabetes mellitus without complication, without long-term current use of insulin E11.9 [place] [address] [place] [id number] [address] [place] [address] Jan, Uncontrolled type 2 diabetes mellitus without complication, without long-term current use of insulin E11.65 and Hypertension, benign I10 [place] [address] [place] [address] Jan, Pain in joint, ankle and kaylee t 719.47 ; Diabetes mellitus without mention of complication, type II or unspecified type, not stated as uncontrolled 250.00 and Essential hypertension, benign 401.1 [facility] [address] [id number] [address] [place] [address] Jan, Pain in joint, ankle and kaylee t 719.47 ; Diabetes mellitus without mention of complication, type II or unspecified type, not stated as uncontrolled 250.00 and Essential hypertension, benign 401.1 [facility] [address] [id number] [address] [place] [address] Oct, [facility] [address] [id number] [address] [place] [address] Oct, [facility] [address] [id number] [address] [place] [address] Aug, [facility] [address] [id number] [address] [place] [address] Aug, [facility] [address] [id number] [address] [place] [address] Aug, [facility] [address] [id number] [address] [place] [address] Aug, [facility] [address] [id number] [address] [place] [address] Jun, [facility] [address] [id number] [address] [place] [address] Jun, [facility] [address] [id number] [address] [place] [address] Jun, [facility] [address] [id number] [address] [place] [address] Jun, [facility] [address] [id number] [address] [place] [address] May, [facility] [address] [id number] [address] [place] [address], [place] [address] May, [facility] [address] [id number] [address] [place] [address], [place] [address] Dec, [facility] [address] [id number] [address] [place] [address], [place] [address] Dec, [facility] [address] [id number] [address] [place] [address], [place] [address] Dec, [facility] [address] [id number] [address] [place] [address], [place] [address] Dec, [facility] [address] [id number] [address] [place] [address], [place] [address] November, [facility] [address] [id number] [address] [place] [address], [place] [address] November, [facility] [address] [id number] [address] [place] [address], [place] [address] November, [facility] [address] [id number] [address] [place] [address], [place] [address] November, [facility] [address] [id number] [address] [place] [address], [place] [address] November, [facility] [address] [id number] [address] [place] [address], [place] [address] November, [facility] [address] [id number] [address] [place] [address], [place] [address] November, [facility] [address] [id number] [address] [place] [address], [place] [address] November, [facility] [address] [id number] [address] [place] [address], [place] [address] November, [facility] [address] [id number] [address] [place] [address], [place] [address] November, [facility] [address] [id number] [address] [place] [address], [place] [address] Oct, [facility] [address] [id number] [address] [place] [address], [place] [address] Oct, [facility] [address] [id number] [address] [place] [address], [place] [address] Oct, [facility] [address] [id number] [address] [place] [address], [place] [address] Aug, [facility] [address] [id number] [address] [place] [address], [place] [address] Aug, [facility] [address] [id number] [address] [place] [address], [place] [address] Jul, [facility] [address] [id number] [address] [place] [address] Jul, [facility] [address] [id number] [address] [place] [address], [place] [address] Jul, [facility] [address] [id number] [address] [place] [address] Jul, [facility] [address] [id number] [address] [place] [address] Jun, [facility] [address] [id number] [address] [place] [address] Jun, [facility] [address] [id number] [address] [place] [address] Jun, [facility] [address] [id number] [address] [place] [address] Jun, [facility] [address] [id number] [address] [place] [address] Jun, [facility] [address] [id number] [address] [place] [address] Jun, [facility] [address] [id number] [address] [place] [address] Jun, IMMUNIZATIONS No Known Immunizations SOCIAL HISTORY Never Assessed REASON FOR VISIT follow [place] from last month [place] PLAN OF CARE VITAL SIGNS Height 73 in 2018-04-08 Weight 455.6 lbs 2018-04-08 Temperature 98.2 degrees Fahrenheit 2018-04-08 Heart Rate 84 bpm 2018-04-08 Respiratory Rate 20 2018-04-08 BMI 60.10 kg/m2 2018-04-08 Blood pressure systolic 152 mmHg 2018-04-08 Blood pressure diastolic 74 mmHg 2018-04-08 MEDICATIONS Medication Instructions Dosage Frequency Start Date End Date Duration S huy Metoprolol Tartrate 100 MG Orally Twice a day 1 Tablet 12h 20 Dec, 014 Active Lisinopril 40 mg take 1 tablet 24h Aug, Active Pravastatin Sodium 40 mg Orally Once a day 1 tablet 24h Jan, 30 day(s) Active Percocet 5-325 MG Orally every 6 hrs 1 tablet as needed 6h 30 Apr, 2017 Not-Taking Hydrochlorothiazide 25 MG Orally Once a day 1 tablet 24h Jan, 201 6 Active Pravastatin Sodium 40 TAKE ONE TABLET BY MOUTH DAILY 90 Not-Taking Aspirin 325 MG 1 tablet 24h Jun, Act alvin Amlodipine Besylate 10 MG Orally Once a day 1 tablet 24h Jan 30 day(s) Active GlipiZIDE 5 mg take 1 tablet 12h May, 30 Active Metformin HCl 1000 MG Orally Twice a day 1 tablet with meals 12h Jan, 30 day(s) Active Topamax 25 TAKE ONE TABLET BY MOUTH TWICE A DAY 30 Active Lasix 40 mg Orally Once a day 1 tablet 24h Feb, 30 d ay(s) Active RESULTS No Results PROCEDURES Procedure Date Ordered Result Body Site BASIC METABOLIC PANEL Apr 08, 2018 VENIPUNCT, ROUTINE* Apr 08, 2018 INSTRUCTIONS MEDICATIONS ADMINISTERED No Known Medications MEDICAL (GENERAL) HISTORY Type Description Date Medical History Hypertension Medical History Diabetes type 2 Medical History Hyperlipidemia Medical History testicular hypofuction Surgical History No Surgical history information Hospitalization History Arm fracture 1972
--- OUTSIDE RECORDS SUMMARY | 2019-10-06 05:48 | XMS REPORT ---
Author Author Benny Cerda Doctor Organization [facility] Address Unknown Phone Unavailable Care Team Providers Care Bill Sorter Name Role Phone Migration, Doctor Unavailable Unavailable PROBLEMS Type Condition ICD9-CM Code HZN59-TL Code Onset Dates Condition S tatus SNOMED Code Problem Hypertension, essential I10 Active 82261040 Problem Type 2 diabetes mellitus without complications E11 .9 Active 879543102 Problem Hypertension, benign I10 Active 00415812 Problem Controlled type 2 diabetes m ellitus without complication, without long- term current use of insulin E11.9 Active 472034536 Problem Daytime sleepiness R40.0 Active 1 49917182675 Problem Morbid obesity due to excess calories E66.01 Active 304855031 ALLERGIES No Information ENCOUNTERS Encounter Location Date Diagnosis [place] [address] [address] [place] [id number] [address] [place] [id number] 11 Aug, 2018 BMI 50.0-59.9, adult Z68.43 and Morbid obesity due to excess calories E66.01 [place] [address] [place] [id number] [address] [place] [phone] Jul, Morbid obesity due to excess calories E66.01 [place] [address] [place] [id number] [address] [place] [phone] Jun, Morbid obesity due to excess calories E66.01 [place] [address] [place] [id number] [address] [place] [phone] May, Type 2 diabetes mellitus wit hout complications E11.9 and Morbid obesity due to excess calories E66.01 [place] [address] [place] [id number] [address] [place] [id number] 08 Apr, 2018 Type 2 diabetes mellitus wit hout complications E11.9 [place] [address] [place] [id number] [address] [place] [phone] Mar, Hypertension, benign I10 [place] [address] [facility] [id number] [address] [place] [phone] Mar, Localized edema R60.0 ; Cont rolled type 2 diabetes mellitus without complication, without long-term current use of insulin E11.9 and Morbid obesity due to excess calories E66.01 [place] [address] [facility] [id number] [address] [place] [phone] Feb, Type 2 diabetes mellitus wit hout complications E11.9 and Edema of both legs R60.0 [place] [address] [facility] [id number] [address] [place] [phone] Feb, Type 2 diabetes mellitus wit hout complications E11.9 and Edema of both legs R60.0 [place] [address] [place] [id number] [address] [place] [phone] Oct, Controlled type 2 diabetes m ellitus without complication, without long-term current use of insulin E11.9 and Localized edema R60.0 [place] [address] [facility] [id number] [address] [place] [phone] Sep, Hypertension, essential I10 [place] [address] [id number] [address] [place] [phone] Apr, Controlled type 2 diabetes m ellitus without complication, without long-term current use of insulin E11.9 [place] [address] [facility] [id number] [address] [place] [phone] Feb, Morbid obesity due to excess calories E66.01 [place] [address] [facility] [id number] [address] [place] [phone] Jan, Hypertension, essential I10 and Morbid obesity due to excess calories E66.01 [place] [address] [facility] [id number] [address] [place] [phone] Dec, Controlled type 2 diabetes m ellitus without complication, without long-term current use of insulin E11.9 ; Morbid obesity due to excess calories E66.01 ; Daytime sleepiness R40.0 and Pain in left knee M25.562 [place] [address] [facility] [id number] [address] [place] [phone] Dec, Controlled type 2 diabetes m ellitus without complication, without long-term current use of insulin E11.9 ; Morbid obesity due to excess calories E66.01 ; Daytime sleepiness R40.0 and Pain in left knee M25.562 [facility] [address] [facility] [id number] [address] [place] [phone] Jun, Hypertension, benign I10 and Controlled type 2 diabetes mellitus without complication, without long-term current use of insulin E11.9 [place] [address] [facility] [id number] [address] [place] [phone] Jan, Uncontrolled type 2 diabetes mellitus without complication, without long-term current use of insulin E11.65 and Hypertension, benign I10 [place] [address] [facility] [id number] [address] [place] [phone] Jan, Pain in joint, ankle and kaylee t 719.47 ; Diabetes mellitus without mention of complication, type II or unspecified type, not stated as uncontrolled 250.00 and Essential hypertension, benign 401.1 [facility] [address] [facility] [id number] [address] [place] [phone] Jan, Pain in joint, ankle and kaylee t 719.47 ; Diabetes mellitus without mention of complication, type II or unspecified type, not stated as uncontrolled 250.00 and Essential hypertension, benign 401.1 [place] [address] [facility] [id number] [address] [place] [phone] Oct, [facility] [address] [facility] [id number] [address] [place] [phone] Oct, [facility] [address] [facility] [id number] [address] [place] [phone] Aug, [facility] [address] [place] [id number] [address] [place] [phone] Aug, [place] [address] [place] [id number] [address] [place] [phone] Aug, [facility] [address] [id number] [address] [place] [address], [place] [address] Aug, [facility] [address] [id number] [address] [place] [address], [place] [phone] Jun, [facility] [address] [id number] [address] [place] [address], [place] [phone] Jun, [facility] [address] [id number] [address] [place] [address], [place] [phone] Jun, [facility] [address] [id number] [address] [place] [address], [place] [phone] Jun, [facility] [address] [id number] [address] [place] [address], [place] [phone] May, [facility] [address] [id number] [address] [place] [address], [place] [phone] May, [facility] [address] [id number] [address] [place] [address], [place] [phone] Dec, [facility] [address] [id number] [address] [place] [address], [place] [phone] Dec, [facility] [address] [id number] [address] [place] [address], [place] [phone] Dec, [facility] [address] [id number] [address] [place] [address], [place] [id number] Dec, [facility] [address] [id number] [address] [place] [address], [place] [phone] November, [facility] [address] [id number] [address] [place] [address], [place] [phone] November, [facility] [address] [id number] [address] [place] [address], [place] [phone] November, [facility] [address] [id number] [address] [place] [address], [place] [phone] November, [facility] [address] [id number] [address] [place] [address], [place] [id number] November, [facility] [address] [id number] [address] [place] [address], [place] [phone] November, [facility] [address] [id number] [address] [place] [address], [place] [phone] November, [facility] [address] [id number] [address] [place] [address], [place] [phone] November, [facility] [address] [id number] [address] [place] [address], [place] [phone] November, [facility] [address] [id number] [address] [place] [address], [place] [address] November, [facility] [address] [id number] [address] [place] [address], [place] [address] Oct, [facility] [address] [id number] [address] [place] [address], [place] [phone] Oct, [facility] [address] [id number] [address] [place] [address], [place] [address] Oct, [facility] [address] [id number] [address] [place] [address], [place] [phone] Aug, [facility] [address] [id number] [address] [place] [address], [place] [id number] Aug, [facility] [address] [id number] [address] [place] [address], [place] [address] Jul, [facility] [address] [id number] [address] [place] [address], [place] [phone] Jul, [facility] [address] [id number] [address] [place] [address], [place] [phone] Jul, [facility] [address] [id number] [address] [place] [address], [place] [phone] Jul, [facility] [address] [id number] [address] [place] [address], [place] [phone] Jun, [facility] [address] [id number] [address] [place] [phone] Jun, [facility] [address] [facility] [id number] [address] [place] [phone] Jun, [facility] [address] [facility] [id number] [address] [place] [phone] Jun, [facility] [address] [facility] [id number] [address] [place] [phone] Jun, [facility] [address] [facility] [id number] [address] [place] [phone] Jun, [facility] [address] [facility] [id number] [address] [place] [phone] Jun, IMMUNIZATIONS No Known Immunizations SOCIAL HISTORY Never Assessed REASON FOR VISIT [facility]MR[facility] PLAN OF CARE VITAL SIGNS MEDICATIONS Medication Instructions Dosage Frequency Start Date End Date Duration S tatus Potassium Gluconate 500 mg (83 mg) 1 time per day Jun Active Terbinafine 1 % 1 christos by Topical route 2 times per day for 30 day(s) Dec, Active Depo-Testosterone 200 mg/mL inject 1 mil liliters by Intramuscular route 1 time per month November, Active metformin 1,000 mg take 1 tablet (1,000 mg) by oral route 2 times per day with morning and evening meals Dec, Ac tive pravastatin 40 mg take 1 tablet (40 mg) by oral route once daily Dec, Active GlipiZIDE 5 mg take 1 tablet (5 mg) by oral route 2 times per day before meals May, Active Apopka 5-325 mg take 1 tablet by oral route every 6 maryanne rs as needed for pain Dec, Active Lisinopril 40 mg take 1 tablet (40 mg) by oral route o nce daily Aug, Active Aspirin 325 mg take 1 tablet (325 mg) by oral route once d aily Jun, Active Metoprolol Tartrate 50 mg 1 Tablet by Oral route 2 daily Dec, Active RESULTS No Results PROCEDURES No Known procedures INSTRUCTIONS MEDICATIONS ADMINISTERED No Known Medications MEDICAL (GENERAL) HISTORY Type Description Date Medical History Hypertension Medical History Diabetes type 2 Medical History Hyperlipidemia Medical History testicular hypofuction Surgical History No know Surgical history Hospitalization History Arm fracture 1972
--- OUTSIDE RECORDS SUMMARY | 2019-10-06 05:48 | XMS REPORT ---
Author Author Benny PEÑALOZA Organization [facility] Address [address] [place] [address] Care Team Providers Care Shipfitters Supervisor Name Role Phone GERMÁN PEÑALOZA Unavailable PROBLEMS Type Condition ICD9-CM Code SAB34-FK Code Onset Dates Condition S tatus SNOMED Code Problem Hypertension, essential I10 Active 54636678 Problem Morbid obesity due to excess calories E66.01 Active 015844097 Problem Hypertension, benign I10 Active 78055085 Problem Daytime sleepiness R40.0 Active 1 65304132018 Problem Controlled type 2 diabetes m ellitus without complication, without long- term current use of insulin E11.9 Active 762186661 ALLERGIES No Information ENCOUNTERS Encounter Location Date Diagnosis [place] [address] [facility] [id number] [address] [place] [phone] May, [place] [address] [facility] [id number] [address] [place] [phone] Mar, Hypertension, benign I10 [place] [address] [facility] [id number] [address] [place] [phone] 10 Mar, 2018 Localized edema R60.0 ; Cont rolled type 2 diabetes mellitus without complication, without long-term current use of insulin E11.9 and Morbid obesity due to excess calories E66.01 [place] [address] [facility] [id number] [address] [place] [address] Feb, Type 2 diabetes mellitus wit hout complications E11.9 and Edema of both legs R60.0 [place] [address] [facility] [id number] [address] [place] [phone] Feb, Type 2 diabetes mellitus wit hout complications E11.9 and Edema of both legs R60.0 [place] [address] [facility] [id number] [address] [place] [phone] Oct, Controlled type 2 diabetes m ellitus without complication, without long-term current use of insulin E11.9 and Localized edema R60.0 [place] [id number] [place] [phone] Sep, Hypertension, essential I10 [place] [address] [place] [id number] [address] [place] [address] Apr, Controlled type 2 diabetes m ellitus without complication, without long-term current use of insulin E11.9 [place] [address] [place] [id number] [address] [place] [phone] Feb, Morbid obesity due to excess calories E66.01 [place] [address] [place] [id number] [address] [place] [address] Jan, Hypertension, essential I10 and Morbid obesity due to excess calories E66.01 [place] [address] [address] Dec, Controlled type 2 diabetes m talitus without complication, without long-term current use of insulin E11.9 ; Morbid obesity due to excess calories E66.01 ; Daytime sleepiness R40.0 and Pain in left knee M25.562 [place] [id number] [place] [address] Dec, Controlled type 2 diabetes m ellitus without complication, without long-term current use of insulin E11.9 ; Morbid obesity due to excess calories E66.01 ; Daytime sleepiness R40.0 and Pain in left knee M25.562 [place] [address] [place] [id number] [address] [place] [phone] Jun, Hypertension, benign I10 and Controlled type 2 diabetes mellitus without complication, without long-term current use of insulin E11.9 [place] [address] [place] [id number] [address] [place] [phone] Jan, Uncontrolled type 2 diabetes mellitus without complication, without long-term current use of insulin E11.65 and Hypertension, benign I10 [place] [address] [id number] [address] [place] [address] Jan, Pain in joint, ankle and kaylee t 719.47 ; Diabetes mellitus without mention of complication, type II or unspecified type, not stated as uncontrolled 250.00 and Essential hypertension, benign 401.1 [facility] [address] [id number] [address] [place] [address] Jan, Pain in joint, ankle and kaylee t 719.47 ; Diabetes mellitus without mention of complication, type II or unspecified type, not stated as uncontrolled 250.00 and Essential hypertension, benign 401.1 [facility] [address] [id number] [address] [place] [phone] Oct, [facility] [address] [id number] [address] [place] [phone] Oct, [facility] [address] [id number] [address] [place] [phone] Aug, [facility] [address] [id number] [address] [place] [phone] Aug, [facility] [address] [id number] [address] [place] [phone] Aug, [facility] [address] [id number] [address] [place] [phone] Aug, [facility] [address] [id number] [address] [place] [phone] Jun, [facility] [address] [id number] [address] [place] [phone] Jun, [facility] [address] [id number] [address] [place] [phone] Jun, [facility] [address] [id number] [address] [place] [phone] Jun, [facility] [address] [id number] [address] [place] [phone] May, [facility] [address] [id number] [address] [place] [address], [place] [id number] May, [facility] [address] [id number] [address] [place] [address], [place] [id number] Dec, [facility] [address] [id number] [address] [place] [address], [place] [id number] Dec, [facility] [address] [id number] [address] [place] [address], [place] [id number] Dec, [facility] [address] [id number] [address] [place] [address], [place] [address] Dec, [facility] [address] [id number] [address] [place] [address], [place] [id number] November, [facility] [address] [id number] [address] [place] [address], [place] [id number] November, [facility] [address] [id number] [address] [place] [address], [place] [id number] November, [facility] [address] [id number] [address] [place] [address], [place] [id number] November, [facility] [address] [id number] [address] [place] [address], [place] [id number] November, [facility] [address] [id number] [address] [place] [address], [place] [id number] November, [facility] [address] [id number] [address] [place] [address], [place] [id number] November, [facility] [address] [id number] [address] [place] [address], [place] [id number] November, [facility] [address] [id number] [address] [place] [address], [place] [id number] November, [facility] [address] [id number] [address] [place] [address], [place] [id number] November, [facility] [address] [id number] [address] [place] [address], [place] [id number] Oct, [facility] [address] [id number] [address] [place] [phone] Oct, [facility] [address] [id number] [address] [place] [phone] Oct, [facility] [address] [id number] [address] [place] [phone] Aug, [facility] [address] [id number] [address] [place] [phone] Aug, [facility] [address] [id number] [address] [place] [phone] Jul, [facility] [address] [id number] [address] [place] [phone] Jul, [facility] [address] [id number] [address] [place] [phone] Jul, [facility] [address] [id number] [address] [place] [phone] Jul, [facility] [address] [id number] [address] [place] [phone] Jun, [facility] [address] [id number] [address] [place] [phone] Jun, [facility] [address] [id number] [address] [place] [phone] Jun, [facility] [address] [id number] [address] [place] [phone] Jun, [facility] [address] [id number] [address] [place] [phone] Jun, [facility] [address] [id number] [address] [place] [phone] Jun, [facility] [address] [id number] [address] [place] [phone] Jun, IMMUNIZATIONS No Known Immunizations SOCIAL HISTORY Never Assessed REASON FOR VISIT Medication refill request PLAN OF CARE VITAL SIGNS MEDICATIONS Medication Instructions Dosage Frequency Start Date End Date Duration Janey son Metoprolol Tartrate 100 mg Orally Twice a day 1 Tablet 12h 20 J , 2013 90 days Active RESULTS No Results PROCEDURES No Known procedures INSTRUCTIONS MEDICATIONS ADMINISTERED No Known Medications MEDICAL (GENERAL) HISTORY Type Description Date Medical History Hypertension Medical History Diabetes type 2 Medical History Hyperlipidemia Medical History testicular hypofuction Surgical History No Surgical history information Hospitalization History Arm fracture 1972
--- OUTSIDE RECORDS SUMMARY | 2019-10-06 05:48 | XMS REPORT ---
Author Author Benny PEÑALOZA Organization [facility] Address [address] [place] [address] Care Team Providers Care Hose Wrapper Name Role Phone GERMÁN PEÑALOZA Unavailable PROBLEMS Type Condition ICD9-CM Code [id number] Code Onset Dates Condition S tatus SNOMED Code Problem Hypertension, essential I10 Active 75188458 Problem Morbid obesity due to excess calories E66.01 Active 209331960 Problem Hypertension, benign I10 Active 07864503 Problem Daytime sleepiness R40.0 Active 1 [id number] Problem Controlled type 2 diabetes m ellitus without complication, without long- term current use of insulin E11.9 Active [id number] ALLERGIES No Known Allergies ENCOUNTERS Encounter Location Date Diagnosis [place] [address] [address] [facility] [id number] [address] [place] [phone] May, [place] [address] [address] [facility] [id number] [address] [place] [address] Mar, Localized edema R60.0 ; Cont rolled type 2 diabetes mellitus without complication, without long-term current use of insulin E11.9 and Morbid obesity due to excess calories E66.01 [place] [address] [address] [facility] [id number] [address] [place] [address] Feb, Type 2 diabetes mellitus wit hout complications E11.9 and Edema of both legs R60.0 [place] [address] [address] [facility] [id number] [address] [place] [address] Feb, Type 2 diabetes mellitus wit hout complications E11.9 and Edema of both legs R60.0 [place] [address] [address] [facility] [id number] [address] [place] [phone] Oct, Controlled type 2 diabetes m ellitus without complication, without long-term current use of insulin E11.9 and Localized edema R60.0 [place] [address] [address] [facility] [id number] [address] [place] [address] Sep, Hypertension, essential I10 [place] [address] [address] [facility] [id number] [address] [place] [address] Apr, Controlled type 2 diabetes antonieta gan without complication, without long-term current use of insulin E11.9 [place] [address] [address] [facility] [id number] [address] [place] [address] Feb, Morbid obesity due to excess calories E66.01 [place] [address] [id number] [address] [place] [address] Jan, Hypertension, essential I10 and Morbid obesity due to excess calories E66.01 [place] [address] [address] [facility] [id number] [address] [place] [address] Dec, Controlled type 2 diabetes antonieta gan without complication, without long-term current use of insulin E11.9 ; Morbid obesity due to excess calories E66.01 ; Daytime sleepiness R40.0 and Pain in left knee M25.562 [place] [address] [address] [facility] [id number] [address] [place] [address] Dec, Controlled type 2 diabetes antonieta gan without complication, without long-term current use of insulin E11.9 ; Morbid obesity due to excess calories E66.01 ; Daytime sleepiness R40.0 and Pain in left knee M25.562 [place] [address] [address] [facility] [id number] [address] [place] [address] Jun, Hypertension, benign I10 and Controlled type 2 diabetes mellitus without complication, without long-term current use of insulin E11.9 [place] [address] [id number] [address] [place] [address] Jan, Uncontrolled type 2 diabetes mellitus without complication, without long-term current use of insulin E11.65 and Hypertension, benign I10 [place] [address] [address] [facility] [id number] [address] [place] [address] Jan, Pain in joint, ankle and kaylee t 719.47 ; Diabetes mellitus without mention of complication, type II or unspecified type, not stated as uncontrolled 250.00 and Essential hypertension, benign 401.1 [facility] [address] [id number] [address] [place] [address] Jan, Pain in joint, ankle and kaylee t 719.47 ; Diabetes mellitus without mention of complication, type II or unspecified type, not stated as uncontrolled 250.00 and Essential hypertension, benign 401.1 [facility] [address] [id number] [address] [place] [address] Oct, [facility] [address] [id number] [address] [place] [phone] Oct, [facility] [address] [id number] [address] [place] [phone] Aug, [facility] [address] [id number] [address] [place] [phone] Aug, [facility] [address] [id number] [address] [place] [address] Aug, [facility] [address] [id number] [address] [place] [phone] Aug, [facility] [address] [id number] [address] [place] [phone] Jun, [facility] [address] [id number] [address] [place] [address] Jun, [facility] [address] [id number] [address] [place] [phone] Jun, [facility] [address] [id number] [address] [place] [phone] Jun, [facility] [address] [id number] [address] [place] [phone] May, [facility] [address] [id number] [address] [place] [phone] May, [facility] [address] [id number] [address] [place] [address], [place] [address] Dec, [facility] [address] [id number] [address] [place] [address], [place] [address] Dec, [facility] [address] [id number] [address] [place] [address], [place] [address] Dec, [facility] [address] [id number] [address] [place] [address], [place] [address] Dec, [facility] [address] [id number] [address] [place] [address], [place] [address] November, [facility] [address] [id number] [address] [place] [address], [place] [address] November, [facility] [address] [id number] [address] [place] [address], [place] [address] November, [facility] [address] [id number] [address] [place] [address], [place] [address] November, [facility] [address] [id number] [address] [place] [address], [place] [address] November, [facility] [address] [id number] [address] [place] [address], [place] [address] November, [facility] [address] [id number] [address] [place] [address], [place] [address] November, [facility] [address] [id number] [address] [place] [address], [place] [address] November, [facility] [address] [id number] [address] [place] [address], [place] [address] November, [facility] [address] [id number] [address] [place] [address], [place] [address] November, [facility] [address] [id number] [address] [place] [address], [place] [address] Oct, [facility] [address] [id number] [address] [place] [address], [place] [address] Oct, [facility] [address] [id number] [address] [place] [phone] Oct, [facility] [address] [id number] [address] [place] [phone] Aug, [facility] [address] [id number] [address] [place] [phone] Aug, [facility] [address] [id number] [address] [place] [phone] Jul, [facility] [address] [id number] [address] [place] [address] Jul, [facility] [address] [id number] [address] [place] [address] Jul, [facility] [address] [id number] [address] [place] [phone] Jul, [facility] [address] [id number] [address] [place] [phone] Jun, [facility] [address] [id number] [address] [place] [phone] Jun, [facility] [address] [id number] [address] [place] [phone] Jun, [facility] [address] [id number] [address] [place] [phone] Jun, [facility] [address] [id number] [address] [place] [phone] Jun, [facility] [address] [id number] [address] [place] [address] Jun, [facility] [address] [id number] [address] [place] [address] Jun, IMMUNIZATIONS No Known Immunizations SOCIAL HISTORY Never Assessed REASON FOR VISIT Diabetes PLAN OF CARE VITAL SIGNS Height 73 in 2018-03-04 Weight 456.4 lbs 2018-03-04 Temperature 98.4 degrees Fahrenheit 2018-03-04 Heart Rate 88 bpm 2018-03-04 Respiratory Rate 22 2018-03-04 BMI 60.21 kg/m2 2018-03-04 Blood pressure systolic 146 mmHg 2018-03-04 Blood pressure diastolic 98 mmHg 2018-03-04 MEDICATIONS Medication Instructions Dosage Frequency Start Date End Date Duration S huy Aspirin 325 MG 1 tablet 24h 04 Jun, 2013 Act alvin Lisinopril 40 mg take 1 tablet 24h 02 Aug, 2014 Active Percocet 5-325 MG Orally every 6 hrs 1 tablet as needed 6h 30 Apr, 2017 Active Metoprolol Tartrate 100 MG Orally Twice a day 1 Tablet 12h 20 Dec, 2 014 Active Topamax 25 TAKE ONE TABLET BY MOUTH TWICE A DAY 30 Active Pravastatin Sodium 40 mg Orally Once a day 1 tablet 24h Jan, 30 day(s) Active Amlodipine Besylate 10 MG Orally Once a day 1 tablet 24h Jan 30 day(s) Active GlipiZIDE 5 mg take 1 tablet 12h May, 30 Active Lasix 40 mg Orally Once a day 1 tablet 24h Feb, 30 d ay(s) Active Metformin HCl 1000 MG Orally Twice a day 1 tablet with meals 12h Jan, 30 day(s) Active Pravastatin Sodium 40 TAKE ONE TABLET BY MOUTH DAILY 90 Not-Taking Hydrochlorothiazide 25 MG Orally Once a day 1 tablet 24h Jan, 201 6 Active RESULTS Name Result Date Reference Range A1C (IN HOUSE) 2018-03-04 A1C IN HOUSE 6.9 4.3 - 5.6 % Previous A1c 6.8 Lot [id number] Exp date 09/2019 PROCEDURES Procedure Date Ordered Result Body Site GLYCATED HEMOGLOBIN TEST Mar 04, 2018 INSTRUCTIONS MEDICATIONS ADMINISTERED No Known Medications MEDICAL (GENERAL) HISTORY Type Description Date Medical History Hypertension Medical History Diabetes type 2 Medical History Hyperlipidemia Medical History testicular hypofuction Surgical History No Surgical history information Hospitalization History Arm fracture 1972
--- OUTSIDE RECORDS SUMMARY | 2019-10-06 05:49 | XMS REPORT ---
Author Author Benny PEÑALOZA Organization [facility] Address [address] [place] [address] Care Team Providers Care Post Anesthesia Nurse Name Role Phone GERMÁN PEÑALOZA Unavailable PROBLEMS Type Condition ICD9-CM Code HCI39-TV Code Onset Dates Condition S tatus SNOMED Code Problem Essential hypertension, benign 401.1 Active 3161638 Problem Other testicular hypofunction 257.2 Active 789013580 Problem Other and unspecified hyperlipidemia 272.4 Active 16061264 Problem Pain in joint, ankle and foot 719.47 Active 903350890 Problem Hypertension, essential I10 Active 09967051 Problem Morbid obesity due to excess calories E66.01 Active 769013710 Problem Hypertension, benign I10 Active 74718726 Problem Diabetes mellitus without me ntion of complication, type II or unspecified type, not stated as uncontrolled 250.00 Active 473385105 Problem Daytime sleepiness R40.0 Active 1 40060546307 Problem Controlled type 2 diabetes m ellitus without complication, without long- term current use of insulin E11.9 Active 295365155 ALLERGIES No Known Allergies ENCOUNTERS Encounter Location Date Diagnosis [place] [address] [place] [id number] [place] [phone] Feb, [place] [address] [place] [id number] [address] [place] [phone] Oct, Controlled type 2 diabetes m ellitus without complication, without long-term current use of insulin E11.9 and Localized edema R60.0 [place] [address] [place] [id number] [address] [place] [address] Sep, Hypertension, essential I10 [place] [address] [place] [id number] [address] [place] [phone] Apr, Controlled type 2 diabetes m ellitus without complication, without long-term current use of insulin E11.9 [place] [address] [place] [id number] [address] [place] [address] Feb, Morbid obesity due to excess calories E66.01 [place] [address] [address] [facility] [id number] [address] [place] [id number] Jan, Hypertension, essential I10 and Morbid obesity due to excess calories E66.01 [place] [address] [address] [facility] [id number] [address] [place] [phone] Dec, Controlled type 2 diabetes m malik without complication, without long-term current use of insulin E11.9 ; Morbid obesity due to excess calories E66.01 ; Daytime sleepiness R40.0 and Pain in left knee M25.562 [place] [address] [address] [facility] [id number] [address] [place] [address] Dec, Controlled type 2 diabetes antonieta gan without complication, without long-term current use of insulin E11.9 ; Morbid obesity due to excess calories E66.01 ; Daytime sleepiness R40.0 and Pain in left knee M25.562 [place] [address] [address] [facility] [id number] [address] [place] [address] Jun, Hypertension, benign I10 and Controlled type 2 diabetes mellitus without complication, without long-term current use of insulin E11.9 [place] [address] [address] [facility] [id number] [address] [place] [phone] Jan, Uncontrolled type 2 diabetes mellitus without complication, without long-term current use of insulin E11.65 and Hypertension, benign I10 [place] [address] [address] [facility] [id number] [address] [place] [phone] Jan, Pain in joint, ankle and kaylee t 719.47 ; Diabetes mellitus without mention of complication, type II or unspecified type, not stated as uncontrolled 250.00 and Essential hypertension, benign 401.1 [place] [address] [address] [facility] [id number] [address] [place] [phone] Jan, Pain in joint, ankle and kaylee t 719.47 ; Diabetes mellitus without mention of complication, type II or unspecified type, not stated as uncontrolled 250.00 and Essential hypertension, benign 401.1 [facility] [address] [id number] [address] [place] [address], [place] [address] Oct, [facility] [address] [id number] [address] [place] [address], [place] [address] Oct, [facility] [address] [id number] [address] [place] [address], [place] [address] Aug, [facility] [address] [id number] [address] [place] [address], [place] [address] Aug, [facility] [address] [id number] [address] [place] [address], [place] [address] Aug, [facility] [address] [id number] [address] [place] [address], [place] [address] Aug, [facility] [address] [id number] [address] [place] [address], [place] [address] Jun, [facility] [address] [id number] [address] [place] [address], [place] [address] Jun, [facility] [address] [id number] [address] [place] [address], [place] [address] Jun, [facility] [address] [id number] [address] [place] [address], [place] [address] Jun, [facility] [address] [id number] [address] [place] [address], [place] [address] May, [facility] [address] [id number] [address] [place] [address], [place] [address] May, [facility] [address] [id number] [address] [place] [address], [place] [address] Dec, [facility] [address] [id number] [address] [place] [address], [place] [address] Dec, [facility] [address] [id number] [address] [place] [address], [place] [address] Dec, [facility] [address] [id number] [address] [place] [address], [place] [address] Dec, [facility] [address] [id number] [address] [place] [address], [place] [address] November, [facility] [address] [id number] [address] [place] [address], [place] [address] November, [facility] [address] [id number] [address] [place] [address], [place] [address] November, [facility] [address] [id number] [address] [place] [address], [place] [address] November, [facility] [address] [id number] [address] [place] [address], [place] [address] November, [facility] [address] [id number] [address] [place] [address], [place] [address] November, [facility] [address] [id number] [address] [place] [address], [place] [address] November, [facility] [address] [id number] [address] [place] [address], [place] [address] November, [facility] [address] [id number] [address] [place] [address], [place] [address] November, [facility] [address] [id number] [address] [place] [address], [place] [address] November, [facility] [address] [id number] [address] [place] [address], [place] [address] Oct, [facility] [address] [id number] [address] [place] [address], [place] [address] Oct, [facility] [address] [id number] [address] [place] [address], [place] [address] Oct, [facility] [address] [id number] [address] [place] [address], [place] [address] Aug, [facility] [address] [id number] [address] [place] [address], [place] [address] Aug, [facility] [address] [id number] [address] [place] [phone] Jul, [facility] [address] [id number] [address] [place] [address] Jul, [facility] [address] [id number] [address] [place] [address] Jul, [facility] [address] [id number] [address] [place] [id number] Jul, [facility] [address] [id number] [address] [place] [address] Jun, [facility] [address] [id number] [address] [place] [phone] Jun, [facility] [address] [id number] [address] [place] [phone] Jun, [facility] [address] [id number] [address] [place] [phone] Jun, [facility] [address] [id number] [address] [place] [phone] Jun, [facility] [address] [id number] [address] [place] [address] Jun, [facility] [address] [id number] [address] [place] [phone] Jun, IMMUNIZATIONS No Known Immunizations SOCIAL HISTORY Never Assessed REASON FOR VISIT Diabetes, sores on both legs Can Momin MA PLAN OF CARE VITAL SIGNS Height 73 in 2017-10-31 Weight 455 lbs 2017-10-31 Temperature 97.9 degrees Fahrenheit 2017-10-31 Heart Rate 84 bpm 2017-10-31 Respiratory Rate 20 2017-10-31 BMI 60.02 kg/m2 2017-10-31 Blood pressure systolic 128 mmHg 2017-10-31 Blood pressure diastolic 78 mmHg 2017-10-31 MEDICATIONS Medication Instructions Dosage Frequency Start Date End Date Duration S tatus Triamcinolone Acetonide 0.1 % Externally Twice a day 1 appli cation to affected area 12h 30 Apr, 2017 Not-Taking Topamax 25 TAKE ONE TABLET BY MOUTH TWICE A DAY 30 Active Pravastatin Sodium 40 mg Orally Once a day 1 tablet 24h Jan, 30 day(s) Active Hydrochlorothiazide 25 TAKE ONE TABLET BY MOUTH DAILY 90 Active Topamax 25 MG Orally Twice a day 1 tablet 12h Dec, 3 0 days Active Lisinopril 40 TAKE ONE TABLET BY MOUTH DAILY 30 Not-Taking Amlodipine Besylate 10 TAKE ONE TABLET BY MOUTH DAILY 30 Active Metformin HCl 1000 MG Orally Twice a day 1 tablet with meals 12h Jan, 30 day(s) Active Amlodipine Besylate 10 MG Orally Once a day 1 tablet 24h Jan 30 day(s) Active Hydrochlorothiazide 25 MG Orally Once a day 1 tablet 24h Jan 30 day(s) Active Lisinopril 40 mg take 1 tablet 24h Aug, Active Metoprolol Tartrate 100 MG Orally Twice a day 1 Tablet 12h 20 Dec, 2 014 Active Metformin HCl 1,000 TAKE ONE TABLET BY MOUTH TWICE A DAY WITH ME ALS 30 Active GlipiZIDE 5 mg take 1 tablet 12h 14 May, 2014 30 Active Aspirin EC 325 TAKE ONE TABLET BY MOUTH DAILY 30 Active GlipiZIDE 5 TAKE ONE TABLET BY MOUTH TWICE A DAY 15 Not-Taking Aspirin 325 MG 1 tablet 24h Jun, Act alvin Pravastatin Sodium 40 TAKE ONE TABLET BY MOUTH DAILY 30 Active Metoprolol Tartrate 100 TAKE ONE TABLET BY MOUTH TWICE A DAY 30 Active Percocet 5-325 MG Orally every 6 hrs 1 tablet as needed 6h 30 Apr, 2017 Active RESULTS Name Result Date Reference Range A1C (IN HOUSE) A1C IN HOUSE 6.8 4.3 - 5.6 % Previous A1c 7.4 Lot [id number] Exp date 05/2019 PROCEDURES Procedure Date Ordered Result Body Site GLYCATED HEMOGLOBIN TEST October 31, 2017 INSTRUCTIONS MEDICATIONS ADMINISTERED No Known Medications MEDICAL (GENERAL) HISTORY Type Description Date Medical History Hypertension Medical History Diabetes type 2 Medical History Hyperlipidemia Medical History testicular hypofuction Hospitalization History Arm fracture 1972
--- OUTSIDE RECORDS SUMMARY | 2019-10-06 05:49 | XMS REPORT ---
Author Author Benny PEÑALOZA Organization [facility] Address [address] [place] [address] Care Team Providers Care Computer Typesetter Name Role Phone GERMÁN PEÑALOZA Unavailable PROBLEMS Type Condition ICD9-CM Code [id number] Code Onset Dates Condition S tatus SNOMED Code Problem Diabetes mellitus without me ntion of complication, type II or unspecified type, not stated as uncontrolled 250.00 Active 999866492 Problem Other and unspecified hyperlipidemia 272.4 Active 16019416 Problem Essential hypertension, benign 401.1 Active 8485771 Problem Other testicular hypofunction 257.2 Active 115198777 Problem Hypertension, essential I10 Active 67544174 Problem Morbid obesity due to excess calories E66.01 Active 746562634 Problem Controlled type 2 diabetes m ellitus without complication, without long- term current use of insulin E11.9 Active 055826041 Problem Pain in joint, ankle and foot 719.47 Active 296315617 Problem Daytime sleepiness R40.0 Active 1 17294076323 Problem Hypertension, benign I10 Active 97878080 ALLERGIES Substance Reaction Event Type Date Status N.K.D.A. Unknown Non Drug Allergy Jun, Unknown SOCIAL HISTORY No smoking Hx information available PLAN OF CARE VITAL SIGNS Height 73 in 2016-07-24 Weight 452 lbs 2016-07-24 Temperature 98.3 degrees Fahrenheit 2016-07-24 Heart Rate 88 bpm 2016-07-24 Respiratory Rate 18 2016-07-24 BMI 59.63 kg/m2 2016-07-24 Blood pressure systolic 180 mmHg 2016-07-24 Blood pressure diastolic 110 mmHg 2016-07-24 MEDICATIONS Medication Instructions Dosage Frequency Start Date End Date Duration S tatus Hydrochlorothiazide 25 MG Orally Once a day 1 tablet 24h 29 Jan 30 day(s) Active Metoprolol Tartrate 100 MG Orally Twice a day 1 Tablet 12h 20 Dec, 2 014 Active Metformin HCl 1000 MG Orally Twice a day 1 tablet with meals 12h 22 Jan, 2015 30 day(s) Active Pravastatin Sodium 40 mg Orally Once a day 1 tablet 24h Jan, 30 day(s) Active GlipiZIDE 5 mg take 1 tablet 12h May, Active Aspirin 325 MG 1 tablet 24h Jun, Act alvin Lisinopril 40 mg take 1 tablet 24h Aug, Active RESULTS Name Result Date Reference Range A1C (IN HOUSE) 2016-07-24 A1C IN HOUSE 7.2 4.3 - 5.6 % Previous A1c 8.0 Lot [id number] Exp date PROCEDURES Procedure Date Ordered Related Diagnosis Body Site GLYCATED HEMOGLOBIN TEST Jul 24, 2016 Office Visit, Est Pt., Level 3 Jul 24, 2016 IMMUNIZATIONS No Known Immunizations
--- OUTSIDE RECORDS SUMMARY | 2019-10-06 05:49 | XMS REPORT ---
Author Benny [facility] eClinical[employer] Address Unknown Phone Unavailable Care Team Providers Care China Painter Name Role Phone GERMÁN PEÑALOZA CP Unavailable Allergies, Adverse Reactions, Alerts Substance Reaction Event Type N.K.D.A. Info Not Available Non Drug Allergy Problems Problem Type Condition Code Onset Dates Condition Statu s Problem Other and unspecified hyperlipidemia 272.4 Active Problem Essential hypertension, benign 401.1 Active Problem Pain in joint, ankle and foot 719.47 Active Assessment Uncontrolled type 2 diabetes mellitus without complication, without long-term current use of insulin E11.65 Active Assessment Hypertension, benign I10 Active Problem Diabetes mellitus without me ntion of complication, type II or unspecified type, not stated as uncontrolled 250.00 Active Problem Other testicular hypofunction 257.2 Active Medications Medication Code System Code Instructions Start Date End Date Status Dosage GlipiZIDE [facility] [address]-16 5 mg 2 times a day Jun 12, 2014 take 1 tablet Metformin HCl [facility] [address]-65 1000 MG Orally Twice a day February 17, 2015 1 tablet with meals [place] [facility] [address]-95 5-325 MG 3 times a day January 16, 2014 1 tablet as needed Aspirin [facility] [address]-72 325 MG Once a day Jul 02, 2013 1 tablet Lisinopril [facility] [address]-03 40 mg Once a day Aug 31, 2014 take 1 tablet Pravastatin Sodium [facility] [address]-46 40 mg Orally Once a day January 1 tablet Metoprolol Tartrate [facility] [address]-42 50 mg Twice a day January 16 14 1 Tablet Hydrochlorothiazide [facility] [address]-77 25 MG Orally Once a day January 282015 1 tablet Procedures Procedure Coding System Code Date Office Visit, Est Pt., Level 3 CPT-4 18437 J [id number] GLYCATED HEMOGLOBIN TEST CPT-4 78541 January Vital Signs Date/Time: February 25, 2016 Cardiac Monitoring Heart Rate 94 bpm Weight 447 lbs Height 73 in BMI 58.97 Index Blood Pressure Diastolic 112 mmHg Blood Pressure Systolic 182 mmHg Results No Known Results Summary Purpose eClinicalWorks Submission
--- OUTSIDE RECORDS SUMMARY | 2019-10-06 05:49 | XMS REPORT ---
Author Author Benny PEÑALOZA Organization [facility] Address [address] [place] [address] Care Team Providers Care Construction Representative Name Role Phone GERMÁN PEÑALOZA Unavailable PROBLEMS Type Condition ICD9-CM Code ZNV65-ME Code Onset Dates Condition S tatus SNOMED Code Problem Essential hypertension, benign 401.1 Active 0099049 Problem Other testicular hypofunction 257.2 Active 001087626 Problem Other and unspecified hyperlipidemia 272.4 Active 35634489 Problem Pain in joint, ankle and foot 719.47 Active 655235005 Problem Hypertension, essential I10 Active 42583803 Problem Morbid obesity due to excess calories E66.01 Active 257561802 Problem Hypertension, benign I10 Active 20214585 Problem Diabetes mellitus without me ntion of complication, type II or unspecified type, not stated as uncontrolled 250.00 Active 384744599 Problem Daytime sleepiness R40.0 Active 1 95407074752 Problem Controlled type 2 diabetes m ellitus without complication, without long- term current use of insulin E11.9 Active 402804135 ALLERGIES No Information ENCOUNTERS Encounter Location Date Diagnosis [place] [address] [place] [id number] [place] [phone] Feb, [place] [address] [place] [id number] [place] [address] Oct, Controlled type 2 diabetes m ellitus without complication, without long-term current use of insulin E11.9 and Localized edema R60.0 [place] [address] [place] [id number] [place] [address] Sep, Hypertension, essential I10 [place] [address] [place] [id number] [address] [place] [address] Apr, Controlled type 2 diabetes m ellitus without complication, without long-term current use of insulin E11.9 [place] [id number] [place] [address] Feb, Morbid obesity due to excess calories E66.01 [place] [address] [facility] [id number] [address] [place] [address] Jan, Hypertension, essential I10 and Morbid obesity due to excess calories E66.01 [place] [address] [facility] [id number] [address] [place] [address] Dec, Controlled type 2 diabetes m malik without complication, without long-term current use of insulin E11.9 ; Morbid obesity due to excess calories E66.01 ; Daytime sleepiness R40.0 and Pain in left knee M25.562 [place] [address] [facility] [id number] [address] [place] [address] Dec, Controlled type 2 diabetes m mlaik without complication, without long-term current use of insulin E11.9 ; Morbid obesity due to excess calories E66.01 ; Daytime sleepiness R40.0 and Pain in left knee M25.562 [place] [address] [facility] [id number] [address] [place] [address] Jun, Hypertension, benign I10 and Controlled type 2 diabetes mellitus without complication, without long-term current use of insulin E11.9 [place] [address] [facility] [id number] [address] [place] [address] Jan, Uncontrolled type 2 diabetes mellitus without complication, without long-term current use of insulin E11.65 and Hypertension, benign I10 [place] [address] [facility] [id number] [address] [place] [address] Jan, Pain in joint, ankle and kaylee t 719.47 ; Diabetes mellitus without mention of complication, type II or unspecified type, not stated as uncontrolled 250.00 and Essential hypertension, benign 401.1 [place] [address] [facility] [id number] [address] [place] [phone] Jan, Pain in joint, ankle and kaylee t 719.47 ; Diabetes mellitus without mention of complication, type II or unspecified type, not stated as uncontrolled 250.00 and Essential hypertension, benign 401.1 [facility] [address] [id number] [address] [place] [address], [place] [address] Oct, [facility] [address] [id number] [address] [place] [address], [place] [address] Oct, [facility] [address] [id number] [address] [place] [address], [place] [address] Aug, [facility] [address] [id number] [address] [place] [address], [place] [address] Aug, [facility] [address] [id number] [address] [place] [address], [place] [address] Aug, [facility] [address] [id number] [address] [place] [address], [place] [address] Aug, [facility] [address] [id number] [address] [place] [address], [place] [address] Jun, [facility] [address] [id number] [address] [place] [address], [place] [address] Jun, [facility] [address] [id number] [address] [place] [address], [place] [address] Jun, [facility] [address] [id number] [address] [place] [address], [place] [address] Jun, [facility] [address] [id number] [address] [place] [address], [place] [address] May, [facility] [address] [id number] [address] [place] [address], [place] [address] May, [facility] [address] [id number] [address] [place] [address], [place] [address] Dec, [facility] [address] [id number] [address] [place] [address], [place] [address] Dec, [facility] [address] [id number] [address] [place] [address], [place] [address] Dec, [facility] [address] [id number] [address] [place] [address], [place] [address] Dec, [facility] [address] [id number] [address] [place] [address], [place] [address] November, [facility] [address] [id number] [address] [place] [address], [place] [address] November, [facility] [address] [id number] [address] [place] [address], [place] [address] November, [facility] [address] [id number] [address] [place] [address], [place] [address] November, [facility] [address] [id number] [address] [place] [address], [place] [address] November, [facility] [address] [id number] [address] [place] [address], [place] [address] November, [facility] [address] [id number] [address] [place] [address], [place] [address] November, [facility] [address] [id number] [address] [place] [address], [place] [address] November, [facility] [address] [id number] [address] [place] [address], [place] [address] November, [facility] [address] [id number] [address] [place] [address], [place] [address] November, [facility] [address] [id number] [address] [place] [address], [place] [address] Oct, [facility] [address] [id number] [address] [place] [address], [place] [address] Oct, [facility] [address] [id number] [address] [place] [address], [place] [address] Oct, [facility] [address] [id number] [address] [place] [address], [place] [address] Aug, [facility] [address] [id number] [address] [place] [address], [place] [address] Aug, [facility] [address] [id number] [address] [place] [address] Jul, [facility] [address] [id number] [address] [place] [address] Jul, [facility] [address] [id number] [address] [place] [address] Jul, [facility] [address] [id number] [address] [place] [address] Jul, [facility] [address] [id number] [address] [place] [address] Jun, [facility] [address] [id number] [address] [place] [address] Jun, [facility] [address] [id number] [address] [place] [address] Jun, [facility] [address] [id number] [address] [place] [address] Jun, [facility] [address] [id number] [address] [place] [address] Jun, [facility] [address] [id number] [address] [place] [address] Jun, [facility] [address] [id number] [address] [place] [address] Jun, IMMUNIZATIONS No Known Immunizations SOCIAL HISTORY Never Assessed REASON FOR VISIT Refill request PLAN OF CARE VITAL SIGNS MEDICATIONS Medication Instructions Dosage Frequency Start Date End Date Duration S huy Topamax 25 MG Orally Twice a day 1 tablet 12h 19 Dec, 2016 3 0 days Active RESULTS No Results PROCEDURES No Known procedures INSTRUCTIONS MEDICATIONS ADMINISTERED No Known Medications MEDICAL (GENERAL) HISTORY Type Description Date Medical History Hypertension Medical History Diabetes type 2 Medical History Hyperlipidemia Medical History testicular hypofuction Hospitalization History Arm fracture 1972
--- OUTSIDE RECORDS SUMMARY | 2019-10-06 05:49 | XMS REPORT ---
Author Author Benny PEÑALOZA Organization [facility] Address [address] [place] [address] Care Team Providers Care Data Collection Associate Name Role Phone GERMÁN PEÑALOZA Unavailable PROBLEMS Type Condition ICD9-CM Code TNG48-SN Code Onset Dates Condition S tatus SNOMED Code Problem Essential hypertension, benign 401.1 Active 1603881 Problem Other testicular hypofunction 257.2 Active 439115245 Problem Other and unspecified hyperlipidemia 272.4 Active 16493713 Problem Pain in joint, ankle and foot 719.47 Active 600262834 Problem Hypertension, essential I10 Active 91707764 Problem Morbid obesity due to excess calories E66.01 Active 343354859 Problem Hypertension, benign I10 Active 10065784 Problem Diabetes mellitus without me ntion of complication, type II or unspecified type, not stated as uncontrolled 250.00 Active 158816142 Problem Daytime sleepiness R40.0 Active 1 60111165912 Problem Controlled type 2 diabetes m ellitus without complication, without long- term current use of insulin E11.9 Active 394529374 ALLERGIES No Known Allergies ENCOUNTERS Encounter Location Date Diagnosis [place] [address] [place] [id number] [place] [id number] Feb, [place] [address] [place] [id number] [place] [address] Oct, Controlled type 2 diabetes m ellitus without complication, without long-term current use of insulin E11.9 and Localized edema R60.0 [place] [address] [place] [id number] [place] [address] Sep, Hypertension, essential I10 [place] [address] [place] [id number] [address] [place] [id number] Apr, Controlled type 2 diabetes m ellitus without complication, without long-term current use of insulin E11.9 [place] [address] [place] [id number] [address] [place] [address] Feb, Morbid obesity due to excess calories E66.01 [place] [address] [facility] [id number] [address] [place] [address] Jan, Hypertension, essential I10 and Morbid obesity due to excess calories E66.01 [place] [address] [facility] [id number] [address] [place] [address] Dec, Controlled type 2 diabetes m malik without complication, without long-term current use of insulin E11.9 ; Morbid obesity due to excess calories E66.01 ; Daytime sleepiness R40.0 and Pain in left knee M25.562 [place] [address] [facility] [id number] [address] [place] [address] Dec, Controlled type 2 diabetes [place] without complication, without long-term current use of insulin E11.9 ; Morbid obesity due to excess calories E66.01 ; Daytime sleepiness R40.0 and Pain in left knee M25.562 [place] [address] [facility] [id number] [address] [place] [address] Jun, Hypertension, benign I10 and Controlled type 2 diabetes mellitus without complication, without long-term current use of insulin E11.9 [place] [address] [facility] [id number] [address] [place] [id number] Jan, Uncontrolled type 2 diabetes mellitus without complication, without long-term current use of insulin E11.65 and Hypertension, benign I10 [place] [address] [facility] [id number] [address] [place] [address] Jan, Pain in joint, ankle and kaylee t 719.47 ; Diabetes mellitus without mention of complication, type II or unspecified type, not stated as uncontrolled 250.00 and Essential hypertension, benign 401.1 [place] [address] [facility] [id number] [address] [place] [address] Jan, Pain in joint, ankle and kaylee t 719.47 ; Diabetes mellitus without mention of complication, type II or unspecified type, not stated as uncontrolled 250.00 and Essential hypertension, benign 401.1 [facility] [address] [id number] [address] [place] [address], [place] [address] Oct, [facility] [address] [id number] [address] [place] [address], [place] [address] Oct, [facility] [address] [id number] [address] [place] [address], [place] [address] Aug, [facility] [address] [id number] [address] [place] [address], [place] [address] Aug, [facility] [address] [id number] [address] [place] [address], [place] [address] Aug, [facility] [address] [id number] [address] [place] [address], [place] [address] Aug, [facility] [address] [id number] [address] [place] [address], [place] [address] Jun, [facility] [address] [id number] [address] [place] [address], [place] [address] Jun, [facility] [address] [id number] [address] [place] [address], [place] [address] Jun, [facility] [address] [id number] [address] [place] [address], [place] [address] Jun, [facility] [address] [id number] [address] [place] [address], [place] [address] May, [facility] [address] [id number] [address] [place] [address], [place] [address] May, [facility] [address] [id number] [address] [place] [address], [place] [address] Dec, [facility] [address] [id number] [address] [place] [address], [place] [address] Dec, [facility] [address] [id number] [address] [place] [address], [place] [address] Dec, [facility] [address] [id number] [address] [place] [address], [place] [address] Dec, [facility] [address] [id number] [address] [place] [address], [place] [address] November, [facility] [address] [id number] [address] [place] [address], [place] [address] November, [facility] [address] [id number] [address] [place] [address], [place] [address] November, [facility] [address] [id number] [address] [place] [address], [place] [address] November, [facility] [address] [id number] [address] [place] [address], [place] [address] November, [facility] [address] [id number] [address] [place] [address], [place] [address] November, [facility] [address] [id number] [address] [place] [address], [place] [address] November, [facility] [address] [id number] [address] [place] [address], [place] [address] November, [facility] [address] [id number] [address] [place] [address], [place] [address] November, [facility] [address] [id number] [address] [place] [address], [place] [address] November, [facility] [address] [id number] [address] [place] [address], [place] [address] Oct, [facility] [address] [id number] [address] [place] [address], [place] [address] Oct, [facility] [address] [id number] [address] [place] [address], [place] [address] Oct, [facility] [address] [id number] [address] [place] [address], [place] [address] Aug, [facility] [address] [id number] [address] [place] [address], [place] [address] Aug, [facility] [address] [id number] [address] [place] [address] Jul, [facility] [address] [id number] [address] [place] [address] Jul, [facility] [address] [id number] [address] [place] [address] Jul, [facility] [address] [id number] [address] [place] [address] Jul, [facility] [address] [id number] [address] [place] [address] Jun, [facility] [address] [id number] [address] [place] [address] Jun, [facility] [address] [id number] [address] [place] [address] Jun, [facility] [address] [id number] [address] [place] [address] Jun, [facility] [address] [id number] [address] [place] [address] Jun, [facility] [address] [id number] [address] [place] [address] Jun, [facility] [address] [id number] [address] [place] [phone] Jun, IMMUNIZATIONS No Known Immunizations SOCIAL HISTORY Never Assessed REASON FOR VISIT hypertension/diabetes/weight loss, Decreased topamax to 50 mg at night d/t bloa ting and not feeling well. Reports fell last week and maybe some dizziness. Nissa Vu PLAN OF CARE Activity Details Follow Up 2 Months Reason:dm2 3 mo. eckup VITAL SIGNS Height 73 in 2017-03-26 Weight 455.0 lbs 2017-03-26 Temperature 97.9 degrees Fahrenheit 2017-03-26 Heart Rate 72 bpm 2017-03-26 Respiratory Rate 20 2017-03-26 BMI 60.02 kg/m2 2017-03-26 Blood pressure systolic 170 mmHg 2017-03-26 Blood pressure diastolic 92 mmHg 2017-03-26 MEDICATIONS Medication Instructions Dosage Frequency Start Date End Date Duration [place] Hydrochlorothiazide 25 MG Orally Once a day 1 tablet 24h Jan 30 day(s) Active Metoprolol Tartrate 100 MG Orally Twice a day 1 Tablet 12h 20 Dec, 014 Active Percocet 5-325 MG Orally every 6 hrs 1 tablet as needed 6h Feb, Active Aspirin 325 MG 1 tablet 24h Jun, Act alvin Topamax 50 mg Orally Once a day in PM 1 tablet Dec, Active Amlodipine Besylate 10 Orally Once a day 1 tablet 24h 30 Active GlipiZIDE 5 mg take 1 tablet 12h May, Active Metformin HCl 1000 MG Orally Twice a day 1 tablet with meals 12h Jan, 30 day(s) Active Amlodipine Besylate 10 MG Orally Once a day 1 tablet 24h 24 Jan 30 day(s) Active Pravastatin Sodium 40 mg Orally Once a day 1 tablet 24h Jan, 30 day(s) Active Lisinopril 40 mg take 1 tablet 24h Aug, Active RESULTS No Results PROCEDURES No Known procedures INSTRUCTIONS MEDICATIONS ADMINISTERED No Known Medications MEDICAL (GENERAL) HISTORY Type Description Date Medical History Hypertension Medical History Diabetes type 2 Medical History Hyperlipidemia Medical History testicular hypofuction Hospitalization History Arm fracture 1971
--- OUTSIDE RECORDS SUMMARY | 2019-10-06 05:49 | XMS REPORT | Continuity of Care Document ---
Author Organization Unknown Address Unknown Phone Unavailable Allergies Active Description Code Type Severity Reaction Onset Reported/Identified Relationship to Patient Clinical Status Yes NO KNOWN DRUG ALLERGIES UNKNOWN UNKNOWN Yes No Known Drug Allergies [id number] Drug Allergy Unknown N/A 08/15/2019 Medications Medication Packaging Start Date St op Date Route Dosage Sig ASPIRIN 81MG CHEWABLE TAB 81 MG (BABY ASPI RIN) MG 08/15/2019 08/15/2019 ONCE&0708 RIVAROXABAN TAB 10 MG (XARELTO) MG 08/15/2019 08/21/2019 Daily&0900 Problems Date Dx Coded Attending Type Code Diagnosis Diagnosed By 07/02/2013 LIAS CHILDS MD 250.0 0 DIABETES II CONTROLLED (UNCOMPLICATED) 07/02/2013 LISA CHILDS MD 272.4 HYPERLIPIDEMIA 07/02/2013 LISA CHILDS MD 401.1 HYPERTENSION, BENIGN ESSENTIAL 07/02/2013 BRADEN FERNANDEZ DO 250.00 DIABETES II CONTROLLED (UNCOMPLICATED) 07/02/2013 BRADEN FERNANDEZ DO 272.4 HYPERLIPIDEMIA 07/02/2013 BRADEN FERNANDEZ DO 401.1 HYPERTENSION, BENIGN ESSENTIAL 07/02/2013 LISA CHILDS MD 250.0 0 DIABETES II CONTROLLED (UNCOMPLICATED) 07/02/2013 LISA CHILDS MD 272.4 HYPERLIPIDEMIA 07/02/2013 LISA CHILDS MD 401.1 HYPERTENSION, BENIGN ESSENTIAL 07/02/2013 GERMÁN PEÑALOZA APRN 250.00 DIABETES II CONTROLLED (UNCOMPLICATED) 07/02/2013 GERMÁN PEÑALOZA APRN 27 2.4 HYPERLIPIDEMIA 07/02/2013 GERMÁN PEÑALOZA APRN 40 1.1 HYPERTENSION, BENIGN ESSENTIAL 07/02/2013 GERMÁN PEÑALOZA APRN 250.00 DIABETES II CONTROLLED (UNCOMPLICATED) 07/02/2013 GERMÁN PEÑALOZA APRN 27 2.4 HYPERLIPIDEMIA 07/02/2013 GERMÁN PEÑALOZA APRN 40 1.1 HYPERTENSION, BENIGN ESSENTIAL 07/02/2013 BRADEN FERNANDEZ DO K 250.00 DIABETES II CONTROLLED (UNCOMPLICATED) 07/02/2013 FERNANDEZ DO, BRADEN K 272.4 HYPERLIPIDEMIA 07/02/2013 FERNANDEZ DO, BRADEN K 401.1 HYPERTENSION, BENIGN ESSENTIAL 07/02/2013 FERNANDEZ DO, BRADEN K 250.00 DIABETES II CONTROLLED (UNCOMPLICATED) 07/02/2013 FERNANDEZ DO, BRADEN K 272.4 HYPERLIPIDEMIA 07/02/2013 FERNANDEZ DO, BRADEN K 401.1 HYPERTENSION, BENIGN ESSENTIAL 08/27/2013 FERNANDEZ DO, BRADEN K 257.2 OTHER TESTICULAR HYPOFUNCTION 08/27/2013 LISA CHILDS MD 257.2 OTHER TESTICULAR HYPOFUNCTION 08/27/2013 GERMÁN PEÑALOZA APRN T 25 7.2 OTHER TESTICULAR HYPOFUNCTION 08/27/2013 GERMÁN PEÑALOZA APRN 25 7.2 OTHER TESTICULAR HYPOFUNCTION 08/27/2013 FERNANDEZ DO, BRADEN K 257.2 OTHER TESTICULAR HYPOFUNCTION 08/27/2013 FERNANDEZ DO, BRADEN K 257.2 OTHER TESTICULAR HYPOFUNCTION 10/29/2013 GERMÁN PEÑALOZA APRN T 719.47 PAIN- FOOT 10/29/2013 GERMÁN PEÑALOZA APRN 719.47 PAIN- FOOT 10/29/2013 FERNANDEZ DO, BRADEN K 719.47 PAIN- FOOT 10/29/2013 FERNANDEZ DO, BRADEN K 719.47 PAIN- FOOT 08/15/2019 LEISURE, LYNIETA W 786.5 CHEST PAIN 08/15/2019 LEISURE, LYNIETA W R07.9 CHEST PAIN, UNSPECIFIED 08/15/2019 LEISURE, LYNIETA W 786.5 CHEST PAIN 08/15/2019 LEISURE, LYNIETA W R07.9 CHEST PAIN, UNSPECIFIED 08/15/2019 LEISURE, LYNIETA W 427.31 ATRIAL FIBRILLATION 08/15/2019 LEISURE, LYNIETA W 786.5 CHEST PAIN 08/15/2019 LEISURE, LYNIETA W I48.91 UNSPECIFIED ATRIAL FIBRILLATION 08/15/2019 LEISURE, LYNIETA W R07.9 CHEST PAIN, UNSPECIFIED 08/15/2019 LEISURE, LYNIETA W 427.31 ATRIAL FIBRILLATION 08/15/2019 LEISURE, LYNIETA W 786.5 CHEST PAIN 08/15/2019 LEISURE, LYNIETA W I48.91 UNSPECIFIED ATRIAL FIBRILLATION 08/15/2019 LEISURE, LYNIETA W R07.9 CHEST PAIN, UNSPECIFIED 08/15/2019 LEISURE, LYNIETA W 427.31 ATRIAL FIBRILLATION 08/15/2019 LEISURE, LYNIETA W 786.5 CHEST PAIN 08/15/2019 LEISURE, LYNIETA W I48.91 UNSPECIFIED ATRIAL FIBRILLATION 08/15/2019 LEISURE, LYNIETA W R07.9 CHEST PAIN, UNSPECIFIED 08/15/2019 LEISURE, LYNIETA W 401.9 UNSPECIFIED ESSENTIAL HYPERTENSION 08/15/2019 LEISURE, LYNIETA W 427.31 ATRIAL FIBRILLATION 08/15/2019 LEISURE, LYNIETA W 786.5 CHEST PAIN 08/15/2019 LEISURE, LYNIETA W I10 ESSENTIAL (PRIMARY) HYPERTENSION 08/15/2019 LEISURE, LYNIETA W I48.91 UNSPECIFIED ATRIAL FIBRILLATION 08/15/2019 LEISURE, LYNIETA W R07.9 CHEST PAIN, UNSPECIFIED 08/15/2019 LEISURE, LYNIETA W 401.9 UNSPECIFIED ESSENTIAL HYPERTENSION 08/15/2019 LEISURE, LYNIETA W 427.31 ATRIAL FIBRILLATION 08/15/2019 LEISURE, ROSALVAA W 786.5 CHEST PAIN 08/15/2019 LEISURE, LYNRAJEEVA W I10 ESSENTIAL (PRIMARY) HYPERTENSION 08/15/2019 LEISURE, ROSALVAA W I48.91 UNSPECIFIED ATRIAL FIBRILLATION 08/15/2019 LEISURE, ROSALVAA W R07.9 CHEST PAIN, UNSPECIFIED 08/15/2019 LEISURE, LYNRAJEEVA W 278.00 OBESITY, UNSPECIFIED 08/15/2019 LEISURE, ROSALVAA W 401.9 UNSPECIFIED ESSENTIAL HYPERTENSION 08/15/2019 LEISURE, LYNRAJEEVA W 427.31 ATRIAL FIBRILLATION 08/15/2019 LEISURE, ROSALVAA W 786.5 CHEST PAIN 08/15/2019 LEISURE, ROSALVAA W E66.9 OBESITY, UNSPECIFIED 08/15/2019 LEISURE, LYNRAJEEVA W I10 ESSENTIAL (PRIMARY) HYPERTENSION 08/15/2019 LEISURE, DARLINERAJEEVA W I48.91 UNSPECIFIED ATRIAL FIBRILLATION 08/15/2019 LEISURE, LYNIETA W R07.9 CHEST PAIN, UNSPECIFIED 08/15/2019 LEISURE, LYNIETA W 250.00 DIABETES MELLITUS WITHOUT MENTION OF COMPLICATION, TYPE II OR UNSPECIFIED TYPE, NOT STATED UNCONTROLLED 08/15/2019 LEISURE, LYNIETA W 278.00 OBESITY, UNSPECIFIED 08/15/2019 LEISURE, LYNRAJEEVA W 401.9 UNSPECIFIED ESSENTIAL HYPERTENSION 08/15/2019 LEISURE, LYNIETA W 427.31 ATRIAL FIBRILLATION 08/15/2019 LEISURE, LYNIETA W 786.5 CHEST PAIN 08/15/2019 LEISURE, LYNIETA W E11.9 TYPE 2 DIABETES MELLITUS WITHOUT COMPLICATIONS 08/15/2019 LEISURE, LYNIETA W E66.9 OBESITY, UNSPECIFIED 08/15/2019 LEISURE, LYNIETA W I10 ESSENTIAL (PRIMARY) HYPERTENSION 08/15/2019 LEISURE, LYNIETA W I48.91 UNSPECIFIED ATRIAL FIBRILLATION 08/15/2019 LEISURE, LYNRAJEEVA W R07.9 CHEST PAIN, UNSPECIFIED 08/15/2019 LEISURE, LYNRAJEEVA W 250.00 DIABETES MELLITUS WITHOUT MENTION OF COMPLICATION, TYPE II OR UNSPECIFIED TYPE, NOT STATED UNCONTROLLED 08/15/2019 LEISURE, LYNIETA W 278.00 OBESITY, UNSPECIFIED 08/15/2019 LEISURE, LYNIETA W 401.9 UNSPECIFIED ESSENTIAL HYPERTENSION 08/15/2019 LEISURE, LYNIETA W 427.31 ATRIAL FIBRILLATION 08/15/2019 LEISURE, LYNRAJEEVA W 786.5 CHEST PAIN 08/15/2019 LEISURE, LYNRAJEEVA W E11.9 TYPE 2 DIABETES MELLITUS WITHOUT COMPLICATIONS 08/15/2019 LEISURE, LYNRAJEEVA W E66.9 OBESITY, UNSPECIFIED 08/15/2019 LEISURE, LYNIETA W I10 ESSENTIAL (PRIMARY) HYPERTENSION 08/15/2019 LEISURE, ROSALVAA W I48.91 UNSPECIFIED ATRIAL FIBRILLATION 08/15/2019 LEISURE, ROSALVAA W R07.9 CHEST PAIN, UNSPECIFIED 08/15/2019 LEISURE, ROSALVAA W 250.00 DIABETES MELLITUS WITHOUT MENTION OF COMPLICATION, TYPE II OR UNSPECIFIED TYPE, NOT STATED UNCONTROLLED 08/15/2019 LEISURE, ROSALVAA W 272.4 OTHER AND UNSPECIFIED HYPERLIPIDEMIA 08/15/2019 LEISURE, LYNRAJEEVA W 278.00 OBESITY, UNSPECIFIED 08/15/2019 LEISURE, LYNIETA W 401.9 UNSPECIFIED ESSENTIAL HYPERTENSION 08/15/2019 LEISURE, LYNIETA W 427.31 ATRIAL FIBRILLATION 08/15/2019 LEISURE, LYNIETA W 786.5 CHEST PAIN 08/15/2019 LEISURE, LYNIETA W E11.9 TYPE 2 DIABETES MELLITUS WITHOUT COMPLICATIONS 08/15/2019 LEISURE, LYNIETA W E66.9 OBESITY, UNSPECIFIED 08/15/2019 LEISURE, LYNIETA W E78.5 HYPERLIPIDEMIA, UNSPECIFIED 08/15/2019 LEISURE, LYNIETA W I10 ESSENTIAL (PRIMARY) HYPERTENSION 08/15/2019 LEISURE, LYNIETA W I48.91 UNSPECIFIED ATRIAL FIBRILLATION 08/15/2019 LEISURE, DESIRAE W R07.9 CHEST PAIN, UNSPECIFIED 08/15/2019 LEISURE, DESIRAE W 250.00 DIABETES MELLITUS WITHOUT MENTION OF COMPLICATION, TYPE II OR UNSPECIFIED TYPE, NOT STATED UNCONTROLLED 08/15/2019 LEISURE, DESIRAE W 272.4 OTHER AND UNSPECIFIED HYPERLIPIDEMIA 08/15/2019 LEISURE, ROSALVAA W 278.00 OBESITY, UNSPECIFIED 08/15/2019 LEISURE, ROSALVAA W 401.9 UNSPECIFIED ESSENTIAL HYPERTENSION 08/15/2019 LEISURE, LYNRAJEVEA W 427.31 ATRIAL FIBRILLATION 08/15/2019 LEISURE, LYNRAJEEVA W 786.09 OTHER DYSPNEA AND RESPIRATORY ABNORMALITY 08/15/2019 LEISURE, ROSALVAA W 786.5 CHEST PAIN 08/15/2019 LEISURE, ROSALVAA W E11.9 TYPE 2 DIABETES MELLITUS WITHOUT COMPLICATIONS 08/15/2019 LEISURE, DESIRAE W E66.9 OBESITY, UNSPECIFIED 08/15/2019 LEISURE, DESIRAE W E78.5 HYPERLIPIDEMIA, UNSPECIFIED 08/15/2019 LEISURE, DARLINESERENITY W I10 ESSENTIAL (PRIMARY) HYPERTENSION 08/15/2019 LEISURE, DESIRAE W I48.91 UNSPECIFIED ATRIAL FIBRILLATION 08/15/2019 LEISURE, ROSALVAA W R06.02 SHORTNESS OF BREATH 08/15/2019 LEISURE, ROSALVAA W R07.9 CHEST PAIN, UNSPECIFIED 08/15/2019 LEISURE, DESIRAE W 250.00 DIABETES MELLITUS WITHOUT MENTION OF COMPLICATION, TYPE II OR UNSPECIFIED TYPE, NOT STATED UNCONTROLLED 08/15/2019 LEISURE, ROSALVAKenneth W 272.4 OTHER AND UNSPECIFIED HYPERLIPIDEMIA 08/15/2019 LEISURE, ROSALVAKenneth W 278.00 OBESITY, UNSPECIFIED 08/15/2019 LEISURE, ROSALVAKenneth W 401.9 UNSPECIFIED ESSENTIAL HYPERTENSION 08/15/2019 LEISURE, ROSALVAA W 427.31 ATRIAL FIBRILLATION 08/15/2019 LEISURE, ROSALVAA W 786.09 OTHER DYSPNEA AND RESPIRATORY ABNORMALITY 08/15/2019 LEISURE, ROSALVAA W 786.5 CHEST PAIN 08/15/2019 LEISURE, ROSALVAA W E11.9 TYPE 2 DIABETES MELLITUS WITHOUT COMPLICATIONS 08/15/2019 LEISURE, ROSALVAA W E66.9 OBESITY, UNSPECIFIED 08/15/2019 LEISURE, ROSALVAA W E78.5 HYPERLIPIDEMIA, UNSPECIFIED 08/15/2019 LEISURE, LYNIETA W I10 ESSENTIAL (PRIMARY) HYPERTENSION 08/15/2019 LEISURE, ROSALVAA W I48.91 UNSPECIFIED ATRIAL FIBRILLATION 08/15/2019 LEISURE, LYNRAJEEVA W R06.02 SHORTNESS OF BREATH 08/15/2019 LEISURE, LYNIETA W R07.9 CHEST PAIN, UNSPECIFIED 08/15/2019 LEISURE, LYNRAJEEVA W 250.00 DIABETES MELLITUS WITHOUT MENTION OF COMPLICATION, TYPE II OR UNSPECIFIED TYPE, NOT STATED UNCONTROLLED 08/15/2019 LEISURE, LYNRAJEEVA W 272.4 OTHER AND UNSPECIFIED HYPERLIPIDEMIA 08/15/2019 LEISURE, LYNRAJEEVA W 278.00 OBESITY, UNSPECIFIED 08/15/2019 LEISURE, LYNIETA W 305.1 TOBACCO USE DISORDER 08/15/2019 LEISURE, LYNRAJEEVA W 401.9 UNSPECIFIED ESSENTIAL HYPERTENSION 08/15/2019 LEISURE, LYNRAJEEVA W 427.31 ATRIAL FIBRILLATION 08/15/2019 LEISURE, ROSALVAA W 786.09 OTHER DYSPNEA AND RESPIRATORY ABNORMALITY 08/15/2019 LEISURE, ROSALVAA W 786.5 CHEST PAIN 08/15/2019 LEISURE, ROSALVAA W E11.9 TYPE 2 DIABETES MELLITUS WITHOUT COMPLICATIONS 08/15/2019 LEISURE, ROSALVAA W E66.9 OBESITY, UNSPECIFIED 08/15/2019 LEISURE, ROSALVAA W E78.5 HYPERLIPIDEMIA, UNSPECIFIED 08/15/2019 LEISURE, ROSALVAA W F17.29 0 NICOTINE DEPENDENCE, OTHER TOBACCO PRODUCT, UNCOMPLICATED 08/15/2019 LEISURE, ROSALVAA W I10 ESSENTIAL (PRIMARY) HYPERTENSION 08/15/2019 LEISURE, DARLINESERENITY W I48.91 UNSPECIFIED ATRIAL FIBRILLATION 08/15/2019 LEISURE, ROSALVAA W R06.02 SHORTNESS OF BREATH 08/15/2019 LEISURE, ROSALVAA W R07.9 CHEST PAIN, UNSPECIFIED 08/15/2019 LEISURE, ROSALVAA W 250.00 DIABETES MELLITUS WITHOUT MENTION OF COMPLICATION, TYPE II OR UNSPECIFIED TYPE, NOT STATED UNCONTROLLED 08/15/2019 LEISURE, ROSALVAA W 272.4 OTHER AND UNSPECIFIED HYPERLIPIDEMIA 08/15/2019 LEISURE, LYNRAJEEVA W 278.00 OBESITY, UNSPECIFIED 08/15/2019 LEISURE, LYNIETA W 305.1 TOBACCO USE DISORDER 08/15/2019 LEISURE, LYNRAJEEVA W 401.9 UNSPECIFIED ESSENTIAL HYPERTENSION 08/15/2019 LEISURE, LYNIETA W 427.31 ATRIAL FIBRILLATION 08/15/2019 LEISURE, ROSALVAA W 786.09 OTHER DYSPNEA AND RESPIRATORY ABNORMALITY 08/15/2019 LEISURE, LYNIETA W 786.5 CHEST PAIN 08/15/2019 LEISURE, LYNRAJEEVA W E11.9 TYPE 2 DIABETES MELLITUS WITHOUT COMPLICATIONS 08/15/2019 LEISURE, ROSALVAA W E66.9 OBESITY, UNSPECIFIED 08/15/2019 LEISURE, ROSALVAA W E78.5 HYPERLIPIDEMIA, UNSPECIFIED 08/15/2019 LEISURE, ROSALVAA W F17.29 0 NICOTINE DEPENDENCE, OTHER TOBACCO PRODUCT, UNCOMPLICATED 08/15/2019 LEISURE, LYNIETA W I10 ESSENTIAL (PRIMARY) HYPERTENSION 08/15/2019 LEISURE, LYNIETA W I48.91 UNSPECIFIED ATRIAL FIBRILLATION 08/15/2019 LEISURE, LYNIETA W R06.02 SHORTNESS OF BREATH 08/15/2019 LEISURE, LYNRAJEEVA W R07.9 CHEST PAIN, UNSPECIFIED 08/15/2019 LEISURE, ROSALVAA W 250.00 DIABETES MELLITUS WITHOUT MENTION OF COMPLICATION, TYPE II OR UNSPECIFIED TYPE, NOT STATED UNCONTROLLED 08/15/2019 LEISURE, ROSALVAA W 272.4 OTHER AND UNSPECIFIED HYPERLIPIDEMIA 08/15/2019 LEISURE, LYNIETA W 278.00 OBESITY, UNSPECIFIED 08/15/2019 LEISURE, LYNIETA W 305.1 TOBACCO USE DISORDER 08/15/2019 LEISURE, ROSALVAA W 401.9 UNSPECIFIED ESSENTIAL HYPERTENSION 08/15/2019 LEISURE, ROSALVAA W 427.31 ATRIAL FIBRILLATION 08/15/2019 LEISURE, ROSALVAA W 782.3 EDEMA 08/15/2019 LEISURE, ROSALVAA W 786.09 OTHER DYSPNEA AND RESPIRATORY ABNORMALITY 08/15/2019 LEISURE, ROSALVAA W 786.5 CHEST PAIN 08/15/2019 LEISURE, ROSALVAA W E11.9 TYPE 2 DIABETES MELLITUS WITHOUT COMPLICATIONS 08/15/2019 LEISURE, ROSALVAA W E66.9 OBESITY, UNSPECIFIED 08/15/2019 LEISURE, ROSALVAA W E78.5 HYPERLIPIDEMIA, UNSPECIFIED 08/15/2019 LEISURE, ROSALVAA W F17.29 0 NICOTINE DEPENDENCE, OTHER TOBACCO PRODUCT, UNCOMPLICATED 08/15/2019 LEISURE, LYNIETA W I10 ESSENTIAL (PRIMARY) HYPERTENSION 08/15/2019 LEISURE, LYNIETA W I48.91 UNSPECIFIED ATRIAL FIBRILLATION 08/15/2019 LEISURE, LYNIETA W R06.02 SHORTNESS OF BREATH 08/15/2019 LEISURE, LYNRAJEEVA W R07.9 CHEST PAIN, UNSPECIFIED 08/15/2019 LEISURE, ROSALVAA W R60.9 EDEMA, UNSPECIFIED 08/15/2019 LEISURE, ROSALVAA W 250.00 DIABETES MELLITUS WITHOUT MENTION OF COMPLICATION, TYPE II OR UNSPECIFIED TYPE, NOT STATED UNCONTROLLED 08/15/2019 LEISURE, LYNRAJEEVA W 272.4 OTHER AND UNSPECIFIED HYPERLIPIDEMIA 08/15/2019 LEISURE, LYNRAJEEVA W 278.00 OBESITY, UNSPECIFIED 08/15/2019 LEISURE, LYNIETA W 305.1 TOBACCO USE DISORDER 08/15/2019 LEISURE, LYNRAJEEVA W 401.9 UNSPECIFIED ESSENTIAL HYPERTENSION 08/15/2019 LEISURE, LYNRAJEEVA W 427.31 ATRIAL FIBRILLATION 08/15/2019 LEISURE, LYNRAJEEVA W 782.3 EDEMA 08/15/2019 LEISURE, ROSALVAA W 786.09 OTHER DYSPNEA AND RESPIRATORY ABNORMALITY 08/15/2019 LEISURE, ROSALVAA W 786.5 CHEST PAIN 08/15/2019 LEISURE, ROSALVAA W E11.9 TYPE 2 DIABETES MELLITUS WITHOUT COMPLICATIONS 08/15/2019 LEISURE, DARLINERAJEEVA W E66.9 OBESITY, UNSPECIFIED 08/15/2019 LEISURE, ROSALVAA W E78.5 HYPERLIPIDEMIA, UNSPECIFIED 08/15/2019 LEISURE, ROSALVAA W F17.29 0 NICOTINE DEPENDENCE, OTHER TOBACCO PRODUCT, UNCOMPLICATED 08/15/2019 LEISURE, DARLINERAJEEVA W I10 ESSENTIAL (PRIMARY) HYPERTENSION 08/15/2019 LEISURE, DARLINERAJEEVA W I48.91 UNSPECIFIED ATRIAL FIBRILLATION 08/15/2019 LEISURE, ROSALVAA W R06.02 SHORTNESS OF BREATH 08/15/2019 LEISURE, DARLINERAJEEVA W R07.9 CHEST PAIN, UNSPECIFIED 08/15/2019 LEISURE, ROSALVAA W R60.9 EDEMA, UNSPECIFIED 08/15/2019 LEISURE, ROSALVAA W 250.00 DIABETES MELLITUS WITHOUT MENTION OF COMPLICATION, TYPE II OR UNSPECIFIED TYPE, NOT STATED UNCONTROLLED 08/15/2019 LEISURE, LYNRAJEEVA W 272.4 OTHER AND UNSPECIFIED HYPERLIPIDEMIA 08/15/2019 LEISURE, LYNRAJEEVA W 278.00 OBESITY, UNSPECIFIED 08/15/2019 LEISURE, ROSALVAA W 305.1 TOBACCO USE DISORDER 08/15/2019 LEISURE, LYNRAJEEVA W 401.9 UNSPECIFIED ESSENTIAL HYPERTENSION 08/15/2019 LEISURE, DESIRAE W 427.31 ATRIAL FIBRILLATION 08/15/2019 LEISURE, DESIRAE W 782.3 EDEMA 08/15/2019 LEISURE, DESIRAE W 786.09 OTHER DYSPNEA AND RESPIRATORY ABNORMALITY 08/15/2019 LEISURE, DESIRAE W 786.5 CHEST PAIN 08/15/2019 LEISURE, DESIRAE W E11.9 TYPE 2 DIABETES MELLITUS WITHOUT COMPLICATIONS 08/15/2019 LEISURE, DESIRAE W E66.9 OBESITY, UNSPECIFIED 08/15/2019 LEISURE, DESIRAE W E78.5 HYPERLIPIDEMIA, UNSPECIFIED 08/15/2019 LEISURE, DESIRAE W F17.29 0 NICOTINE DEPENDENCE, OTHER TOBACCO PRODUCT, UNCOMPLICATED 08/15/2019 LEISURE, DESIRAE W I10 ESSENTIAL (PRIMARY) HYPERTENSION 08/15/2019 LEISURE, DESIRAE W I48.91 UNSPECIFIED ATRIAL FIBRILLATION 08/15/2019 LEISURE, DESIRAE Schrader R06.02 SHORTNESS OF BREATH 08/15/2019 LEISURE, DESIRAE Schrader R07.9 CHEST PAIN, UNSPECIFIED 08/15/2019 LEISURE, DESIRAE Schrader R60.9 EDEMA, UNSPECIFIED 08/17/2019 LAWTON DO, DAVE Ot E11.42 TYPE 2 DIABETES MELLITUS WITH DIABETIC P 08/17/2019 LAWTON DO, DAVE Ot E66.2 MORBID (SEVERE) OBESITY WITH ALVEOLAR HY 08/17/2019 LAWTON DO, DAVE Ot E78.5 HYPERLIPIDEMIA, UNSPECIFIED 08/17/2019 LAWTON DO, DAVE Ot F17.22 0 NICOTINE DEPENDENCE, CHEWING TOBACCO, UN 08/17/2019 LAWTON DO, DAVE Ot I11.0 HYPERTENSIVE HEART DISEASE WITH HEART FA 08/17/2019 LAWTON DO, DAVE Ot I21.4 NON-ST ELEVATION (NSTEMI) MYOCARDIAL INF 08/17/2019 LAWTON DO, DAVE Ot 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 08/17/2019 LAWTON DO, DAVE Ot I48.91 UNSPECIFIED ATRIAL FIBRILLATION 08/17/2019 LAWTON DO, DAVE Ot I50.21 ACUTE SYSTOLIC (CONGESTIVE) HEART FAILUR 08/17/2019 LAWTON DO, DAVE Ot I87.2 VENOUS INSUFFICIENCY (CHRONIC) (PERIPHER 08/17/2019 LAWTON DO, DAVE Ot Z68.44 BODY MASS INDEX (BMI) 60.0-69.9, ADULT 08/17/2019 DAVE LAWTON DO Ot Z79.84 LONG-TERM (CURRENT) USE OF ORAL HYPOGLYC Procedures Code Description [place] [id number] TSERING ADHIKARI VENIPUNCTURE 07/03/[id number] GF R CALC (RESULT ONLY) 07/03/2013 09599 CMP 07/03/2013 99742 LIPI D PANEL 07/03/2013 78778 CBC 07/03/2013 50423 TSH 07/03/2013 03796 A1C (IN-HOUSE) 07/04/2013 12453 TEST OSTERONE PANEL (FREE, TOTAL, and SHBG) 07/04/2013 65062 A1C (IN-HOUSE) 08/27/2013 79785 THER APUTIC INJ SQ/IM 08/28/2013 J1070 Depo -Testosterone 100 mg/mL oil 08/29/2013 39025 THER APUTIC INJ SQ/IM 09/24/2013 30645 THER APUTIC INJ SQ/IM 10/29/2013 69886 TEST OSTERONE TOTAL MALES 10/29/2013 99329 THER APUTIC INJ SQ/IM 12/16/2013 57388 THER APUTIC INJ SQ/IM 01/16/2014 91126 A1C (IN-HOUSE) 01/16/2014 750148P DI LATION OF 2 COR ART WITH 2 DRUG-ELUT, 08/16/2019 [id number] ME ASURE OF CARDIAC SAMPL PRESSURE, L H 08/16/2019 [id number] FL UOROSCOPY OF MULT COR ART USING L OSM 08/16/2019 [id number] FL UOROSCOPY OF LEFT HEART USING LOW OSMO 08/16/2019 Results Test Result Range CBC - 03/28/18 08:22 WHITE BLOOD CELL COUNT 6.3 Thousand/uL 3 .8-10.8 RED BLOOD CELL COUNT 5.01 Million/uL 4.2 0-5.80 HEMOGLOBIN 13.8 g/dL 13.2-17.1 HEMATOCRIT 42.6 % 38.5-50.0 MCV 85.0 fL 80.0-100.0 MCH 27.5 pg 27.0-33.0 MCHC 32.4 g/dL 32.0-36.0 RDW 14.9 % 11.0-15.0 PLATELET COUNT 230 Thousand/uL 140-400 MPV 10.7 fL 7.5-12.5 ABSOLUTE NEUTROPHILS 4662 cells/uL 1500- 7800 ABSOLUTE LYMPHOCYTES 951 cells/uL 850-39 00 ABSOLUTE MONOCYTES 510 cells/uL 200-950 ABSOLUTE EOSINOPHILS 139 cells/uL 15-500 ABSOLUTE BASOPHILS 38 cells/uL 0-200 NEUTROPHILS 74 % NRG LYMPHOCYTES 15.1 % NRG MONOCYTES 8.1 % NRG EOSINOPHILS 2.2 % NRG BASOPHILS 0.6 % NRG TSH - 03/28/18 08:22 TSH 2.56 mIU/L 0.40-4.50 BNP - 03/28/18 08:22 B TYPE NATRIURETIC PEPTIDE (BNP) 249 pg/mL <100 BMP - 04/08/18 17:39 GLUCOSE 142 mg/dL 65-99 UREA NITROGEN (BUN) 22 mg/dL 7-25 CREATININE 1.22 mg/dL 0.70-1.33 eGFR NON-AFR. FIJIAN 68 mL/min/1.73m2 > OR = 60 eGFR 79 mL/min/1.73m2 > OR = 60 BUN/CREATININE RATIO NOT APPLICABLE (calc) 6-22 SODIUM 138 mmol/L 135-146 POTASSIUM 3.8 mmol/L 3.5-5.3 CHLORIDE 101 mmol/L 98-110 CARBON DIOXIDE 26 mmol/L 20-32 CALCIUM 9.2 mg/dL 8.6-10.3 CMP - 06/04/19 17:51 GLUCOSE 155 mg/dL 65-99 UREA NITROGEN (BUN) 29 mg/dL 7-25 CREATININE 1.41 mg/dL 0.70-1.33 eGFR NON-AFR. FIJIAN 56 mL/min/1.73m2 > OR = 60 eGFR 65 mL/min/1.73m2 > OR = 60 BUN/CREATININE RATIO 21 (calc) 6-22 SODIUM 140 mmol/L 135-146 POTASSIUM 4.1 mmol/L 3.5-5.3 CHLORIDE 100 mmol/L 98-110 CARBON DIOXIDE 30 mmol/L 20-32 CALCIUM 9.8 mg/dL 8.6-10.3 PROTEIN, TOTAL 7.5 g/dL 6.1-8.1 ALBUMIN 4.2 g/dL 3.6-5.1 GLOBULIN 3.3 g/dL (calc) 1.9-3.7 ALBUMIN/GLOBULIN RATIO 1.3 (calc) 1.0-2. 5 BILIRUBIN, TOTAL 0.4 mg/dL 0.2-1.2 ALKALINE PHOSPHATASE 106 U/L 40-115 AST 17 U/L 10-35 ALT 26 U/L 9-46 Cardiac Panel - 08/15/19 07:07 CK 31 U/L 26-174 CK-MB 1.0 ng/ml 0.0-9.2 Myoglobin 34.3 ng/ml 1.6-154.9 Troponin <0.020 ng/mL 0.0-0.4 Complete blood count (CBC) with automate d white blood cell (WBC) differential - 08/15/19 12:21 Blood leukocytes automated count (number/volume) 7.0 10*3/uL 4.3-11.0 Blood erythrocytes automated count (number/volume) 4.44 10*6/uL 4.35-5.85 Venous blood hemoglobin measurement (mass/volume) 12.8 g/dL 13.3-17.7 Blood hematocrit (volume fraction) 40 % 40-54 Automated erythrocyte mean corpuscular volume 91 [ foz_us] 80-99 Automated erythrocyte mean corpuscular h emoglobin (mass per erythrocyte) 29 pg 25-34 Automated erythrocyte mean corpuscular h emoglobin concentration measurement (mass/volume) 32 g/dL 32-36 Automated erythrocyte distribution width ratio 15. 9 % 10.0- 14.5 Automated blood platelet count (count/volume) 218 10*3/uL 130-400 Automated blood platelet mean volume measurement 10.5 [foz_us] 7.4-10.4 Automated blood neutrophils/100 leukocytes 76 % 42-75 Automated blood lymphocytes/100 leukocytes 11 % 12-44 Blood monocytes/100 leukocytes 9 % 0-12 Automated blood eosinophils/100 leukocytes 3 % 0-10 Automated blood basophils/100 leukocytes 0 % 0-10 Blood neutrophils automated count (number/volume) 5.3 10*3 1.8-7.8 Blood lymphocytes automated count (number/volume) 0.8 10*3 1.0-4.0 Blood monocytes automated count (number/volume) 0. 6 10*3 0.0-1.0 Automated eosinophil count 0.2 10*3/uL 0 .0-0.3 Automated blood basophil count (count/volume) 0.0 10*3/uL 0.0-0.1 Comprehensive metabolic panel - 08/15/19 12:21 Serum or plasma sodium measurement (moles/volume) 138 mmol/L 135-145 Serum or plasma potassium measurement (moles/volume) 3.9 mmol/L 3.6-5.0 Serum or plasma chloride measurement (moles/volume) 103 mmol/L 98-107 Carbon dioxide 25 mmol/L 21-32 Serum or plasma anion gap determination (moles/volume) 10 mmol/L 5-14 Serum or plasma urea nitrogen measurement (mass/volume ) 24 mg/dL 7-18 Serum or plasma creatinine measurement (mass/volume) 1.19 mg/dL 0.60-1.30 Serum or plasma urea nitrogen/creatinine mass ratio 20 NRG Serum or plasma creatinine measurement w ith calculation of estimated glomerular filtration rate > NRG Serum or plasma glucose measurement (mass/volume) 129 mg/dL 70-105 Serum or plasma calcium measurement (mass/volume) 8.5 mg/dL 8.5-10.1 Serum or plasma total bilirubin measurement (mass/volu me) 0.3 mg/dL 0.1-1.0 Serum or plasma alkaline phosphatase edwige surement (enzymatic activity/volume) 88 U/L 40-136 Serum or plasma aspartate aminotransfera se measurement (enzymatic activity/volume) 17 U/L 5-34 Serum or plasma alanine aminotransferase measurement (enzymatic activity/volume) 31 U/L 0-55 Serum or plasma protein measurement (mass/volume) 7.0 g/dL 6.4-8.2 Serum or plasma albumin measurement (mass/volume) 3.8 g/dL 3.2-4.5 CALCIUM CORRECTED 8.7 mg/dL 8.5-10.1 Serum or plasma troponin i.cardiac measu rement (mass/volume) - 08/15/19 12:21 Serum or plasma troponin i.cardiac measurement (mass/v olume) 0.046 ng/mL <0.028 Serum or plasma lithium measurement (mol es/volume) - 08/15/19 12:21 BNP PT 270.9 pg/mL <100.0 Capillary blood glucose measurement by g lucometer (mass/volume) - 08/15/19 13:23 Capillary blood glucose measurement by glucometer (mas s/volume) 145 mg/dL 70-110 Arterial blood gas measurement - 0 14:41 Blood pCO2 44 mm[Hg] 35-45 Blood pO2 69 mm[Hg] 79-93 Arterial blood bicarbonate measurement (moles/volume) 28 mmol/L 23-27 Arterial blood base excess by calculation 3.2 mmol /L -2.5-2.5 Arterial blood oxygen saturation measurement 95 % 94-100 * Inhaled oxygen flow rate 1L NRG Arterial blood pH measurement with patient temperature correction 7.41 7.37-7.43 Arterial blood carbon dioxide, total measurement (mole s/volume) 29.0 mmol/L 21.0-31.0 Body site LTRAD NRG Assessment of wrist artery patency prior to arterial p uncture POS NRG Setting of ventilation mode NO NR G Measurement of body temperature 36.3 NRG Capillary blood glucose measurement by g lucometer (mass/volume) - 08/15/19 15:16 Capillary blood glucose measurement by glucometer (mas s/volume) 171 mg/dL 70-110 Serum or plasma troponin i.cardiac measu rement (mass/volume) - 08/15/19 18:30 Serum or plasma troponin i.cardiac measurement (mass/v olume) 0.116 ng/mL <0.028 Capillary blood glucose measurement by g lucometer (mass/volume) - 08/15/19 20:52 Capillary blood glucose measurement by glucometer (mas s/volume) 184 mg/dL 70-110 Complete blood count (CBC) with automate d white blood cell (WBC) differential - 08/16/19 00:22 Blood leukocytes automated count (number/volume) 7.4 10*3/uL 4.3-11.0 Blood erythrocytes automated count (number/volume) 4.43 10*6/uL 4.35-5.85 Venous blood hemoglobin measurement (mass/volume) 12.6 g/dL 13.3-17.7 Blood hematocrit (volume fraction) 41 % 40-54 Automated erythrocyte mean corpuscular volume 91 [ foz_us] 80-99 Automated erythrocyte mean corpuscular h emoglobin (mass per erythrocyte) 28 pg 25-34 Automated erythrocyte mean corpuscular h emoglobin concentration measurement (mass/volume) 31 g/dL 32-36 Automated erythrocyte distribution width ratio 16. 1 % 10.0- 14.5 Automated blood platelet count (count/volume) 239 10*3/uL 130-400 Automated blood platelet mean volume measurement 10.2 [foz_us] 7.4-10.4 Automated blood neutrophils/100 leukocytes 76 % 42-75 Automated blood lymphocytes/100 leukocytes 12 % 12-44 Blood monocytes/100 leukocytes 8 % 0-12 Automated blood eosinophils/100 leukocytes 3 % 0-10 Automated blood basophils/100 leukocytes 0 % 0-10 Blood neutrophils automated count (number/volume) 5.7 10*3 1.8-7.8 Blood lymphocytes automated count (number/volume) 0.9 10*3 1.0-4.0 Blood monocytes automated count (number/volume) 0. 6 10*3 0.0-1.0 Automated eosinophil count 0.3 10*3/uL 0 .0-0.3 Automated blood basophil count (count/volume) 0.0 10*3/uL 0.0-0.1 Comprehensive metabolic panel - 08/16/19 00:22 Serum or plasma sodium measurement (moles/volume) 140 mmol/L 135-145 Serum or plasma potassium measurement (moles/volume) 3.6 mmol/L 3.6-5.0 Serum or plasma chloride measurement (moles/volume) 101 mmol/L 98-107 Carbon dioxide 26 mmol/L 21-32 Serum or plasma anion gap determination (moles/volume) 13 mmol/L 5-14 Serum or plasma urea nitrogen measurement (mass/volume ) 24 mg/dL 7-18 Serum or plasma creatinine measurement (mass/volume) 1.26 mg/dL 0.60-1.30 Serum or plasma urea nitrogen/creatinine mass ratio 19 NRG Serum or plasma creatinine measurement w ith calculation of estimated glomerular filtration rate 60 NRG Serum or plasma glucose measurement (mass/volume) 154 mg/dL 70-105 Serum or plasma calcium measurement (mass/volume) 8.6 mg/dL 8.5-10.1 Serum or plasma total bilirubin measurement (mass/volu me) 0.4 mg/dL 0.1-1.0 Serum or plasma alkaline phosphatase edwige surement (enzymatic activity/volume) 82 U/L 40-136 Serum or plasma aspartate aminotransfera se measurement (enzymatic activity/volume) 16 U/L 5-34 Serum or plasma alanine aminotransferase measurement (enzymatic activity/volume) 31 U/L 0-55 Serum or plasma protein measurement (mass/volume) 7.0 g/dL 6.4-8.2 Serum or plasma albumin measurement (mass/volume) 3.8 g/dL 3.2-4.5 CALCIUM CORRECTED 8.8 mg/dL 8.5-10.1 Serum or plasma troponin i.cardiac measu rement (mass/volume) - 08/16/19 00:22 Serum or plasma troponin i.cardiac measurement (mass/v olume) 0.089 ng/mL <0.028 Capillary blood glucose measurement by g lucometer (mass/volume) - 08/16/19 11:45 Capillary blood glucose measurement by glucometer (mas s/volume) 136 mg/dL 70-110 Capillary blood glucose measurement by g lucometer (mass/volume) - 08/16/19 20:41 Capillary blood glucose measurement by glucometer (mas s/volume) 163 mg/dL 70-110 Automated blood complete blood count (he mogram) panel - 08/17/19 03:21 Blood leukocytes automated count (number/volume) 6.7 10*3/uL 4.3-11.0 Blood erythrocytes automated count (number/volume) 4.48 10*6/uL 4.35-5.85 Venous blood hemoglobin measurement (mass/volume) 12.6 g/dL 13.3-17.7 Blood hematocrit (volume fraction) 41 % 40-54 Automated erythrocyte mean corpuscular volume 92 [ foz_us] 80-99 Automated erythrocyte mean corpuscular h emoglobin (mass per erythrocyte) 28 pg 25-34 Automated erythrocyte mean corpuscular h emoglobin concentration measurement (mass/volume) 31 g/dL 32-36 Automated erythrocyte distribution width ratio 16. 0 % 10.0- 14.5 Automated blood platelet count (count/volume) 212 10*3/uL 130-400 Automated blood platelet mean volume measurement 10.5 [foz_us] 7.4-10.4 Whole blood basic metabolic panel - 07/30 04/18 03:21 Serum or plasma sodium measurement (moles/volume) 138 mmol/L 135-145 Serum or plasma potassium measurement (moles/volume) 3.9 mmol/L 3.6-5.0 Serum or plasma chloride measurement (moles/volume) 104 mmol/L 98-107 Carbon dioxide 23 mmol/L 21-32 Serum or plasma anion gap determination (moles/volume) 11 mmol/L 5-14 Serum or plasma urea nitrogen measurement (mass/volume ) 16 mg/dL 7-18 Serum or plasma creatinine measurement (mass/volume) 1.08 mg/dL 0.60-1.30 Serum or plasma urea nitrogen/creatinine mass ratio 15 NRG Serum or plasma creatinine measurement w ith calculation of estimated glomerular filtration rate > NRG Serum or plasma glucose measurement (mass/volume) 181 mg/dL 70-105 Serum or plasma calcium measurement (mass/volume) 8.5 mg/dL 8.5-10.1 Lipid 1996 panel - 08/17/19 03:21 Serum or plasma triglyceride measurement (mass/volume) 164 mg/dL <150 Serum or plasma cholesterol measurement (mass/volume) 143 mg/dL < 200 Serum or plasma cholesterol in HDL measurement (mass/v olume) 34 mg/dL 40-60 Cholesterol in LDL [mass/volume] in serum or plasma by direct assay 86 mg/dL 1-129 Serum or plasma cholesterol in VLDL measurement (mass/ volume) 33 mg/dL 5-40 Capillary blood glucose measurement by g lucometer (mass/volume) - 08/17/19 11:33 Capillary blood glucose measurement by glucometer (mas s/volume) 162 mg/dL 70-110 Encounters ACCT No. Visit Date/Time Discharge Status Pt. Type Provider Facility Loc./Unit Complaint [id number] 01/16/2014 16:02:00 01/16/2014 23:59: 59 [facility] Outpatient BRADEN FERNANDEZ DO [id number] 12/16/2013 17:19:00 12/16/2013 23:59: 59 [facility] Outpatient BRADEN FERNANDEZ DO [id number] 12/15/2013 17:35:00 12/15/2013 23:59: 59 [facility] Outpatient GERMÁN PEÑALOZA APRN [id number] 10/29/2013 17:14:00 10/29/2013 23:59: 59 [facility] Outpatient GERMÁN PEÑALOZA APRN [id number] 09/24/2013 17:17:00 09/24/2013 23:59: 59 [facility] Outpatient LISA CHILDS MD [id number] 08/28/2013 17:28:00 08/28/2013 23:59: 59 [facility] Outpatient BRADEN FERNANDEZ DO [id number] 07/03/2013 07:54:00 07/03/2013 23:59: 59 [facility] Outpatient LISA CHILDS MD [id number] 10/01/2019 09:16:00 03/04/2 020 11:41:00 DIS Emergency CARVAJAL JOELLE ORDOÑEZ [facility] ER NOSE BLEED-12 HRS [id number] 08/15/2019 09:55:00 13:45:00 DIS Inpatient DAVE LAWTON DO V [facility] ICU AFIB [id number] 08/27/2019 17:00:00 08/27/2019 23:59:5 9 CLS Outpatient GERMÁN PEÑALOZA APRN [facility] [place] [id number] 06/04/2019 17:20:00 Document Registration [id number] 04/08/2018 17:40:00 Document Registration [id number] 03/28/2018 09:00:00 Document Registration [id number] 08/15/2019 06:55:00 08/15/2019 09:15 :00 DIS Outpatient DESIRAE HOLLAND [facility] ER [id number] 08/15/2019 07:10:24 Document Registration
== END 2019-10-01 11:41 | disposition home or self-care (01) ==
LOC: EDUNIT# 09:15 → ER 09:16
DX: R04.0 Epistaxis (principal); I10 Essential (primary) hypertension; Z79.82 Long term (current) use of aspirin; Z79.02 Long term (current) use of antithrombotics/antiplatelets; Z79.84 Long term (current) use of oral hypoglycemic drugs; Z79.01 Long term (current) use of anticoagulants
CPT/HCPCS: 30903

== ENCOUNTER → 2021-09-05 | Outpatient (CLI) | payer SELFPAY ==
[~2021-09-05] MED LIST changes: +AMLO-251 PO; -AMLO10TA7 PO; +ASPI-1238 PO; -ASPI-983 PO; +CEPH500T PO; -LISI40TA PO; +LISI40TA9 PO; +MULT-567 PO; -MULT1TAB69 PO
== END ==
LOC: CARD 12:30
PROVIDERS: ATTEND Internal Medicine Cardiovascular Disease
DX: R55 Syncope and collapse (principal)
CPT/HCPCS: 93225; 93226

== ENCOUNTER 2021-11-24 06:35 | Outpatient (CLI) | payer SELFPAY ==
[~2021-11-24] VITALS: Ht 182.9 cm; Wt 217.4 kg
[2021-11-24] MEDS ORDERED: INSU200I4 SQ (12:24)
[2021-11-24] MEDS ORDERED: BUDE10.2 IH (12:24)
[2021-11-24] MEDS ORDERED: DAPA1TAB5 PO (12:24)
[2021-11-24] MEDS ORDERED: SEMA1PEN3 SQ (12:24)
== END 2021-11-24 13:05 | disposition home or self-care (01) ==
LOC: PREOP 06:35
PROVIDERS: ATTEND Surgery
DX: Z01.818 Encounter for other preprocedural examination (principal)

== ENCOUNTER 2021-12-05 07:51 | Day surgery (SDC) | payer OTHER ==
[~2021-12-05] VITALS: Ht 182.9 cm; Wt 217.4 kg
[~2021-12-05 07:51] MED LIST changes: +BUDE10.2 IH; +DAPA1TAB5 PO; +INSU200I4 SQ; +SEMA1PEN3 SQ
[2021-12-05] MEDS ORDERED: LACTATED RINGERS 1,000 ML IV ONE (08:11)
[2021-12-05] MEDS ORDERED: LACTATED RINGERS 1,000 ML IV STA (08:17)
[2021-12-05 08:25] VITALS: BP 183/133
--- NOTE | 2021-12-05 08:43 | Progress Note-Pre Operative ---
Pre-Operative Progress Note H&P Reviewed The H&P was reviewed, patient examined and no changes noted. Time Seen by Provider: 08:33 Date H&P Reviewed: December 05, 2021 Time H&P Reviewed: 08:33 Pre-Operative Diagnosis: Rectal bleeding ELFEGO OTTO DO December 05, 2021 08:43
[2021-12-05] MEDS ORDERED: KETAMINE 50 MG/5 ML SYRINGE ONE (08:49)
[2021-12-05] MEDS ORDERED: PROPOFOL INJECTION 50 ML IV ONE (08:49)
[2021-12-05] MEDS ORDERED: MIDAZOLAM 2 MG/2 ML (VERSED) VIAL ONE ×2 (08:49→09:10)
[2021-12-05] MEDS ORDERED: ESMOLOL 100 MG/10 ML (BREVIBLOC) VIAL ONE (08:49)
[2021-12-05 09:30] VITALS: BP 156/103
--- NOTE | 2021-12-05 09:33 | Progress Note-Post Operative ---
Post-Operative Progess Note Surgeon (s)/Pull Over (s) Surgeon ELFEGO OTTO DO Pull Over: none Pre-Operative Diagnosis Rectal bleeding Post-Operative Diagnosis Polyps Diverticula int hemorrhoids Procedure & Operative Findings Date of Procedure 12/05/21 Procedure Performed/Findings Colonoscopy with snare polypectomy PROCEDURE NOTE: After informed consent was obtained, the patient was brought to the endoscopy suite, placed in bed in left lateral decubitus position. He was administered IV sedation by the CORNICE MAKER who then monitored his vitals the entire time, heart rate, blood pressure and pulse ox and the scope was inserted, pushed all the way to about 140 cm and pushed into the cecum. On the way in noted a lot of frothy yellowish liquid covering the rosenberg, able to flush most of it off. Found two polyps in the ascending colon and removed them with a snare. The smaller one mostly burned off, unsure if we found the small piece of polyp. Once in the cecum took a picture of appendiceal orifice and then slowly withdrew the scope insufflating to look circumferentially at the rosenberg starting in the cecum, up the ascending colon to the hepatic flexure, then down the transverse colon to the splenic flexure. Into the descending colon where I saw diverticula throughout this portion and took a picture. I also found a very flat polyp and removed it with a snare. Continued down into the sigmoid and then into the rectal vault and retroflexed the scope. Took pictures of the internal hemorrhoids. The patient tolerated the procedure. He was recovered in endoscopy suite. Anesthesia Type IV sedation by anesthesia Estimated Blood Loss Estimated blood loss (mL): scant Specimens/Packing Specimens Removed asc colon polyp desc colon polyp ELFEGO OTTO DO December 05, 2021 09:33
--- NOTE | 2021-12-05 09:34 | Endoscopy Discharge Instruct ---
Endo Procedure/Findings Findings 1.: Polyp 2.: Diverticulosis 3.: Internal Hemorrhoids Discharge Instructions - Activity: You might feel a little sleepy until tomorrow. This is due to the medicine you received to relax you. Until tomorrow, you should: NOT drive a car, operate machinery or power tools. NOT drink any alcoholic beverages. NOT make any important decisions or sign importortant papers. Do not return to work until tomorrow, unless otherwise instructed. Resume previous activities tomorrow. Diet: Start by taking liquids. If you tolerate liquids, advance to solid food. 1.: Colonscopy in 5 years Notify Physician - If you experience excessive bleeding, unusual abdominal pain, fever, or chest pain, contact your doctor immediately. ELFEGO OTTO DO December 05, 2021 09:34
[2021-12-05 10:00] VITALS: BP 178/139
[2021-12-05 10:39] VITALS: BP 178/139
--- NOTE | 2021-12-05 11:36 | Anesthesia-General Post-Op ---
MAC Patient Condition Mental Status/LOC: Same as Preop Cardiovascular: Satisfactory Nausea/Vomiting: Absent Respiratory: Satisfactory Pain: Controlled Complications: Absent Post Op Complications Complications None Follow Up Care/Instructions Patient Instructions None needed. Anesthesiology Discharge Order Discharge Order Patient was doing well this morning after the procedure, stable vital signs, no apparent adverse anesthesia problems. SAHARA JUAREZ DO December 05, 2021 11:36
== END 2021-12-05 10:39 | disposition home or self-care (01) ==
LOC: ENDO 07:51
PROVIDERS: ATTEND Surgery
DX: D12.2 Benign neoplasm of ascending colon (principal); K63.5 Polyp of colon; K57.31 Diverticulosis of large intestine without perforation or abscess with bleeding; K64.8 Other hemorrhoids; L03.211 Cellulitis of face; E11.9 Type 2 diabetes mellitus without complications; F17.220 Nicotine dependence, chewing tobacco, uncomplicated; E66.01 Morbid (severe) obesity due to excess calories; Z68.44 Body mass index [BMI] 60.0-69.9, adult; Z79.01 Long term (current) use of anticoagulants; Z79.4 Long term (current) use of insulin; Z79.82 Long term (current) use of aspirin; Z98.61 Coronary angioplasty status; Z28.310 Unvaccinated for COVID-19; Z28.9 Immunization not carried out for unspecified reason
CPT/HCPCS: 82947

== ENCOUNTER 2021-12-13 10:51 | Inpatient (IN) | payer OTHER ==
[~2021-12-13] VITALS: Ht 182.9 cm; Wt 213.5 kg
[2021-12-13] MEDS ORDERED: cefTRIAXone 1 GM PRE-MIX 50 ML IV SCH (11:30)
[2021-12-13 12:00] VITALS: BP 138/88
[2021-12-13] MEDS: LACTATED RINGERS 1,000 ML IV SCH ×3 (12:18→23:43)
--- NOTE | 2021-12-13 13:09 | Consultation - Hospitalist ---
HPI History of Present Illness: HPI/Chief Complaint Pt is a 56yoCM with a PMH of HTn, IDDMII, CAD s/p stents, morbid obesity, tobacco abuse and recent facial cellulitis who presented to the hospital as a direct admit from Dr Davalos's offfice. He has a colonoscopy on 12/05 and was there today for a followup visit but Dr Davalos noticed a large cellulitis on his sacrum extending around his buttock and thigh and opted to direct admit him for IV abx. he states this started about 4-5 days ago but he has been able to see it. His family member is at bedside and actually thinks it looks a little better than it did this morning. He reports that he had a bad facial cellulitis with periorbital edema last month as well which responded to Keflex. He reports a l william history of DM but has been out of his insulin for the past 2 weeks. He was taking 42 units of Tresiba daily and his blood sugars ran around 200 but since being off of it they have been in the 230s. He reports compliance with him DM oral meds. I am consulted for medical management. Source: patient Date Seen 12/13/21 Attending Physician Jose Davalos DO [facility] Referring Physician Date of Admission December 13, 2021 at 11:34 Home Medications & Allergies Home Medications Reviewed patient Home Medication Reconciliation performed by pharmacy medication reconciliations blood bank laboratory technician and/or nursing. Patients Allergies have been reviewed. Allergies Allergies Coded Allergies No Known Drug Allergies (Unverified08/15/19) Past Sejhvqk-Zjblay-Gzxphy Hx Patient Social History Marrital Status: Tobacco Use?: Yes Smokeless type used: Chew Smokeless Tobacco Frequency: Current Everyday User Seasonal Allergies Seasonal Allergies: Yes Current Status Primary Language: Thai Past Medical History Surgeries: Coronary Stent Asthma Currently Using CPAP: No (NOT TESTED YET) Atrial Fibrillation, Cardiomyopathy, High Cholesterol, Hypertension, Valvular Heart Disease Gastroesophageal Reflux, Diverticulosis Diabetes, Non-Insulin dep Depression Blood Disorders: No Family Medical History Reviewed Nursing Family Hx No Pertinent Family Hx Review of Systems Constitutional: chills, diaphoresis, fever (subjective - few days ago) EENTM: no symptoms reported Respiratory: no symptoms reported Cardiovascular: no symptoms reported Gastrointestinal: no symptoms reported Genitourinary: no symptoms reported Musculoskeletal: no symptoms reported Skin: see HPI Psychiatric/Neurological: No Symptoms Reported Physical Exam Physical Exam Vital Signs Vital Signs - First Documented 12/13/21 12/13/21 12/13/21 12:00 16:00 20:00 Temp 36.2 Pulse 103 Resp 20 B/P (MAP) 138/88 (105) Pulse Ox 93 O2 Delivery Room Air O2 Flow Rate 1.00 Capillary Refill : Height, Weight, BMI Height: '" Weight: lbs. oz. kg; 64.98 BMI Method: General Appearance: No Apparent Distress, Chronically ill, Obese HEENT: PERRL/EOMI, Moist Mucous Membranes; No Scleral Icterus (L), No Scleral Icterus (R) Respiratory: Lungs Clear, No Accessory Muscle Use Cardiovascular: Regular Rate, Rhythm, No Murmur Gastrointestinal: Normal Bowel Sounds, Non Tender, Soft Genital/Rectal: Other (large area of sacral erythema wtih blistering, crosses midline and wrap around right lateral thigh- exam obscured somewhat by recent barrier cream application and dressing by wound physician) Extremity: Swelling (2+ pitting, chronic) Neurologic/Psychiatric: Alert, Oriented x3, Normal Mood/Affect Skin: Normal Color, Warm/Dry, [place] (on buttocks) Results Results/Procedures Labs Laboratory Tests 12/13/21 15:45 12/14/21 05:28 Patient resulted labs reviewed. Assessment/Plan Assessment and Plan Assess & Plan/Chief Complaint Cellulitis Sacral pressure injury Continue IV abx Broadn to Vanc/Zosyn/Clinda given known DM- add probiotic Sepsis labs and cultures pending CT unable to be obtained due to patient weight (475 lb but weight limit on CT is 450lb) IDDMII Out of insulin x2 weeks States blood sugars normally run around 230 Thinks his a1c was 7.2 a few months ago HTN a-fib CAD s/p stents Continue home meds when med rec done HERMILO Unsure if he uses a CPAP at home, can bring in if needed Tobacco abuse Recommend cessation Diagnosis/Problems Diagnosis/Problems (1) CAD (coronary artery disease) Qualifiers: Coronary Disease-Associated Artery/Lesion type: [place] artery [place] vs. transplanted heart: [place] heart Associated angina: without angina Qualified Codes: I25.10 - Atherosclerotic heart disease of [place] coronary artery without angina pectoris (2) Atrial fibrillation Qualifiers: Atrial fibrillation type: paroxysmal Qualified Codes: I48.0 - Paroxysmal atrial fibrillation (3) Essential (primary) hypertension Status: Chronic (4) Insulin dependent diabetes mellitus Status: Acute (5) Obesity (6) Tobacco abuse (7) Cellulitis and abscess of buttock (8) Atrial fibrillation with normal ventricular rate Status: Acute Clinical Quality Measures Smoking Cessation Counseling: Counseling-Symptomatic: 3-10 Minutes Copy Copies To 1: [facility]/MICAH IZAGUIRRE MD December 13, 2021 13:09
[2021-12-13] MEDS ORDERED: VANCOMYCIN INJECTION 0.1 MG in NS (IVPB) 250 ML IV SCH (13:15)
[2021-12-13] MEDS ORDERED: VANCOMYCIN 2000 MG/NS 500 ML IVPB IV SCH ×2 (13:30)
[2021-12-13] MEDS ORDERED: PIPERACILLIN SODIUM/TAZOBACTAM 4.5 GM in NS (IVPB) 100 ML IV NR (13:45)
[2021-12-13] MEDS: fluCOnazole (DIFLUCAN) 100 MG TAB PO SCH (13:50)
--- NOTE | 2021-12-13 14:38 | Physical Therapy Progress Note ---
Therapy Progress Note Order for PT evaluation received. However patient politely refuses. Patient states he doesn't want to get out of the bed at this time and in fact, is getting around and ambulating without difficulty. Patient states he doesn't have any need for physical therapy. Patient will be discharged at this time. Explained to patient if he sees need in the future for PT to contact his nurse and she can notify us. ELLIS RAI PT December 13, 2021 14:38
[2021-12-13] MEDS ORDERED: ASCO-262 PO (14:43)
[2021-12-13] MEDS ORDERED: CLOP75TA28 PO (14:43)
[2021-12-13] MEDS ORDERED: ATOR80TA76 PO (14:43)
[2021-12-13] MEDS ORDERED: FURO40TA4 PO (14:43)
[2021-12-13] MEDS ORDERED: RIVA20TA PO (14:43)
[2021-12-13] MEDS ORDERED: LISI40TA9 PO (14:43)
[2021-12-13] MEDS ORDERED: DAPA1TAB5 PO (14:43)
[2021-12-13] MEDS ORDERED: AMLO-250 PO (14:43)
[2021-12-13] MEDS ORDERED: FOLI1TAB33 PO (14:43)
[2021-12-13] MEDS ORDERED: FERR-74 PO (14:43)
[2021-12-13] MEDS ORDERED: SEMA2PEN SQ (14:43)
[2021-12-13] MEDS ORDERED: GABA300C PO (14:43)
[2021-12-13] MEDS: ENOXAPARIN 60 MG/0.6 ML (LOVENOX) SYR SC SCH (14:54)
--- NOTE | 2021-12-13 15:03 | Wound Care Assessment ---
Wound Care Assessment Date Seen by Provider: December 13, 2021 Time Seen by Provider: 11:30 Chief Complaint Sacral wound HPI Pankaj is a pleasant 56 year old gentleman admitted directly from follow up at Dr. Davalos's office. He recently underwent colonoscopy and notes that since that time he has had numerous issues. He notes that approximately 1 week ago he began to have an area of redness on his sacrum which has greatly worsened in the last 4-5 days. He does also have significant swelling of his scrotum. His sacral/buttock cellulitis has an area of erythema that now extends to his upper thigh and is moving anteriorly. He does also have what looks like underlying s tage 2 pressure changes on the sacrum/gluteal cleft. He has erythema and satellite lesions in his inguinal region consistent with cutaneous candidiasis along with significant scrotal edema and erythema. There is no obvious fluctuance in this area. Benny has been out of his insulin for 2 weeks. His FSBS is usually around 200 and since he has been out of his insulin it has been in 230's. He is also morbidly obese with a BMI of 64.98. The rapidly progressing nature of his cellulitis along with his obesity and DM does make necrotizing fasciitis a concern but Benny is so obese that he cannot have imaging to confirm. He is currently on broad spectrum antibiotics (Vanc, Zosyn and Clindamycin). Past Medical History: Admits Diabetes Type II, Admits Heart Disease obesity, atrial fibrillation Smoking Status: Never a Smoker Recreational Drug Use: No Other Social Hx Chewing tobacco Review of Systems General: Other (Morbid obesity) Musculoskeletal: leg pain Exam Capillary Refill : General Appearance: no apparent distress, obese Extremities: pedal edema Neurologic/Psychiatric: alert, normal mood/affect, oriented x 3 Skin: warm/dry Skin Problem Location: other (sacrum, buttock, R. thigh, and scrotum) Skin Character: bullous, erythema, swelling, thickening, warm Large area of sacral cellulitis (dark red in color with sharp margins) with extension to bilateral buttock/gluteal cleft and R. thigh (moving anteriorly). Stage 2 pressure changes to bilateral gluteal cleft noted with some serous weeping (large). The epithelialization is none, there is no granulation and large slough. Margins are flat. Groin with moisture, erythema with satellite lesions consistent with cutaneous candidal infection Assessment/Plan/Dx Assessment: 1. Cellulitis of sacrum, buttocks, and scrotum likely started from stage 2 pressure injury 2. Cutaneous candidal infection of groin 3. Poorly controlled DM2 4. Morbid obesity Plan: 1. Agree with broad spectrum antibiotic therapy. Imaging to rule out necrotizing fasciitis would be ideal but is not possible due to patient's body habitus 2. Barrier ointment and bordered foam dressing with frequent positional changes to avoid lying flat on area of concern 3. Diflucan 100mg daily for next 7 days (longer if indicated) 4. Aggressive glycemic control needed for wound healing (per primary team) 5. Weight loss is advisable VIK GIBSON MD December 13, 2021 15:03
[2021-12-13 16:00] VITALS: BP 148/90
[2021-12-13 16:07] LABS: BASOPHILS % (AUTO) 0 % (0-10); EOSINOPHILS # (AUTO) 0.2 10^3/uL (0.0-0.3); EOSINOPHILS % (AUTO) 2 % (0-10); HEMATOCRIT 38 % (40-54); HEMOGLOBIN 11.5 g/dL (13.3-17.7); LYMPHOCYTES # (AUTO) 0.6 10^3/uL (1.0-4.0); LYMPHOCYTES % (AUTO) 7 % (12-44); MEAN CORPUSCULAR HEMOGLOBIN 25 pg (25-34); MEAN CORPUSCULAR HGB CONC 30 g/dL (32-36); MEAN CORPUSCULAR VOLUME 82 fL (80-99); MEAN PLATELET VOLUME 10.3 fL (9.0-12.2); MONOCYTES # (AUTO) 0.7 10^3/uL (0.0-1.0); MONOCYTES % (AUTO) 8 % (0-12); NEUTROPHILS # (AUTO) 6.9 10^3/uL (1.8-7.8); NEUTROPHILS % (AUTO) 82 % (42-75); PLATELET COUNT 272 10^3/uL (130-400); WHITE BLOOD COUNT 8.4 10^3/uL (4.3-11.0)
[2021-12-13 16:12] LABS: ALBUMIN 3.1 GM/DL (3.2-4.5)
[2021-12-13 16:13] LABS: POTASSIUM 3.6 MMOL/L (3.6-5.0)
[2021-12-13 16:14] LABS: CALCIUM 8.7 MG/DL (8.5-10.1)
[2021-12-13 16:15] LABS: TOTAL PROTEIN 6.7 GM/DL (6.4-8.2)
[2021-12-13 16:17] LABS: BILIRUBIN,TOTAL 0.5 MG/DL (0.1-1.0)
[2021-12-13 16:18] LABS: CREATININE SERUM 1.07 MG/DL (0.60-1.30)
[2021-12-13] MEDS: CLINDAMYCIN 600 MG/50 ML IVPB 50 ML IV SCH ×2 (16:22→23:44)
[2021-12-13 16:43] LABS: ANISOCYTOSIS SLIGHT; EOSINOPHILS % (MANUAL) 5 %; HYPOCHROMASIA SLIGHT; LYMPHOCYTES % (MANUAL) 8 %; MONOCYTES % (MANUAL) 5 %; NEUTROPHILS % (MANUAL) 82 %; POIKILOCYTOSIS SLIGHT
[2021-12-13] MEDS: inSUlin ASPART (NovoLOG) 1 UNIT/0.01 ML (CHARGE PER UNIT) SC SCH ×2 (16:57→22:02)
[2021-12-13] MEDS: LACTOBACILLUS ACIDOPHILUS (PROBIOTIC) CAPSULE PO SCH (18:31)
[2021-12-13 19:34] VITALS: BP 166/88
[2021-12-13] MEDS: PIPERACILLIN SODIUM/TAZOBACTAM 4.5 GM in NS (IVPB) 100 ML IV SCH (20:19)
[2021-12-13 23:50] VITALS: BP 122/84
[2021-12-14] VITALS (7 sets, daily range): BP systolic 122–172; BP diastolic 74–102
[2021-12-14] MEDS: VANCOMYCIN 1 GM/NS 250 ML IVPB IV SCH ×6 (00:15→15:11)
[2021-12-14] MEDS: ENOXAPARIN 60 MG/0.6 ML (LOVENOX) SYR SC SCH (03:55)
[2021-12-14] MEDS: PIPERACILLIN SODIUM/TAZOBACTAM 4.5 GM in NS (IVPB) 100 ML IV SCH ×3 (03:55→19:42)
[2021-12-14 05:58] LABS: BASOPHILS # (AUTO) 0.1 10^3/uL (0.0-0.1); BASOPHILS % (AUTO) 1 % (0-10); EOSINOPHILS # (AUTO) 0.2 10^3/uL (0.0-0.3); EOSINOPHILS % (AUTO) 3 % (0-10); HEMATOCRIT 39 % (40-54); HEMOGLOBIN 11.4 g/dL (13.3-17.7); LYMPHOCYTES # (AUTO) 0.6 10^3/uL (1.0-4.0); LYMPHOCYTES % (AUTO) 8 % (12-44); MEAN CORPUSCULAR HEMOGLOBIN 25 pg (25-34); MEAN CORPUSCULAR HGB CONC 29 g/dL (32-36); MEAN CORPUSCULAR VOLUME 84 fL (80-99); MEAN PLATELET VOLUME 10.1 fL (9.0-12.2); MONOCYTES # (AUTO) 0.7 10^3/uL (0.0-1.0); MONOCYTES % (AUTO) 10 % (0-12); NEUTROPHILS # (AUTO) 5.9 10^3/uL (1.8-7.8); NEUTROPHILS % (AUTO) 78 % (42-75); PLATELET COUNT 213 10^3/uL (130-400); WHITE BLOOD COUNT 7.6 10^3/uL (4.3-11.0)
[2021-12-14 06:05] LABS: CALCIUM 8.8 MG/DL (8.5-10.1)
[2021-12-14 06:07] LABS: TOTAL PROTEIN 6.7 GM/DL (6.4-8.2)
[2021-12-14 06:09] LABS: BILIRUBIN,TOTAL 0.4 MG/DL (0.1-1.0)
[2021-12-14 06:10] LABS: CREATININE SERUM 0.98 MG/DL (0.60-1.30)
[2021-12-14] MEDS: CLINDAMYCIN 600 MG/50 ML IVPB 50 ML IV SCH ×2 (06:41→16:31)
[2021-12-14] MEDS: inSUlin ASPART (NovoLOG) 1 UNIT/0.01 ML (CHARGE PER UNIT) SC SCH ×4 (06:41→21:00)
[2021-12-14] MEDS: fluCOnazole (DIFLUCAN) 100 MG TAB PO SCH (08:12)
[2021-12-14] MEDS: LACTOBACILLUS ACIDOPHILUS (PROBIOTIC) CAPSULE PO SCH ×3 (08:12→17:35)
--- NOTE | 2021-12-14 10:36 | Progress Note - Hospitalist ---
Subjective HPI/CC On Admission Date Seen by Provider: December 14, 2021 Pt is a 56yoCM with a PMH of HTn, IDDMII, CAD s/p stents, morbid obesity, tobacco abuse and recent facial cellulitis who presented to the hospital as a direct admit from Dr Davalos's offfice. He has a colonoscopy on 12/05 and was there today for a followup visit but Dr Davalos noticed a large cellulitis on his sacrum extending around his buttock and thigh and opted to direct admit him for IV abx. he states this started about 4-5 days ago but he has been able to see it. His family member is at bedside and actually thinks it looks a little better than it did this morning. He reports that he had a bad facial cellulitis with periorbital edema last month as well which responded to Keflex. He reports a long history of DM but has been out of his insulin for the past 2 weeks. He was taking 42 units of Tresiba daily and his blood sugars ran around 200 but since being off of it they have been in the 230s. He reports compliance with him DM oral meds. I am consulted for medical management. Subjective/Events-last exam Pt reports feeling ok. He states he woudl like to go home but is pretty sore. States his hip is very sore as well. Offered X-ray and he declined stating he just wants to go home. Helped him to stand up and go to the bathroom and it took roughly 5 minutes to get him up. Discussed with his to sse how far he is from his baseline and right now she said where he is at is "pathetic." Objective Exam Vital Signs Vital Signs Date Time Temp Pulse Resp B/P (MAP) Pulse Ox O2 Delivery O2 Flow Rate FiO2 12/14/21 07:46 36.0 90 18 124/74 (91) 100 Nasal Cannula 1.00 Capillary Refill : General Appearance: No Apparent Distress, Chronically ill, Obese Respiratory: Lungs Clear, No Respiratory Distress Cardiovascular: Regular Rate, Rhythm, No Murmur Gastrointestinal: Normal Bowel Sounds, Soft Neurologic/Psychiatric: Alert, Oriented x3 Skin: Other (barrier cream obscures exam someone and patient hesitent to have dressing removed but overall erythema looks better. Large blister on right hip.) Results/Procedures Lab Laboratory Tests 12/13/21 15:45 12/14/21 05:28 Patient resulted labs reviewed. Assessment/Plan Assessment and Plan Assess & Plan/Chief Complaint Cellulitis Sacral pressure injury Continue IV abx Vanc/Zosyn/Clinda given known DM- continue probiotic CT unable to be obtained due to patient weight (475 lb but weight limit on CT is 450lb) Surgery managing PT/OT IDDMII Out of insulin x2 weeks States blood sugars normally run around 230- here they have been around 150 Thinks his a1c was 7.2 a few months ago HTN a-fib CAD s/p stents Continue home meds HERMILO Unsure if he uses a CPAP at home, can bring in if needed Tobacco abuse Recommend cessation Diagnosis/Problems Diagnosis/Problems (1) CAD (coronary artery disease) Qualifiers: Coronary Disease-Associated Artery/Lesion type: [place] artery [place] vs. transplanted heart: [place] heart Associated angina: without angina Qualified Codes: I25.10 - Atherosclerotic heart disease of [place] coronary artery without angina pectoris (2) Atrial fibrillation Qualifiers: Atrial fibrillation type: paroxysmal Qualified Codes: I48.0 - Paroxysmal atrial fibrillation (3) Essential (primary) hypertension Status: Chronic (4) Insulin dependent diabetes mellitus Status: Acute (5) Obesity (6) Tobacco abuse (7) Cellulitis and abscess of buttock (8) Atrial fibrillation with normal ventricular rate Status: Acute Clinical Quality Measures Smoking Cessation Counseling: Counseling-Symptomatic: 3-10 Minutes MICAH OLEA MD December 14, 2021 10:36
--- NOTE | 2021-12-14 10:45 | Occ Therapy Progress Note ---
Therapy Progress Note OT orders received and chart was reviewed. Attempt at OT eval. Pt initially refusing stating that he does not have a job and thus does not need therapy for an occupation. Post education on purpose/role of occupational therapy, pt still declining stating that he was indep and continues to be independent with his self cares. He verbalizes the only thing that is difficult for him at this time is going from sitting to standing secondary to scrotal edema. Education provided on support of scrotum by use of sling, antione wrap, or towel/pillow case. Family present in room and agrees that pt does not need therapy. OT to discharge at this time. 1 visit, 6 min Angie Doran OT December 14, 2021 10:45
[2021-12-14] MEDS: LACTATED RINGERS 1,000 ML IV SCH (11:41)
[2021-12-14 12:00] LABS: BILIRUBIN,URINE NEGATIVE (NEGATIVE); CLARITY,URINE CLEAR; COLOR,URINE YELLOW; GLUCOSE, URINE (UA) 2+ (NEGATIVE); KETONES,URINE NEGATIVE (NEGATIVE); LEUKOCYTE ESTERASE ,URINE NEGATIVE (NEGATIVE); NITRITE,URINE NEGATIVE (NEGATIVE); PH,URINE 5.5 (5-9); PROTEIN,URINE NEGATIVE (NEGATIVE)
[2021-12-14] MEDS ORDERED: RT--FLUTICASONE/SALMETEROL 232-14 (AIRDUO RespiCLICK) IH PRN (12:00)
[2021-12-14 12:10] LABS: AMORPHOUS SEDIMENT,UR RARE AMOR URATES /LPF; BACTERIA,URINE TRACE /HPF; SQUAMOUS EPITHELIAL CELL,UR 0-2 /HPF; WBC,URINE 0-2 /HPF
[2021-12-14] MEDS ORDERED: TROUGH ORDER-PHARMACY XX ONE (13:00)
[2021-12-14] MEDS ORDERED: SALINE NASAL SPRAY (OCEAN) 45 ML BTL PRN (16:30)
[2021-12-14] MEDS ORDERED: RIVAROXABAN 20 MG TABLET (XARELTO) PO SCH (17:00)
--- NOTE | 2021-12-14 17:09 | Progress Note - Surgery ---
Subjective Time Seen by a Provider: 10:04 Subjective/Events-last exam Pt seen and examined, states he is tired and can't move; "because of my balls". He said he hasn't gotten out of bed. Review of Systems General: Fatigue Pulmonary: Dyspnea; No Cough Cardiovascular: No: Chest Pain, Palpitations Gastrointestinal: No: Nausea, Vomiting, Abdominal Pain Objective Exam Vital Signs Date Time Temp Pulse Resp B/P (MAP) Pulse Ox O2 Delivery O2 Flow Rate FiO2 12/14/21 16:20 36.2 108 20 172/96 (121) 98 Nasal Cannula 3.00 12/14/21 11:45 36.8 100 18 162/102 (122) 96 Nasal Cannula 1.00 12/14/21 08:00 Room Air 12/14/21 07:46 36.0 90 18 124/74 (91) 100 Nasal Cannula 1.00 12/14/21 04:18 36.0 90 22 129/80 (96) 96 Nasal Cannula 1.00 12/13/21 23:50 36.2 94 22 122/84 (97) 98 Nasal Cannula 1.00 12/13/21 20:21 96 Nasal Cannula 1.00 12/13/21 20:00 96 Nasal Cannula 1.00 12/13/21 19:34 37.2 109 22 166/88 (114) 83 Room Air 12/13/21 17:56 Room Air I & O 12/14/21 07:00 Intake Total 1660 ml Balance 1660 ml Capillary Refill : General Appearance: No Apparent Distress, Chronically ill, Obese HEENT: PERRL/EOMI, Moist Mucous Membranes; No Scleral Icterus (L), No Scleral Icterus (R) Respiratory: Lungs Clear, No Accessory Muscle Use Cardiovascular: Regular Rate, Rhythm, No Murmur Gastrointestinal: non tender, soft, other (scrotum is swollen and red, no necrotic tissue) Extremity: Swelling (2+ pitting, chronic) Neurologic/Psychiatric: Alert, Oriented x3, Normal Mood/Affect Skin: Normal Color, Warm/Dry, Petechia (on legs and buttocks, no has erythema, cellulitis and bullae on right hip) Results Lab Laboratory Tests 12/13/21 19:41: Glucometer 171H 12/14/21 05:28: White Blood Count 7.6, Red Blood Count 4.66, Hemoglobin 11.4L, Hematocrit 39L, Mean Corpuscular Volume 84, Mean Corpuscular Hemoglobin 25, Mean Corpuscular Hemoglobin Concent 29L, Red Cell Distribution Width 21.7H, Platelet Count 213, Mean Platelet Volume 10.1, Immature Granulocyte % (Auto) 1, Neutrophils (%) (Auto) 78H, Lymphocytes (%) (Auto) 8L, Monocytes (%) (Auto) 10, Eosinophils (%) (Auto) 3, Basophils (%) (Auto) 1, Neutrophils # (Auto) 5.9, Lymphocytes # (Auto) 0.6L, Monocytes # (Auto) 0.7, Eosinophils # (Auto) 0.2, Basophils # (Auto) 0.1, Immature Granulocyte # (Auto) 0.1, Percent Immature Platelet Fraction 7.5, So dium Level 136, Potassium Level 4.0, Chloride Level 97L, Carbon Dioxide Level 25, Anion Gap 14, Blood Urea Nitrogen 13, Creatinine 0.98, Estimat Glomerular Filtration Rate 91, BUN/Creatinine Ratio 13, Glucose Level 155H, Calcium Level 8.8, Corrected Calcium 9.6, Total Bilirubin 0.4, Aspartate Amino Transf (AST/SGOT) 15, Alanine Aminotransferase (ALT/SGPT) 17, Alkaline Phosphatase 100, Total Protein 6.7, Albumin 3.0L 12/14/21 11:30: Urine Color YELLOW, Urine Clarity CLEAR, Urine pH 5.5, Urine Specific [place] <=1.005, Urine Protein NEGATIVE, Urine Glucose (UA) 2+H, Urine Ketones NEGATIVE, Urine Nitrite NEGATIVE, Urine Bilirubin NEGATIVE, Urine Urobilinogen 0.2, Urine Leukocyte Esterase NEGATIVE, Urine RBC (Auto) NEGATIVE, Urine RBC NONE, Urine WBC 0-2, Urine Squamous Epithelial Cells 0-2, Urine Crystals PRESENTH, Urine Amorphous Sediment RARE MENDY URATESH, Urine Bacteria TRACE, Urine Casts NONE, Urine Mucus NEGATIVE, Urine Culture Indicated NO 12/14/21 11:33: Glucometer 172H 12/14/21 13:15: Vancomycin Level Trough 19.7 12/14/21 15:38: Glucometer 140H Microbiology 12/13/21 Blood Culture - Preliminary, Resulted No growth Assessment/Plan Assessment/Plan Assessment/Plan Cellulitis morbid obesity DM Pt's hip looks worse but his labs are not bad. He is getting IV ABX and should get them for another day and may be able to go home. Will check with wound care and IM. Max medical support I told pt he has to move and sit up; he can't just lay on his back and the cellulitis. He said he can't lay on his side or sit up and lean to far forward because then he can't breath. I also encouraged him to work with PT. Clinical Quality Measures Smoking Cessation Counseling: Counseling-Symptomatic: 3-10 Minutes ELFEGO OTTO DO December 14, 2021 17:09
--- NOTE | 2021-12-14 17:15 | History & Physical-Surgical ---
History of Present Illness History of Present Illness Reason for visit/HPI 56 year old male who presented to my office for follow up from recent colonoscopy. Patient reports that he has not been feeling well since 3 days post colonoscopy. He reports he has a rash on his butt that appears to be spreading to his right hip and testicles. "They swole up like oranges and I can't walk because it hurts". It hurts to sit down for long periods of time. He also stated that for two nights he woke up sweating profusely and this was followed by chills and uncontrolled shaking. Unsure what caused this. Otherwise he is having regular bowel movements. He has not had much of an appetite and states he has eaten "about half as much as I usually do." Date of Admission December 13, 2021 at 11:34 Time Seen by a Provider: 10:39 I consulted on this patient on 12/13/21 10:39 Attending Physician [facility] Admitting Physician Admitting Physician: Elfego Otto DO Attending Physician: Elfego Otto DO Consult Allergies and Home Medications Allergies Coded Allergies: No Known Drug Allergies (Unverified , 08/15/19) Patient Home Medication List Home Medication List Reviewed: Yes Amlodipine Besylate (Amlodipine Besylate) 5 Mg Tablet, 5 MG PO DAILY, (Reported) Entered as Reported by: MARCO CARBAJAL on 12/13/211442 Last Action: Reviewed Ascorbate Calcium (Vitamin C) 500 Mg Tablet, 500 MG PO DAILY, (Reported) Entered as Reported by: MARCO CARBAJAL on 12/13/211442 Last Action: Held Atorvastatin Calcium (Atorvastatin Calcium) 80 Mg Tablet, 80 MG PO DAILY, (Reported) Entered as Reported by: MARCO CARBAJAL on 12/13/211442 Last Action: Continued Budesonide/Formoterol Fumarate (Symbicort 160-4.5 Mcg Inhaler) 160 Mcg-4.5 Mcg/Actuation Hfa.aer.ad, 2 PUFF IH BID PRN for SHORTNESS OF BREATH, (Reported) Entered as Reported by: TORI LÓPEZ on 11/24/21 1224 Last Action: Converted Clopidogrel Bisulfate (Clopidogrel) 75 Mg Tablet, 75 MG PO DAILY, (Reported) Entered as Reported by: MARCO CARBAJAL on 12/13/211442 Last Action: Continued Dapagliflozin/Metformin HCl (Xigduo Xr 10 mg-1,000 mg Tab) 10 Mg-1,000 Mg Tab.bp.24h, 1 EACH PO DAILY, (Reported) Entered as Reported by: MARCO CARBAJAL on 12/13/211442 Last Action: Held Ferrous Sulfate (Ferrous Sulfate) 325 Mg (65 Mg Iron) Tablet, 325 MG PO DAILY, (Reported) Entered as Reported by: MARCO CARBAJAL on 12/13/211442 Last Action: Held Folic Acid (Folic Acid) 1 Mg Tablet, 1 MG PO DAILY, (Reported) Entered as Reported by: MARCO CARBAJAL on 12/13/211442 Last Action: Held Furosemide (Furosemide) 40 Mg Tablet, 80 MG PO DAILY, (Reported) Entered as Reported by: MARCO CARBAJAL on 12/13/211442 Last Action: Continued Gabapentin (Neurontin) 300 Mg Capsule, 300 MG PO BID, (Reported) Entered as Reported by: MARCO CARBAJAL on 12/13/211442 Last Action: Continued Glipizide (Glipizide) 10 Mg Tablet, 10 MG PO BID, (Reported) Entered as Reported by: ANSLEY SHEPHERD on 08/15/191113 Last Action: Held Insulin Degludec (Tresiba Flextouch U-200) 200 Unit/Ml (3 Ml) Insuln.pen, 42 UNIT SQ DAILY, (Reported) Entered as Reported by: TORI LÓPEZ on 11/24/21 1224 Last Action: Reviewed Lisinopril (Lisinopril) 40 Mg Tablet, 40 MG PO DAILY, (Reported) Entered as Reported by: MARCO CARBAJAL on 12/13/211442 Last Action: Reviewed Metoprolol Tartrate (Metoprolol Tartrate) 100 Mg Tablet, 200 MG PO BID, (Reported) Entered as Reported by: ANSLEY SHEPHERD on 08/15/19 111 Last Action: Reviewed Rivaroxaban (Xarelto) 20 Mg Tablet, 20 MG PO 1700, (Reported) Entered as Reported by: MARCO CARBAJAL on 12/13/211442 Last Action: Continued Semaglutide (Ozempic) 2 Mg/0.75 Ml (8 Mg/3 Ml) Pen.injctr, 2 MG SQ WED, (Reported) Entered as Reported by: MARCO CARBAJAL on 12/13/21 1443 Last Action: Held Discontinued Medications Aspirin (Aspirin EC) 325 Mg Tablet.dr, 81 MG PO DAILY Discontinued Reason: Duplicate Order Prescribed by: NISHA REYES on 08/17/19 1257 Last Action: Discontinued Atorvastatin Calcium (Atorvastatin Calcium) 80 Mg Tablet, 80 MG PO HS Discontinued Reason: Duplicate Order Prescribed by: NISHA REYES on 08/17/19 1257 Last Action: Discontinued Clopidogrel Bisulfate (Clopidogrel) 75 Mg Tablet, 75 MG PO DAILY Discontinued Reason: Duplicate Order Prescribed by: NISHA REYES on 08/17/19 1257 Last Action: Discontinued Dapagliflozin/Metformin HCl (Xigduo Xr 10 mg-1,000 mg Tab) 10 Mg-1,000 Mg Tab.bp.24h, 1 EACH PO DAILY, (Reported) Discontinued Reason: Duplicate Order Entered as Reported by: TORI LÓPEZ on 11/24/21 1224 Last Action: Discontinued Furosemide (Furosemide) 40 Mg Tablet, 40 MG PO DAILY, (Reported) Discontinued Reason: Duplicate Order Entered as Reported by: ANSLEY SHEPHERD on 08/15/19 1114 Last Action: Discontinued Lisinopril (Lisinopril) 40 Mg Tablet, 40 MG PO DAILY, (Reported) Discontinued Reason: Duplicate Order Entered as Reported by: ANSLEY SHEPHERD on 08/15/19 1114 Last Action: Discontinued Rivaroxaban (Xarelto Tablet) 20 Mg Tablet, 20 MG PO DAILY@1700 Discontinued Reason: Duplicate Order Prescribed by: NISHA REYES on 08/17/19 1257 Last Action: Discontinued Semaglutide (Ozempic) 1 Mg/0.75 Ml (4 Mg/3 Ml) Pen.injctr, 1 MG SQ WEEK, (Reported) Discontinued Reason: Duplicate Order Entered as Reported by: TORI LÓPEZ on 11/24/21 1224 Last Action: Discontinued Past [id number]-[id number] Hx Patient Social History Smoking Status: Never a Smoker Type Used: Smokeless Tobacco Recent Hopitalizations: No Alcohol Use?: No Have you traveled recently?: No Seasonal Allergies Seasonal Allergies: Yes Surgeries History of Surgeries: Yes (CARDIAC STENT X2) Surgeries: Coronary Stent Respiratory History of Respiratory Disorde: Yes Respiratory Disorders: Asthma Cardiovascular History of Cardiac Disorders: Yes (CHRONIC ISCHEMIC HEART DISEASE) Cardiac Disorders: Atrial Fibrillation, Cardiomyopathy, High Cholesterol, Hypertension, Valvular Heart Disease Neurological History of Neurological Disord: No Genitourinary History of Genitourinary Disor: No Gastrointestinal History of Gastrointestinal Di: Yes Gastrointestinal Disorders: Gastroesophageal Reflux, Diverticulosis Musculoskeletal History of Musculoskeletal Dis: No (CHRONIC HIP PAIN) Endocrine History of Endocrine Disorders: Yes Endocrine Disorders: Diabetes, Non-Insulin dep HEENT History of HEENT Disorders: No Cancer History of Cancer: No Psychosocial History of Psychiatric Problem: Yes Behavioral Health Disorders: Depression Integumentary History of Skin or Integumenta: No Blood Transfusions History of Blood Disorders: No Family Medical History Significant Family History: Heart Disease (father grandparents), Cancer (Mother), Diabetes (father mother), Hypertension (father, mother, grandparents) Review of Systems Constitutional: chills, diaphoresis, fever, malaise, weakness EENTM: No blurred vision, No mouth pain, No mouth swelling, No epistaxis Respiratory: No cough, No hemoptysis, No phlegm Cardiovascular: No chest pain; edema, Hx of Intervention Gastrointestinal: No abdominal pain; loss of appetite; No nausea, No vomiting Genitourinary: No dysuria, No hematuria Musculoskeletal: back pain, joint pain, muscle stiffness, muscle cramps Skin: see HPI, rash Psychiatric/Neurological: Depressed; Denies Seizure, Denies Tingling Physical Exam Vital Signs Vital Signs - First Documented 12/13/21 12/13/21 12/13/21 12:00 16:00 20:00 Temp 36.2 Pulse 103 Resp 20 B/P (MAP) 138/88 (105) Pulse Ox 93 O2 Delivery Room Air O2 Flow Rate 1.00 Capillary Refill : Height, Weight, BMI Height: '" Weight: lbs. oz. kg; 63.73 BMI Method: General Appearance: Chronically ill, Obese (super morbidly) Eyes: Bilateral Eye PERRL, Bilateral Eye EOMI HEENT: Moist Mucous Membranes; No Scleral Icterus (L), No Scleral Icterus (R) Neck: Non Tender, Supple Respiratory: Lungs Clear, Normal Breath Sounds, No Accessory Muscle Use, No Respiratory Distress Cardiovascular: Regular Rate, Rhythm, No Murmur Gastrointestinal: No Organomegaly, Non Tender, Soft Rectal: Deferred Genital/Rectal: Other (scrotum enlarged and erythematous, no necrosis, very tender) Extremity: No Calf Tenderness, Pedal Edema (+2) Neurologic/Psychiatric: Alert, Oriented x3, Depressed Affect Skin: Normal Color, Warm/Dry, Other (petechia on legs, large area of eryethematous bullae over sacrum and going down between gluteal cheeks, petechia and slight erythema wrapping around to right hip) Lymphatic: No Adenopathy (neck, axilla) Data Review Labs Laboratory Tests 12/13/21 19:41: Glucometer 171H 12/14/21 05:28: White Blood Count 7.6, Red Blood Count 4.66, Hemoglobin 11.4L, Hematocrit 39L, Mean Corpuscular Volume 84, Mean Corpuscular Hemoglobin 25, Mean Corpuscular Hemoglobin Concent 29L, Red Cell Distribution Width 21.7H, Platelet Count 213, Mean Platelet Volume 10.1, Immature Granulocyte % (Auto) 1, Neutrophils (%) (Auto) 78H, Lymphocytes (%) (Auto) 8L, Monocytes (%) (Auto) 10, Eosinophils (%) (Auto) 3, Basophils (%) (Auto) 1, Neutrophils # (Auto) 5.9, Lymphocytes # (Auto) 0.6L, Monocytes # (Auto) 0.7, Eosinophils # (Auto) 0.2, Basophils # (Auto) 0.1, Immature Granulocyte # (Auto) 0.1, Percent Immature Platelet Fraction 7.5, Sodium Level 136, Potassium Level 4.0, Chloride Level 97L, Carbon Dioxide Level 25, Anion Gap 14, Blood Urea Nitrogen 13, Creatinine 0.98, Estimat Glomerular Filtration Rate 91, BUN/Creatinine Ratio 13, Glucose Level 155H, Calcium Level 8.8, Corrected Calcium 9.6, Total Bilirubin 0.4, Aspartate Amino Transf (AST/SGOT) 15, Alanine Aminotransferase (ALT/SGPT) 17, Alkaline Phosphatase 100, Total Protein 6.7, Albumin 3.0L 12/14/21 11:30: Urine Color YELLOW, Urine Clarity CLEAR, Urine pH 5.5, Urine Specific [place] <=1.005, Urine Protein NEGATIVE, Urine Glucose (UA) 2+H, Urine Ketones NEGATIVE, Urine Nitrite NEGATIVE, Urine Bilirubin NEGATIVE, Urine Urobilinogen 0.2, Urine Leukocyte Esterase NEGATIVE, Urine RBC (Auto) NEGATIVE, Urine RBC NONE, Urine WBC 0-2, Urine Squamous Epithelial Cells 0-2, Urine Crystals PRESENTH, Urine Amorphous Sediment RARE MENDY URATESH, Urine Bacteria TRACE, Urine Casts NONE, Urine Mucus NEGATIVE, Urine Culture Indicated NO 12/14/21 11:33: Glucometer 172H 12/14/21 13:15: Vancomycin Level Trough 19.7 12/14/21 15:38: Glucometer 140H Microbiology 12/13/21 Blood Culture - Preliminary, Resulted No growth Assessment/Plan Assessment/Plan Admission Diagonsis Cellulitis Morbid Obesity DM R/O septicemia Admission Status: Inpatient Order (span 2 midnights) Reason for Inpatient Admission: Pt will need at least 2 days of IV ABX to treat cellulitis and possible septicemia. Assessment/Plan Cellulitis Morbid Obesity DM R/O septicemia Pt will be admitted for IV ABX and may need steroids to calm down reaction. Will start IV fluids, draw labs, blood culture, urine culture. Will get PT, SW and possible home health consults. Also spoke to wound care and Hospitalist for consults. Pt looks bad and the cellulitis does also; will know more when we get some labs and vitals. Prognosis is guarded. Clinical Quality Measures Smoking Cessation Counseling: Counseling-Symptomatic: 3-10 Minutes ELFEGO OTTO DO December 14, 2021 17:15
[2021-12-14] MEDS: GABAPENTIN 300 MG (NEURONTIN) CAP PO SCH (21:00)
[2021-12-14] MEDS: MICONAZOLE 2% POWDER (DESENEX AF) 90 GM TOP SCH (21:00)
[2021-12-14] MEDS ORDERED: MICONAZOLE 2% POWDER (DESENEX AF) 90 GM TOP SCH (21:00)
[2021-12-15] MEDS: VANCOMYCIN 1 GM/NS 250 ML IVPB IV SCH ×4 (00:17→04:39)
[2021-12-15] MEDS: CLINDAMYCIN 600 MG/50 ML IVPB 50 ML IV SCH ×2 (00:31→05:19)
[2021-12-15] MEDS: PIPERACILLIN SODIUM/TAZOBACTAM 4.5 GM in NS (IVPB) 100 ML IV SCH ×2 (02:16→11:28)
[2021-12-15 04:40] VITALS: BP 128/90
[2021-12-15] MEDS: inSUlin ASPART (NovoLOG) 1 UNIT/0.01 ML (CHARGE PER UNIT) SC SCH ×2 (05:19→11:27)
[2021-12-15] MEDS: LACTATED RINGERS 1,000 ML IV SCH (06:01)
[2021-12-15 07:30] VITALS: BP 161/93
[2021-12-15] MEDS: GABAPENTIN 300 MG (NEURONTIN) CAP PO SCH (08:33)
[2021-12-15] MEDS: fluCOnazole (DIFLUCAN) 100 MG TAB PO SCH (08:34)
[2021-12-15] MEDS: LACTOBACILLUS ACIDOPHILUS (PROBIOTIC) CAPSULE PO SCH ×2 (08:34→12:32)
[2021-12-15] MEDS: MICONAZOLE 2% POWDER (DESENEX AF) 90 GM TOP SCH (08:35)
[2021-12-15] MEDS ORDERED: FUROSEMIDE 40 MG (LASIX) TAB PO SCH (09:00)
[2021-12-15] MEDS ORDERED: CLOPIDOGREL 75 MG (PLAVIX) TABLET PO SCH (09:00)
--- NOTE | 2021-12-15 10:46 | Progress Note - Hospitalist ---
Subjective HPI/CC On Admission Date Seen by Provider: December 15, 2021 Time Seen by Provider: 10:42 Pt is a 56yoCM with a PMH of HTn, IDDMII, CAD s/p stents, morbid obesity, tobacco abuse and recent facial cellulitis who presented to the hospital as a direct admit from Dr Davalos's offfice. He has a colonoscopy on 12/05 and was there today for a followup visit but Dr Davalos noticed a large cellulitis on his sacrum extending around his buttock and thigh and opted to direct admit him for IV abx. he states this started about 4-5 days ago but he has been able to see it. His family member is at bedside and actually thinks it looks a little better than it did this morning. He reports that he had a bad facial cellulitis with periorbital edema last month as well which responded to Keflex. He reports a long history of DM but has been out of his insulin for the past 2 weeks. He was taking 42 units of Tresiba daily and his blood sugars ran around 200 but since being off of it they have been in the 230s. He reports compliance with him DM oral meds. I am consulted for medical management. Subjective/Events-last exam Pt reports doing "terribly" when I entered the room. When questioned about what is feeling terrible he states it is because he has a bloody nose and has back pain. Offered pain medication but he declined. He also declined oxygen and states he can "live without oxygen." We discussed reasons for oxygen and goals of oxygen saturation but he states "I've been breathing like this for 5-10 years and haven't quit yet." Objective Exam Vital Signs Vital Signs Date Time Temp Pulse Resp B/P (MAP) Pulse Ox O2 Delivery O2 Flow Rate FiO2 12/15/21 08:00 Room Air 12/15/21 07:30 36.5 111 21 161/93 (115) 97 3.00 Capillary Refill : General Appearance: No Apparent Distress, Chronically ill, Obese Neck: Normal Inspection, Supple Respiratory: Lungs Clear, No Respiratory Distress Gastrointestinal: Normal Bowel Sounds, Non Tender, Soft Neurologic/Psychiatric: Alert, Oriented x3 Results/Procedures Lab Patient resulted labs reviewed. Assessment/Plan Assessment and Plan Assess & Plan/Chief Complaint Cellulitis Sacral pressure injury Continue IV abx Continue Vanc/Zosyn Blood cultures NGTD CT unable to be obtained due to patient weight IDDMII Out of insulin x2 weeks BS well controlled in hospital with SSI A1c 7.7 HTN a-fib CAD s/p stents Continue home meds when med rec done EHRMILO Unsure if he uses a CPAP at home, can bring in if needed declining oxygen supplementation Tobacco abuse Recommend cessation Diagnosis/Problems Diagnosis/Problems (1) CAD (coronary artery disease) Qualifiers: Coronary Disease-Associated Artery/Lesion type: [place] artery [place] vs. transplanted heart: [place] heart Associated angina: without angina Qualified Codes: I25.10 - Atherosclerotic heart disease of [place] coronary artery without angina pectoris (2) Atrial fibrillation Qualifiers: Atrial fibrillation type: paroxysmal Qualified Codes: I48.0 - Paroxysmal atrial fibrillation (3) Essential (primary) hypertension Status: Chronic (4) Insulin dependent diabetes mellitus Status: Acute (5) Obesity (6) Tobacco abuse (7) Cellulitis and abscess of buttock (8) Atrial fibrillation with normal ventricular rate Status: Acute Clinical Quality Measures Smoking Cessation Counseling: Counseling-Symptomatic: 3-10 Minutes MICAH OLEA MD December 15, 2021 10:46
[2021-12-15 11:15] VITALS: BP 137/88
[2021-12-15] MEDS ORDERED: HYPOCHLOROUS ACID/NaCl (VASHE) 250 ML IR SCH (12:00)
--- NOTE | 2021-12-15 12:21 | Wound Care Assessment ---
Wound Care Assessment Date Seen by Provider: December 15, 2021 Time Seen by Provider: 12:11 Chief Complaint Sacral wound HPI Pankaj is a pleasant 56 year old gentleman admitted directly from follow up at Dr. Davalos's office. He recently underwent colonoscopy and notes that since that time he has had numerous issues. He notes that approximately 1 week ago he began to have an area of redness on his sacrum which greatly worsened in the following 4-5 days. He does also have significant swelling of his scrotum. His sacral/buttock cellulitis has improved since admission with some new sloughing of skin. He does also have what looks like underlying stage 2 pressure changes on the sacrum/gluteal cleft. He has erythema and satellite lesions in his inguinal region consistent with cutaneous candidiasis along with significant scrotal edema and erythema. This is all improving with current management. Benny had been out of his insulin for 2 weeks. His FSBS is usually around 200 and since he has been out of his insulin it has been in 230's. He is also mor bidly obese with a BMI of 64.98. The rapidly progressing nature of his cellulitis along with his obesity and DM did make necrotizing fasciitis a concern but Benny is so obese that he could not have imaging to confirm. He is currently on broad spectrum antibiotics (Vanc, Zosyn and Clindamycin) with clinical improvement. I do plan to change his dressings with the new sloughing and weeping of cellulitic areas. I would agree that wound care follow up would be recommended upon d/c home. parking enforcement manager to work with him prior to d/c home on patient assistance for these measures as Suhas is on a fixed income. Past Medical History: Admits Diabetes Type II, Admits Heart Disease Smoking Status: Never a Smoker Recreational Drug Use: No Review of Systems General: Other (morbid obesity) Exam Vital Signs Date Time Temp Pulse Resp B/P (MAP) Pulse Ox O2 Delivery O2 Flow Rate FiO2 12/15/21 11:15 36.5 103 20 137/88 (104) 99 Room Air 12/15/21 07:30 3.00 Capillary Refill : General Appearance: WD/WN, no apparent distress, obese Respiratory: no respiratory distress, no accessory muscle use Extremities: pedal edema Neurologic/Psychiatric: alert, normal mood/affect, oriented x 3 Skin Character: bullous, drainage, erythema, tenderness, thickening, warm Large area of cellulitis from sacrum extending laterally to right anterior thigh. Erythema improved, induration improved. Numerous areas of sloughing and bullae formation with serous fluid in these regions. All appear partial thickness in nature. Erythema and swelling to scrotum improved as well. Results Laboratory Tests 12/14/21 13:15: Vancomycin Level Trough 19.7 12/14/21 15:38: Glucometer 140H 12/14/21 20:37: Glucometer 174H 12/15/21 05:16: Glucometer 194H 12/15/21 11:04: Glucometer 233H Microbiology 12/13/21 Blood Culture - Preliminary, Resulted No growth Microbiology 12/13/21 Blood Culture - Preliminary, Resulted No growth 12/13/21 Blood Culture - Preliminary, Resulted No growth Assessment/Plan/Dx Assessment: 1. Cellulitis of sacrum, buttocks, and scrotum likely started from stage 2 pressure injury 2. Cutaneous candidal infection of groin 3. Poorly controlled DM2 4. Morbid obesity Plan: 1. Agree with broad spectrum antibiotic therapy. Clinical improvement noted. 2. Barrier ointment and bordered foam dressing to sacrum with frequent positional changes to avoid lying flat on area of concern. Cleanse all open bullae with vashe. Place aquacel Ag HF to wound beds and cover with bordered foam dressings. Change daily. 3. Diflucan 100mg daily for next 7 days (longer if indicated) 4. Aggressive glycemic control needed for wound healing (per primary team). This is improving. 5. Weight loss is advisable 6. Follow up in clinic for resolution of sloughing/bullous changes from cellulitis advisable. Agree with case management working with patient on patient assistance to make this possible VIK GIBSON MD December 15, 2021 12:21
--- NOTE | 2021-12-15 12:36 | Progress Note - Surgery ---
Subjective Time Seen by a Provider: 09:53 Subjective/Events-last exam Pt seen and examined, sitting up at side of bed. States he just wants to go home, but still worried about being able to move around because of his testicles. Review of Systems General: No Chills, No Night Sweats; Fatigue, Malaise Pulmonary: Dyspnea; No Cough Cardiovascular: No: Chest Pain, Palpitations Gastrointestinal: No: Nausea, Vomiting, Abdominal Pain Objective Exam Vital Signs Date Time Temp Pulse Resp B/P (MAP) Pulse Ox O2 Delivery O2 Flow Rate FiO2 12/15/21 11:15 36.5 103 20 137/88 (104) 99 Room Air 12/15/21 08:00 Room Air 12/15/21 07:30 36.5 111 21 161/93 (115) 97 Nasal Cannula 3.00 12/15/21 04:40 36.2 98 20 128/90 (103) 96 Nasal Cannula 3.00 12/14/21 23:23 35.8 102 20 132/91 (105) 98 Nasal Cannula 5.00 12/14/21 20:36 96 Nasal Cannula 3.00 12/14/21 20:00 35.9 110 20 152/80 (104) 95 Nasal Cannula 2.00 12/14/21 17:05 100 122/85 (97) 12/14/21 16:20 36.2 108 20 172/96 (121) 98 Nasal Cannula 3.00 I & O 12/15/21 07:00 Intake Total 2320 ml Output Total 800 ml Balance 1520 ml Capillary Refill : General Appearance: No Apparent Distress, Chronically ill, Obese (super morbidly) HEENT: Moist Mucous Membranes; No Scleral Icterus (L), No Scleral Icterus (R) Respiratory: Lungs Clear, No Respiratory Distress Cardiovascular: Regular Rate, Rhythm, No Murmur Gastrointestinal: non tender, soft, other (scrotum is swollen and red, no necrotic tissue) Extremity: No Calf Tenderness, Pedal Edema (+2) Neurologic/Psychiatric: Alert, Oriented x3 Skin: Other (petechia on legs, large area of eryethematous bullae over sacrum and going down between gluteal cheeks, right hip looks about the same, now has erythema and bullae on gluteal cheek) Results Lab Laboratory Tests 12/14/21 13:15: Vancomycin Level Trough 19.7 12/14/21 15:38: Glucometer 140H 12/14/21 20:37: Glucometer 174H 12/15/21 05:16: Glucometer 194H 12/15/21 11:04: Glucometer 233H Microbiology 12/13/21 Blood Culture - Preliminary, Resulted No growth Assessment/Plan Assessment/Plan Assessment/Plan Cellulitis Morbid Obesity DM R/O septicemia Pt will be switched to oral ABX and send home. He is refusing PT and Oxygen, not getting anything else here he can't get at home. Will set up outpt wound care. Clinical Quality Measures Smoking Cessation Counseling: Counseling-Symptomatic: 3-10 Minutes ELFEGO OTTO DO December 15, 2021 12:36
[2021-12-15] MEDS ORDERED: SULF1TAB38 PO (12:39)
[2021-12-15] MEDS ORDERED: CEPH500T PO (12:39)
--- NOTE | 2021-12-15 12:41 | Discharge Inst-Surgical ---
Discharge Inst-Surgical Depart Medication/Instructions New, Converted or Re-Newed RX: Transmitted to Pharmacy Patient Instructions Follow up Appt: Make appointment for 1 week. [phone] Instructions: May shower in 24 hours, no tub bath or soaking. Use incentive spirometer at home as directed. No Smoking Skin/Wound Care: May remove bandages in am. You need to go to outpatient wound care for help with cellulitis and dressings. Symptoms to Report: Appetite Changes, Extremity Discoloration, Numbness/Tingling, Swelling Increased, Bleeding Excessive, Eyesight Changes, Pain Increased, Urine Color Change, Constipation(Persistent), Fever over 101 degree F, Pain/Pressure in chest, Urinating Difficulty, Cough Up/Vomit Blood, Heart Beat Irreg/Pounding, Pain/Pressure in jaw, Cramps in feet or legs, Lightheadedness, Pain/Pressure in shoulder, Diarrhea(Persistent), Memory Changes Suddenly, Questions/Concerns, Weight gain consecutive days, Dizziness/Fainting, Nausea/Vomiting, Shortness of Breath, Weight gain over 2 pounds If questions or concerns contact your physician Or seek help at emergency department. Activity Activity as Tolerated: Yes Driving Instructions: You May Drive Diet Discharge Diet: ADA Diet If Any Problems/Questions/Issu: Contact Your Physician, Go to Emergency Room Skin/Wound Care Infection Signs and Symptoms: Increased Redness, Foul Odor of Wound, Increased Drainage, Skin Itchy or Has a Rash, Increased Swelling, Temperature Above 101 F Bathing Instructions: ELFEGO Cruz DO December 15, 2021 12:41
[2021-12-15] MEDS ORDERED: VANCOMYCIN 750 MG/NS 250 ML IVPB IV SCH ×2 (14:00)
[2021-12-15 14:45] VITALS: BP 137/88
== END 2021-12-15 14:45 | disposition home or self-care (01) | DRG 872 ==
LOC: 4TH 11:34
PROVIDERS: ADMIT Surgery; ATTEND Surgery
DX: A41.9 Sepsis, unspecified organism (principal); L03.312 Cellulitis of back [any part except buttock and flank]; L03.317 Cellulitis of buttock; L03.115 Cellulitis of right lower limb; Z68.44 Body mass index [BMI] 60.0-69.9, adult; I42.9 Cardiomyopathy, unspecified; B37.89 Other sites of candidiasis; N49.2 Inflammatory disorders of scrotum; B37.2 Candidiasis of skin and nail; L89.152 Pressure ulcer of sacral region, stage 2; E66.01 Morbid (severe) obesity due to excess calories; E11.65 Type 2 diabetes mellitus with hyperglycemia; I10 Essential (primary) hypertension; I25.10 Atherosclerotic heart disease of native coronary artery without angina pectoris; Z95.5 Presence of coronary angioplasty implant and graft; F17.210 Nicotine dependence, cigarettes, uncomplicated; J45.909 Unspecified asthma, uncomplicated; E78.00 Pure hypercholesterolemia, unspecified; K21.9 Gastro-esophageal reflux disease without esophagitis; K57.90 Diverticulosis of intestine, part unspecified, without perforation or abscess without bleeding; F32.A Depression, unspecified; I48.0 Paroxysmal atrial fibrillation; Z79.4 Long term (current) use of insulin; Z79.899 Other long term (current) drug therapy
CPT/HCPCS: 36415; 80053; 80202; 81000; 82947; 83036; 85007; 85025; 85027; 87040

== ENCOUNTER 2022-04-26 20:17 | Outpatient (CLI) | payer OTHER ==
[~2022-04-26 20:17] MED LIST changes: +AMLO-250 PO; +ASCO-262 PO; +FERR-74 PO; +FOLI1TAB33 PO; +GABA300C PO; +RIVA20TA PO; +SEMA2PEN SQ; +SULF1TAB38 PO
== END 2022-04-27 06:29 | disposition home or self-care (01) ==
LOC: SLEEP 20:17
PROVIDERS: ATTEND Nurse Practitioner Family
DX: R40.0 Somnolence (principal)
CPT/HCPCS: 95811

== ENCOUNTER → 2022-05-05 | Outpatient (CLI) | payer MEDICARE, OTHER | LOC: CARD 08:07 | PROVIDERS: ATTEND Nurse Practitioner Family | DX: I34.0 Nonrheumatic mitral (valve) insufficiency (principal); I51.7 Cardiomegaly; I25.5 Ischemic cardiomyopathy | CPT/HCPCS: 93306 ==

== ENCOUNTER → 2022-05-23 | Outpatient (CLI) | payer MEDICARE ==
[~2022-05-23] MED LIST changes: +DOBUTamine DRIP 250 ML IV ONE; +DOBUTamine DRIP 250 ML IV SCH
[2022-05-23 10:39] VITALS: BP 149/110
[2022-05-23 11:00] VITALS: BP 110/86
== END ==
LOC: CARD 10:08
PROVIDERS: ATTEND Internal Medicine Cardiovascular Disease
DX: I25.10 Atherosclerotic heart disease of native coronary artery without angina pectoris (principal)